=== PATIENT | male | born 1945 | race Caucasian/White ===

== ENCOUNTER 2019-11-13 18:16 | Inpatient (IN) | payer MEDICARE ==
[2019-11-13] MEDS ORDERED: Dexamethasone 10 MG/ML VIAL ONE (18:55)
[2019-11-13] MEDS ORDERED: Ondansetron ODT 4 MG TAB SL PRN (22:31)
[2019-11-13] MEDS ORDERED: Ondansetron PF 4 MG/2 ML Vial IVP PRN (22:31)
--- NOTE | 2019-11-14 02:51 | PDOC.HHP ---
Hospitalist HPI - History of Present Illness transfer for brain mass, right sided weakness History of Present Illness: This is a 74 year old male with history of hypertension, hyperlipidemia, glaucoma, chronic pain who presented as a transfer from an outside hospital for evaluation of right sided weakness. He was found to have a large left paramedian brain mass upper intracranial brain mass and transferred here for further evaluation. The patient currently has no complaints and does not remember why he came to the hospital. He thinks he may have had numbness in an extremity but doesn't remember. He denies headaches, visual changes, nausea, vomiting, hearing loss, speech changes, falls, weakness in any extremities and denies current numbness. The patient says he has been having memory problems lately and when he went to see his PCP earlier this year, he was unable to recall the three objects that his PCP asked him to remember after five minutes. ED Course: Upon arrival to the ER the patient had BP of 181/107, heart rate of 106, temp 98.5, RR 20, oxygen saturation 96% on room air. CBC and CMP were unremarkable. CT head showed a moderate sized left upper intracranial mass with vasogenic edema. The patient was given IV 10 mg decadron and admitted for further workup. Hospitalist ROS - Review of Systems Constitutional: denies: fever, chills Eyes: denies: pain, vision change ENT: denies: ear pain, ear discharge, mouth pain Respiratory: denies: cough, dry, shortness of breath, pleuritic pain Cardiovascular: denies: chest pain, palpitations, orthopnea, light headedness Gastrointestinal: denies: nausea, vomiting, abdominal pain, diarrhea, constipation Genitourinary: denies: dysuria, frequency, incontinence Musculoskeletal: denies: neck pain, shoulder pain, arm pain Neurological: reports: confusion. denies: incoordination, change in speech, seizures Hospitalist History - Past Medical History Cardiac: reports: HTN Endocrine: reports: Hypothyroidism - Past Surgical History Other Surgical History: Prostatectomy Tonsillectomy Vasectomy - Social History Smoking Status: Never smoker Alcohol: reports: Occassional Drugs: reports: none Living Situation: With Family Activity level: independent ambulation - Exam General Appearance: NAD, awake alert Eye: PERRL, anicteric sclera ENT: normocephalic atraumatic, no oropharyngeal lesions Neck: no JVD Heart: RRR, no murmur, no gallops, no rubs Respiratory: CTAB, no wheezes, no rales, no ronchi Gastrointestinal: soft, non-tender, non-distended, normal bowel sounds Extremities: no cyanosis, no clubbing, no edema Skin: normal turgor, no lesions, no rashes Neurological: cranial nerve grossly intact, normal sensation to touch. negative : facial droop Neurological - other findings: RUE 4/5 to flexion, RLE 4/5, LUE 5/5, LLE 5/5 Musculoskeletal - other findings: 4/5 strength in RUE and RLE Psychiatric: normal affect Psychiatric - other findings: has impaired short-term recall, laughs inappropriately Hospitalist H&P A/P - Plan Plan: CT head: moderate left upper intracranial mass causing mass effect, minimal subfalcine herniation and large region of vasogenic edema likely a neoplastic tumor This is a 74 year old male with past medical history of hypertension, hyperlipidemia, glaucoma who presented to an outside hospital for right sided weakness and was found to have a large left upper intracranial mass, admitted for further workup Left upper intracranial mass with vasogenic edema - noted on CT scan. Will check MRI brain with and without contrast, consult neurosurgery - s/p 10 mg IV decadron in the ER, will order 4 mg IV q4 hours, accuchecks achs Hypertension - continue lisinopril - Hyperlipidemia - continue statin Glaucoma - continue eye drops Hypothyroidism - levothyroxine Code status: DNR
[2019-11-14] MEDS: Acetaminophen 325 MG TAB PO PRN ×2 (04:32→08:41)
[2019-11-14] MEDS: Dexamethasone 4 mg/ml Vial SLOW IVP SCH ×4 (04:32→17:40)
[2019-11-14] MEDS: Levothyroxine Sodium 75 MCG TAB PO SCH (05:33)
[2019-11-14 06:59] LABS: #Lymphocytes 0.7 thou/uL (1.20-3.40); #Monocytes 0.1 thou/uL (0.11-0.59); #Neutrophils 5.4 thou/uL (1.40-6.50); %Basophils 0.1 % (0.0-1.0); %Lymphocytes 11.4 % (21.0-51.0); %Monocytes 1.2 % (0.0-10.0); %Neutrophils 87.2 % (42.0-75.0); Hemoglobin 16.8 g/dL (14.0-18.0); Mean Corpuscular HGB CONC 33.5 g/dL (32.0-36.0); Mean Corpuscular Hemoglobin 31.9 pg (27.0-31.0); Mean Corpuscular Volume 95.5 fL (78.0-98.0); Mean Platelet Volume 9.4 fL (7.4-10.4); Platelet Count 170 thou/uL (130-400); Red Blood Cell (RBC) Count 5.25 mill/uL (4.70-6.10); White Blood Cell (WBC) Count 6.2 thou/uL (4.8-10.8)
[2019-11-14 07:01] LABS: PTT 28.6 SEC (22.9-36.1); Prothrombin Time 13.6 SEC (12.0-14.7)
[2019-11-14 07:17] LABS: Anion Gap 11 mmol/L (10-20); BUN (Urea Nitrogen) 23 mg/dL (8.4-25.7); Calc. Creatinine Clearance 91 mL/min (70-130); Calcium 8.9 mg/dL (7.8-10.44); Carbon Dioxide 24 mmol/L (23-31); Chloride 105 mmol/L (98-107); Estimated GFR-MDRD Greater than 90; Glucose 133 mg/dL (83-110); Potassium 4.4 mmol/L (3.5-5.1); Sodium 136 mmol/L (136-145)
[2019-11-14] MEDS: Timolol 0.5% Ophth Soln 5 ml Bottle EA EYE SCH ×2 (08:40→21:04)
[2019-11-14] MEDS: Brimonidine Tartrate 0.2% Ophth Soln 5 ml Bottle EA EYE SCH ×2 (08:40→21:05)
[2019-11-14] MEDS: Lisinopril 5 MG TAB PO SCH (08:41)
[2019-11-14] MEDS ORDERED: Ondansetron ODT 4 MG TAB PO PRN (09:09)
[2019-11-14] MEDS ORDERED: HYDROcodone/Acetaminophen 5/325 mg Tablet PO PRN ×2 (09:10)
[2019-11-14] MEDS ORDERED: levETIRAcetam In NaCl (Iso-Os) 1,000 MG in Premix Bag 1 BAG IVPB ONE (09:17)
[2019-11-14] MEDS ORDERED: Pantoprazole 40 MG VIAL IVP SCH (10:00)
[2019-11-14] MEDS ORDERED: Citalopram 20 MG TAB PO SCH (11:45)
--- NOTE | 2019-11-14 13:39 | MRI ---
BRAIN MRI WITH AND WITHOUT CONTRAST: HISTORY: Abnormal head CT yesterday. Weakness, dizziness, headache. COMPARISON: None. CORRELATION: Noncontrast head CT 11/13/2019. FINDINGS: Gradient echo sequence: Punctate areas of signal loss associated with the mass noted on CT, likely re presenting areas of previous hemorrhage and hemosiderin. Calvarium: Appropriate T1 marrow signal intensity. Midline brain parenchyma: Unremarkable. Cerebrum:Intraaxial mass centered in the medial left occipital parietal region with associated sulcal effacement and vasogenic edema involving the left occipital and parietal lobes. Postcontrast images demonstrate peripheral heterogeneous enhancement measuring 2.8 cm mediolateral and 3.9 cm ante rior posterior. Though this lesion is intraaxial in location, it does abut the left parafalcine region posteriorly. Based upon coronal reformatted images, this lesion measures 3.9 cm in craniocauda l dimension. Ventricles: No evidence of hydrocephalus. Sinuses and mastoid air cells: Adequate aeration. Diffusion: Central arterial flow is maintained. Absent restricted diffusion. Postcontrast images:Enhancing lesion along the left cerebrum as described above. No additional areas of abnormal parenchymal enhancement. IMPRESSION: Intraparenchymal mass in the posterior left cerebrum as described above. There is associated vasogeni c edema, sulcal effacement, mass effect and [id number] subfalcine herniation. Though the lesion is intraparenchymal, there is a component that abuts the posterior left falx suggesting dural involve ment. Transcribed Date/Time: 11/14/2019 1:59 PM
--- NOTE | 2019-11-14 15:54 | CON ---
DATE OF CONSULTATION: This is Adama Caicedo PA-C dictating a report for Gallo Rubio MD. A 50-minute initial patient evaluation of which greater than 50% of the exam was spent counseling and coordinating the patient's care. Remainder of the exam was spent in review of patient's medical records and formulation of treatment plan. CHIEF COMPLAINT: Right-sided weakness, headache, and confusion. HISTORY OF PRESENT ILLNESS: Mr. Mohr is a pleasant 74-year-old male, who presents to [facility] for the above complaints. Apparently, he was noted to have a large left parafalcine mass on head CT. The patient currently at the time of my examination was alone and no family was able to provide history. According to the patient, he has had intermittent headaches over the past few weeks in the bilateral occipital regions. He denies blurred vision, nausea, vomiting, or falls. He does note, however, over the past 1 to 2 days, progressive weakness into the right arm and leg, which is new for him and prompted him to seek help. Upon review of the patient's medical records, it does appear that he has history of hypertension and hyperlipidemia. In review of his medical records, it also state that he likely has had some memory difficulties over the past several months. Neurosurgery is asked to consult given this mass with surrounding vasogenic edema. The patient was started on Decadron 4 mg q.4 hours. PHYSICAL EXAMINATION: The patient is awake, alert, and appropriate. GCS currently is 15, and he does not appear to be confused. He follows commands equally in all 4 extremities, although does appear to have [id number] right arm and leg weakness. Pupils are equal and sluggishly reactive bilaterally. He has no nystagmus on exam. He does appear to have some right pronator drift on exam. He is able to correctly identify a pen and define its purpose; however, when I asked to define an island, he says "it is where we take cruises." IMPRESSION DIAGNOSIS: Right-sided weakness with left parafalcine mass. PLAN: At this time, I have discussed the patient's case and imaging with Dr. Rubio. We will obtain a brain MRI with and without contrast with stereotactic [facility] protocol. We will amend his Decadron to be 4 mg q.6 hours and I have added Protonix. The patient is a high seizure risk, so I have also started him on a loading dose of a 1000 mg of Keppra with maintenance dose of 500 mg b.i.d. We will follow up once the MRI has been completed, but based on CT scan, it appears as such that the mass may be too large for radiosurgery, may need to discuss the possibility of craniotomy for tumor removal; however, again we will need to wait on the results of the MRI. We will follow up with the patient's family tomorrow, so we can determine the next appropriate step in treatment again after MRI. Please call with any changes in the patient's neurologic status. Otherwise, we will follow up. Job ID: [id number] MTDD
[2019-11-14] MEDS: Latanoprost 0.005% Ophth Soln 2.5 ml Bottle EA EYE SCH (21:04)
[2019-11-14] MEDS: Brinzolamide 1% Ophth SUSP 10 ml Bottle EA EYE SCH (21:05)
[2019-11-14] MEDS: Atorvastatin Calcium 10 MG TAB PO SCH (21:06)
[2019-11-15] MEDS: Dexamethasone 4 mg/ml Vial SLOW IVP SCH ×4 (00:18→17:36)
[2019-11-15] MEDS: Levothyroxine Sodium 75 MCG TAB PO SCH (06:08)
[2019-11-15] MEDS: Brimonidine Tartrate 0.2% Ophth Soln 5 ml Bottle EA EYE SCH ×2 (07:58→20:22)
[2019-11-15] MEDS: Brinzolamide 1% Ophth SUSP 10 ml Bottle EA EYE SCH ×2 (07:59→20:22)
[2019-11-15] MEDS: Citalopram 20 MG TAB PO SCH (08:01)
[2019-11-15] MEDS: Lisinopril 5 MG TAB PO SCH (08:01)
[2019-11-15] MEDS: Pantoprazole 40 MG VIAL IVP SCH (08:05)
--- NOTE | 2019-11-15 10:33 | PRG ---
DATE OF SERVICE: 11/15/2019 This is a 50-minute initial hospital visit note, in which 50 minutes was spent reviewing the imaging record, evaluation, examination, patient formulation of plan. Greater than 50% time was spent in counseling on Mj Mohr. Mr. Mohr is a very pleasant 74-year-old independent gentleman who presented with increasing headache. He was found on head CT to have a hypodense mass near the falx with associated vasogenic edema. MRI shows this to be a contrast-enhancing multilobulated mass with invasion of the splenium of the corpus callosum. I strongly suspect this is a glioblastoma multiforme. Other than confusion, he has no field cut while he has a right pronator drift. He is otherwise neurologically intact. We have initiated Decadron at this time. I discussed extensively with him and his family treatment options, but I would like to do this on a non-emergent or urgent basis. I will arrange for followup in my clinic in the next week or so that we can discuss surgical resection followed by adjuvant therapy glioblastoma. Job ID: [id number]
[2019-11-15] MEDS: Timolol 0.5% Ophth Soln 5 ml Bottle EA EYE SCH ×2 (11:52→20:22)
[2019-11-15] MEDS: Baclofen 10 MG TAB PO PRN (17:36)
--- NOTE | 2019-11-15 18:19 | HP ---
HISTORY OF PRESENT ILLNESS: The patient reports he is doing okay, has no specific complaints. Has reported some visual disturbances, but generally says he feels pretty much at his baseline. He did talk to Dr. Rubio today as did I. Dr. Rubio, explains that he had the mass lesion near the falx with some associated edema. The multilobulated mass with invasion of the splenium of the corpus callosum on MRI strongly suspicious for glioblastoma multiforme. He did talk through potential surgical options and timing. The patient, his and son are in the room. They state that they would like to go ahead and schedule surgery and they felt confident in doing so. However, they do have some type of connection with [facility] and would like to have someone there take a look at that just for reassurances. I had a very long discussion regarding all of these types of options. Ultimately, however, the plan is for the patient to be scheduled for surgery on Sunday and remain on Decadron until then. PHYSICAL EXAMINATION: VITAL SIGNS: Temperature is 97.8, pulse 84, respirations 18, O2 saturation 98% on room air, BP 137/80. GENERAL APPEARANCE: Age-appropriate male in no distress. He is awake and alert. HEART: Regular rate and rhythm. LUNGS: Clear bilaterally. ABDOMEN: Benign. EXTREMITIES: With no significant edema. NEURO: The patient appears to be cognitive, appropriate. Pupils are reactive. He has no nystagmus. He was noted to have slight right-sided weakness, which is apparently better after some Decadron. LABORATORY DATA: Glucose is 128. IMPRESSION AND PLAN: 1. Brain mass consistent with glioblastoma multiforme. As above Neurosurgery has seen the patient, anticipates excision. We will anticipate that occurring on Sunday. In the meantime, continue with the Decadron. 2. Hypertension. Continue Zestril. 3. Hypothyroidism. Continue Synthroid. 4. Hyperlipidemia, continue atorvastatin. 5. Glaucoma, continue latanoprost and Azopt eye drops. TIME SPENT: Time spent in egxn-gj-torn encounter with the patient was 25 minute. Job ID: [id number]
[2019-11-15] MEDS: Atorvastatin Calcium 10 MG TAB PO SCH (20:21)
[2019-11-15] MEDS: Latanoprost 0.005% Ophth Soln 2.5 ml Bottle EA EYE SCH (20:21)
[2019-11-16] MEDS: Dexamethasone 4 mg/ml Vial SLOW IVP SCH ×5 (00:07→23:13)
[2019-11-16] MEDS: Levothyroxine Sodium 75 MCG TAB PO SCH (05:14)
[2019-11-16] MEDS: Citalopram 20 MG TAB PO SCH (08:56)
[2019-11-16] MEDS: Lisinopril 5 MG TAB PO SCH (08:56)
[2019-11-16] MEDS: Brinzolamide 1% Ophth SUSP 10 ml Bottle EA EYE SCH ×2 (08:57→20:07)
[2019-11-16] MEDS: Pantoprazole 40 MG VIAL IVP SCH (08:57)
[2019-11-16] MEDS: Brimonidine Tartrate 0.2% Ophth Soln 5 ml Bottle EA EYE SCH ×2 (08:57→20:07)
[2019-11-16] MEDS: Timolol 0.5% Ophth Soln 5 ml Bottle EA EYE SCH ×2 (08:58→20:07)
--- NOTE | 2019-11-16 10:02 | PDOC.HOSPP ---
- Subjective Encounter Date: 11/16/19 Encounter Time: 10:00 Subjective: Feels well. Having some appropriate emotional response to his diagnosis. Has family coming to visit today. Denies symptoms otherwise. - Objective Vital Signs & Weight: Vital Signs (12 hours) Temp Pulse Resp BP BP Pulse Ox 11/16/19 08:58 95 131/81 11/16/19 08:56 95 131/81 11/16/19 08:26 97.5 F L 95 18 131/81 99 Weight Weight 169 lb 14.4 oz I&O: 11/15/19 11/16/19 11/17/19 06:59 06:59 06:59 Intake Total 580 820 240 Balance 580 820 240 Result Diagrams: 11/14/19 06:03 11/14/19 06:03 Additional Labs: Accuchecks 11/16/19 11/15/19 11/15/19 04:29 19:23 15:53 POC Glucose 123 H 160 H 157 H 11/15/19 11:53 POC Glucose 97 Hospitalist ROS - Medication Medications: Active Medications Generic Name Dose Route Start Last Admin Trade Name Freq PRN Reason Stop Dose Admin Atorvastatin Calcium 10 mg 11/14/19 21:00 11/15/19 20:21 Lipitor PO 10 mg HS SHAKIR Administration Baclofen 10 mg 11/15/19 17:15 11/15/19 17:36 Lioresal PO 10 mg BIDPRN PRN Administration Hiccups Brimonidine Tartrate 1 drop 11/14/19 09:00 11/16/19 08:57 Alphagan 0.2% Ophth Soln EA EYE 1 drop BID SHAKIR Administration Brinzolamide 1 drop 11/14/19 21:00 11/16/19 08:57 Azopt 1% Ophth Susp EA EYE 1 drop BID SHAKIR Administration Citalopram Hydrobromide 20 mg 11/15/19 09:00 11/16/19 08:56 Celexa PO 20 mg DAILY SHAKIR Administration Dexamethasone 4 mg 11/14/19 12:00 11/16/19 05:14 Decadron SLOW IVP 4 mg Q6HR SHAKIR Administration Latanoprost 1 drop 11/14/19 21:00 11/15/19 20:21 Xalatan 0.005% Ophth Soln EA EYE 1 drop HS SHAKIR Administration Levothyroxine Sodium 75 mcg 11/14/19 06:00 11/16/19 05:14 Synthroid PO 75 mcg 0600 SHAKIR Administration Lisinopril 5 mg 11/14/19 09:00 11/16/19 08:56 Zestril PO 5 mg DAILY SHAKIR Administration Pantoprazole Sodium 40 mg 11/15/19 09:00 11/16/19 08:57 Protonix IVP 40 mg DAILY SHAKIR Administration Sodium Chloride 10 ml 11/14/19 09:00 11/16/19 08:58 Flush - Normal Saline IVF 10 ml Q12HR SHAKIR Administration Timolol Maleate 1 drop 11/14/19 09:00 11/16/19 08:58 Timoptic 0.5% Ophth Soln EA EYE 1 drop BID SHAKIR Administration - Exam Heart: RRR, no murmur, no gallops, no rubs, normal peripheral pulses Respiratory: CTAB, no wheezes, no rales, no ronchi, normal chest expansion, no tachypnea, normal percussion Gastrointestinal: soft, non-tender, non-distended, normal bowel sounds, no palpable masses, no hepatomegaly, no splenomegaly, no bruit Skin: normal turgor, no lesions, no rashes Neurological: no focal deficits Musculoskeletal: normal tone, normal strength, no muscle wasting Psychiatric: normal affect, normal behavior, A&O x 3 Hosp A/P (1) Brain mass Code(s): G93.89 - OTHER SPECIFIED DISORDERS OF BRAIN Status: Acute (2) HTN (hypertension) Code(s): I10 - ESSENTIAL (PRIMARY) HYPERTENSION Status: Acute (3) HLD (hyperlipidemia) Code(s): E78.5 - HYPERLIPIDEMIA, UNSPECIFIED Status: Acute (4) Glaucoma Code(s): H40.9 - UNSPECIFIED GLAUCOMA Status: Acute (5) Hypothyroidism Code(s): E03.9 - HYPOTHYROIDISM, UNSPECIFIED Status: Acute (6) Hiccups Code(s): R06.6 - HICCOUGH Status: Acute - Plan Mass consistent with glioblastoma multiforme. Neurosurgery following. Sana, Keppra. Surg on Sunday. Continue home meds. Baclofen prn hiccups. Likely secondary to the Decadron. Change meds to po and encourage ambulation.
--- NOTE | 2019-11-16 13:00 | PRG ---
DATE OF SERVICE: 11/16/2019 This is a 15 minutes subsequent visit note, in which 15 minutes were spent reviewing the imaging record, evaluation, examination of the patient, formulation of plan. Greater than 50% time was spent in counseling on Mj Mohr. Mr. Mohr appears to be in good spirits. He is conversing with his brother and [id number]. I again went over the details of the surgery and at this point they suspect they would like to stay locally, have the surgery as such. I will list it at this point tentatively for Sunday. It should include a stereotactic left parietal craniotomy for tumor resection. They do have some more questions. The family is not present. At this point I will touch base with him again tomorrow. Job ID: [id number]
[2019-11-16] MEDS: Baclofen 10 MG TAB PO PRN (18:26)
[2019-11-16] MEDS: levETIRAcetam 500 MG TAB PO SCH (20:06)
[2019-11-16] MEDS: Atorvastatin Calcium 10 MG TAB PO SCH (20:06)
[2019-11-16] MEDS: Latanoprost 0.005% Ophth Soln 2.5 ml Bottle EA EYE SCH (20:07)
[2019-11-17] MEDS: Dexamethasone 4 mg/ml Vial SLOW IVP SCH ×3 (05:32→18:19)
[2019-11-17] MEDS: Levothyroxine Sodium 75 MCG TAB PO SCH (05:32)
--- NOTE | 2019-11-17 09:08 | PRG ---
DATE OF SERVICE: 11/17/2019 This is Adama Caicedo PA-C dictating a report for Gallo Rubio MD. I have seen Mr. Mohr and he appears to be neurologically intact. He would like to proceed with craniotomy for tumor resection. We plan to do this tomorrow. We will obtain labs and he will be n.p.o. at midnight. Dr. Rubio will return at some point either today or tomorrow to discuss the procedure and further questions with the patient's family, although this has been broached already during his hospitalization. The patient remains neurologically intact and denies headache, and his right upper extremity weakness has improved as he has been on steroids. Please call with any changes in the patient's neurologic status. Otherwise, we will follow up. Job ID: [id number]
[2019-11-17] MEDS: Lisinopril 5 MG TAB PO SCH (09:21)
[2019-11-17] MEDS: Citalopram 20 MG TAB PO SCH (09:21)
[2019-11-17] MEDS: levETIRAcetam 500 MG TAB PO SCH ×2 (09:21→19:24)
[2019-11-17] MEDS: Pantoprazole 40 MG VIAL IVP SCH (09:25)
[2019-11-17] MEDS: Brimonidine Tartrate 0.2% Ophth Soln 5 ml Bottle EA EYE SCH ×2 (09:26→19:25)
[2019-11-17] MEDS: Brinzolamide 1% Ophth SUSP 10 ml Bottle EA EYE SCH ×2 (09:26→19:25)
[2019-11-17] MEDS: Timolol 0.5% Ophth Soln 5 ml Bottle EA EYE SCH ×2 (09:26→19:25)
--- NOTE | 2019-11-17 10:30 | PRG ---
DATE OF SERVICE: This is a 25 minutes subsequent visit note, in which 25 minutes were spent reviewing the imaging, examination of the patient, and formulation of plan. I discussed extensively with the patient and his family that we will proceed to the operating room tomorrow for stereotactic left parieto-occipital craniotomy and tumor resection. I suspect this is a glioblastoma. They understand that the goal will be to be as aggressive as possible to try to reduce neurologic deficit postoperatively. They understand these risks and wished to proceed. Job ID: [id number]
[2019-11-17 10:46] LABS: #Lymphocytes 1.1 thou/uL (1.20-3.40); #Monocytes 0.7 thou/uL (0.11-0.59); #Neutrophils 10.8 thou/uL (1.40-6.50); %Basophils 0.1 % (0.0-1.0); %Eosinophils 0.1 % (0.0-10.0); %Lymphocytes 8.6 % (21.0-51.0); %Monocytes 5.8 % (0.0-10.0); %Neutrophils 85.4 % (42.0-75.0); Mean Corpuscular HGB CONC 33.3 g/dL (32.0-36.0); Mean Corpuscular Hemoglobin 32.1 pg (27.0-31.0); Mean Corpuscular Volume 96.4 fL (78.0-98.0); Mean Platelet Volume 9.2 fL (7.4-10.4); Platelet Count 186 thou/uL (130-400); Red Blood Cell (RBC) Count 5.31 mill/uL (4.70-6.10); White Blood Cell (WBC) Count 12.7 thou/uL (4.8-10.8)
[2019-11-17 10:53] LABS: INR-International Normal Ratio 1.1; PTT 25.7 SEC (22.9-36.1); Prothrombin Time 13.9 SEC (12.0-14.7)
[2019-11-17 11:08] LABS: Anion Gap 11 mmol/L (10-20); BUN (Urea Nitrogen) 24 mg/dL (8.4-25.7); Calc. Creatinine Clearance 80 mL/min (70-130); Calcium 9.2 mg/dL (7.8-10.44); Carbon Dioxide 27 mmol/L (23-31); Chloride 102 mmol/L (98-107); Estimated GFR-MDRD 83; Glucose 185 mg/dL (83-110); Potassium 4.3 mmol/L (3.5-5.1); Sodium 136 mmol/L (136-145)
--- NOTE | 2019-11-17 16:09 | PDOC.PALFU ---
Palliative Care Follow-up Note Attempted to visit with patient, on two occasions there was multiple family and friends visiting with patient. Will follow up.
[2019-11-17] MEDS: Atorvastatin Calcium 10 MG TAB PO SCH (19:24)
[2019-11-17] MEDS: Baclofen 10 MG TAB PO PRN (19:24)
[2019-11-17] MEDS: Latanoprost 0.005% Ophth Soln 2.5 ml Bottle EA EYE SCH (19:25)
--- NOTE | 2019-11-17 22:21 | PDOC.HOSPP ---
- Subjective Subjective: Doing well. Has a lot family around today. Generally in good spirits. - Objective Vital Signs & Weight: Vital Signs (12 hours) Temp Pulse Resp BP BP Pulse Ox 11/17/19 19:50 99 11/17/19 19:25 65 149/85 H 11/17/19 19:12 97.4 F L 65 19 149/85 H 99 Weight Weight 169 lb 14.4 oz I&O: 11/16/19 11/17/19 11/18/19 06:59 06:59 06:59 Intake Total 820 1080 720 Balance 820 1080 720 Result Diagrams: 11/17/19 10:40 11/17/19 10:40 Additional Labs: Accuchecks 11/17/19 11/17/19 11/17/19 19:17 17:13 11:32 POC Glucose 160 H 106 123 H 11/17/19 05:38 POC Glucose 117 H Hospitalist ROS - Medication Medications: Active Medications Generic Name Dose Route Start Last Admin Trade Name Freq PRN Reason Stop Dose Admin Atorvastatin Calcium 10 mg 11/14/19 21:00 11/17/19 19:24 Lipitor PO 10 mg HS SHAKIR Administration Baclofen 10 mg 11/15/19 17:15 11/17/19 19:24 Lioresal PO 10 mg BIDPRN PRN Administration Hiccups Brimonidine Tartrate 1 drop 11/14/19 09:00 11/17/19 19:25 Alphagan 0.2% Ophth Soln EA EYE 1 drop BID SHAKIR Administration Brinzolamide 1 drop 11/14/19 21:00 11/17/19 19:25 Azopt 1% Ophth Susp EA EYE 1 drop BID SHAKIR Administration Citalopram Hydrobromide 20 mg 11/15/19 09:00 11/17/19 09:21 Celexa PO 20 mg DAILY SHAKIR Administration Dexamethasone 4 mg 11/14/19 12:00 11/17/19 18:19 Decadron SLOW IVP 4 mg Q6HR SHAKIR Administration Latanoprost 1 drop 11/14/19 21:00 11/17/19 19:25 Xalatan 0.005% Ophth Soln EA EYE 1 drop HS SHAKIR Administration Levetiracetam 500 mg 11/16/19 21:00 11/17/19 19:24 Keppra PO 500 mg BID SHKAIR Administration Levothyroxine Sodium 75 mcg 11/14/19 06:00 11/17/19 05:32 Synthroid PO 75 mcg 0600 SHAKIR Administration Lisinopril 5 mg 11/14/19 09:00 11/17/19 09:21 Zestril PO 5 mg DAILY SHAKIR Administration Pantoprazole Sodium 40 mg 11/15/19 09:00 11/17/19 09:25 Protonix IVP 40 mg DAILY SHAKIR Administration Sodium Chloride 10 ml 11/14/19 09:00 11/17/19 19:26 Flush - Normal Saline IVF 10 ml Q12HR SHAKIR Administration Timolol Maleate 1 drop 11/14/19 09:00 11/17/19 19:25 Timoptic 0.5% Ophth Soln EA EYE 1 drop BID SHAKIR Administration - Exam General Appearance: NAD, awake alert Heart: RRR, no murmur, no gallops, no rubs, normal peripheral pulses Respiratory: CTAB, no wheezes, no rales, no ronchi, normal chest expansion, no tachypnea, normal percussion Gastrointestinal: soft, non-tender, non-distended, normal bowel sounds, no palpable masses, no hepatomegaly, no splenomegaly, no bruit Psychiatric: normal affect, normal behavior, A&O x 3 Hosp A/P (1) Brain mass Code(s): G93.89 - OTHER SPECIFIED DISORDERS OF BRAIN Status: Acute (2) HTN (hypertension) Code(s): I10 - ESSENTIAL (PRIMARY) HYPERTENSION Status: Acute (3) HLD (hyperlipidemia) Code(s): E78.5 - HYPERLIPIDEMIA, UNSPECIFIED Status: Acute (4) Glaucoma Code(s): H40.9 - UNSPECIFIED GLAUCOMA Status: Acute (5) Hypothyroidism Code(s): E03.9 - HYPOTHYROIDISM, UNSPECIFIED Status: Acute (6) Hiccups Code(s): R06.6 - HICCOUGH Status: Acute - Plan Mass consistent with glioblastoma multiforme. Neurosurgery following. Decarthurron, Lisandrara. Surg on Sunday. Continue home meds. Baclofen prn hiccups. Likely secondary to the Decadron. Change meds to po and encourage ambulation.
[2019-11-18] MEDS: Dexamethasone 4 mg/ml Vial SLOW IVP SCH ×5 (00:15→23:22)
[2019-11-18] MEDS: Levothyroxine Sodium 75 MCG TAB PO SCH (05:33)
[2019-11-18] MEDS ORDERED: Thrombin 5000 UNITS/5 ML VIAL ONE (06:06)
[2019-11-18] MEDS ORDERED: Bacitracin Zinc Ointment 30 gm TUBE ONE (06:06)
[2019-11-18] MEDS ORDERED: Sodium Chloride 0.9% 10 ML ONE (06:06)
[2019-11-18] MEDS ORDERED: Fentanyl 250 MCG/5 ML VIAL ONE (07:07)
[2019-11-18] MEDS ORDERED: Midazolam HCl 2 mg/2 ml Vial ONE (07:14)
[2019-11-18] MEDS ORDERED: Dexamethasone 20 MG/5 ML VIAL ONE (10:33)
[2019-11-18] MEDS ORDERED: Ondansetron PF 4 MG/2 ML Vial ONE (10:33)
[2019-11-18] MEDS ORDERED: Glycopyrrolate 0.2 MG/ML 5 ML SYRINGE ONE (10:33)
[2019-11-18] MEDS ORDERED: Rocuronium Bromide 10 MG/ML (10ML VIAL) ONE (10:33)
[2019-11-18] MEDS ORDERED: PROPOFOL 200 MG/20 ML VIAL ONE (10:33)
[2019-11-18] MEDS ORDERED: hydrALAZINE 20 MG/ML VIAL SLOW IVP SCH (11:05)
[2019-11-18] MEDS ORDERED: hydrALAZINE 20 MG/ML VIAL ONE (11:05)
[2019-11-18] MEDS ORDERED: CEFAZOLIN 2 GM in Premix Bag 1 BAG IVPB SCH (11:46)
[2019-11-18] MEDS: Citalopram 20 MG TAB PO SCH (12:48)
[2019-11-18] MEDS: levETIRAcetam 500 MG TAB PO SCH ×2 (12:48→20:19)
[2019-11-18] MEDS: Brinzolamide 1% Ophth SUSP 10 ml Bottle EA EYE SCH ×2 (12:48→21:56)
[2019-11-18] MEDS: Lisinopril 5 MG TAB PO SCH (12:48)
[2019-11-18] MEDS: Pantoprazole 40 MG VIAL IVP SCH (12:49)
[2019-11-18] MEDS: Timolol 0.5% Ophth Soln 5 ml Bottle EA EYE SCH ×2 (12:49→21:55)
[2019-11-18] MEDS: Brimonidine Tartrate 0.2% Ophth Soln 5 ml Bottle EA EYE SCH ×2 (12:53→21:56)
[2019-11-18] MEDS: hydrALAZINE 20 MG/ML VIAL SLOW IVP PRN (13:03)
[2019-11-18] MEDS: Morphine 4 MG/ML VIAL SLOW IVP PRN ×2 (13:25→20:26)
[2019-11-18] MEDS: Ondansetron PF 4 MG/2 ML Vial IVP PRN (14:13)
[2019-11-18] MEDS: niCARdipine 25 MG in Sodium Chloride 0.9% 250 ML 240 ML IVPB SCH ×3 (15:01→22:52)
--- NOTE | 2019-11-18 17:14 | PDOC.HOSPP ---
- Subjective Subjective: Doing very well post op. Has a headache. No other concerns. - Objective Vital Signs & Weight: Vital Signs (12 hours) Pulse BP Pulse Ox 11/18/19 13:03 78 174/70 H 11/18/19 12:50 60 11/18/19 12:49 60 11/18/19 12:48 60 11/18/19 12:27 97 Weight Weight 169 lb 14.4 oz Most Recent Monitor Data Heart Rate from ECG 84 NIBP 147/75 NIBP BP-Mean 99 Respiration from ECG 6 SpO2 95 I&O: 11/17/19 11/18/19 11/19/19 06:59 06:59 06:59 Intake Total 1080 1440 0 Output Total 570 Balance 6278 1440 -570 Result Diagrams: 11/17/19 10:40 11/17/19 10:40 Additional Labs: Accuchecks 11/18/19 11/18/19 11/17/19 16:41 04:14 19:17 POC Glucose 119 H 106 160 H 11/17/19 17:13 POC Glucose 106 Hospitalist ROS - Medication Medications: Active Medications Generic Name Dose Route Start Last Admin Trade Name Freq PRN Reason Stop Dose Admin Hydrocodone Bitart/Acetaminophen 2 tab 11/14/19 09:10 11/18/19 14:13 [place] 5/325 PO 2 tab Q4H PRN Administration Moderate Pain (4-6) Atorvastatin Calcium 10 mg 11/14/19 21:00 11/17/19 19:24 Lipitor PO 10 mg HS SHAKIR Administration Brimonidine Tartrate 1 drop 11/14/19 09:00 11/18/19 12:53 Alphagan 0.2% Ophth Soln EA EYE Not Given BID SHAKIR Brinzolamide 1 drop 11/14/19 21:00 11/18/19 12:48 Azopt 1% Ophth Susp EA EYE Not Given BID SHAKIR Citalopram Hydrobromide 20 mg 11/15/19 09:00 11/18/19 12:48 Celexa PO Not Given DAILY SHAKIR Dexamethasone 4 mg 11/14/19 12:00 11/18/19 13:03 Decadron SLOW IVP 4 mg Q6HR SHAKIR Administration Hydralazine HCl 10 mg 11/18/19 12:35 11/18/19 13:03 Apresoline SLOW IVP 10 mg Q15MIN PRN Administration SBP greater than 140 Nicardipine HCl 25 mg/ Sodium 250 mls @ 0 mls/hr 11/18/19 14:15 11/18/19 15: 01 Chloride IVPB 250 mls INF SHAKIR Administration Protocol Titrate Latanoprost 1 drop 11/14/19 21:00 11/17/19 19:25 Xalatan 0.005% Ophth Soln EA EYE 1 drop HS SHAKIR Administration Levetiracetam 500 mg 11/16/19 21:00 11/18/19 12:48 Keppra PO Not Given BID [facility] Levothyroxine Sodium 75 mcg 11/14/19 06:00 11/18/19 05:33 Synthroid PO Not Given 0600 [facility] Lisinopril 5 mg 11/14/19 09:00 11/18/19 12:48 Zestril PO Not Given DAILY [facility] Morphine Sulfate 4 mg 11/14/19 09:08 11/18/19 13:25 Morphine SLOW IVP 4 mg Q4H PRN Administration Severe Pain (7-10) Ondansetron HCl 4 mg 11/14/19 09:09 11/18/19 14:13 Zofran IVP 4 mg Q6H PRN Administration Nausea/Vomiting Pantoprazole Sodium 40 mg 11/15/19 09:00 11/18/19 12:49 Protonix IVP Not Given DAILY [facility] Sodium Chloride 10 ml 11/14/19 09:00 11/18/19 12:49 Flush - Normal Saline IVF Not Given Q12HR [facility] Timolol Maleate 1 drop 11/14/19 09:00 11/18/19 12:49 Timoptic 0.5% Ophth Soln EA EYE Not Given BID SHAKIR - Exam General Appearance: NAD, awake alert ENT - other findings: Head bandaged with post-op dressing. Heart: RRR, no murmur, no gallops, no rubs, normal peripheral pulses Respiratory: CTAB, no wheezes, no rales, no ronchi, normal chest expansion, no tachypnea, normal percussion Skin: normal turgor Musculoskeletal: normal tone Psychiatric: normal affect, normal behavior, A&O x 3 Hosp A/P (1) Brain mass Code(s): G93.89 - OTHER SPECIFIED DISORDERS OF BRAIN Status: Acute (2) HTN (hypertension) Code(s): I10 - ESSENTIAL (PRIMARY) HYPERTENSION Status: Acute (3) HLD (hyperlipidemia) Code(s): E78.5 - HYPERLIPIDEMIA, UNSPECIFIED Status: Acute (4) Glaucoma Code(s): H40.9 - UNSPECIFIED GLAUCOMA Status: Acute (5) Hypothyroidism Code(s): E03.9 - HYPOTHYROIDISM, UNSPECIFIED Status: Acute (6) Hiccups Code(s): R06.6 - HICCOUGH Status: Acute - Plan Mass consistent with glioblastoma multiforme. Post-op from today. Apparently went well and was completely excised. Neurosurgery following. Mariana. Continue home meds.
[2019-11-18] MEDS: Atorvastatin Calcium 10 MG TAB PO SCH (20:19)
[2019-11-18] MEDS: Latanoprost 0.005% Ophth Soln 2.5 ml Bottle EA EYE SCH (21:56)
[2019-11-19] MEDS: niCARdipine 50 MG in Sodium Chloride 0.9% 250 ML 230 ML IVPB SCH ×5 (01:21→19:22)
[2019-11-19] MEDS: hydrALAZINE 20 MG/ML VIAL SLOW IVP PRN ×3 (02:06→05:10)
[2019-11-19] MEDS: Morphine 4 MG/ML VIAL SLOW IVP PRN ×3 (03:10→14:38)
[2019-11-19] MEDS: Levothyroxine Sodium 75 MCG TAB PO SCH (05:10)
[2019-11-19] MEDS: Dexamethasone 4 mg/ml Vial SLOW IVP SCH ×3 (05:10→17:39)
[2019-11-19] MEDS: Pantoprazole 40 MG VIAL IVP SCH (08:27)
[2019-11-19] MEDS: Lisinopril 5 MG TAB PO SCH (08:27)
[2019-11-19] MEDS: levETIRAcetam 500 MG TAB PO SCH ×2 (08:28→20:49)
[2019-11-19] MEDS: Citalopram 20 MG TAB PO SCH (08:28)
[2019-11-19] MEDS: Brinzolamide 1% Ophth SUSP 10 ml Bottle EA EYE SCH ×2 (08:29→20:50)
[2019-11-19] MEDS: Timolol 0.5% Ophth Soln 5 ml Bottle EA EYE SCH ×2 (08:29→20:50)
[2019-11-19] MEDS: Brimonidine Tartrate 0.2% Ophth Soln 5 ml Bottle EA EYE SCH ×2 (08:29→20:50)
[2019-11-19 09:07] LABS: Mean Corpuscular HGB CONC 33.5 g/dL (32.0-36.0); Mean Corpuscular Hemoglobin 32.5 pg (27.0-31.0); Mean Corpuscular Volume 97.1 fL (78.0-98.0); Mean Platelet Volume 9.5 fL (7.4-10.4); Platelet Count 170 thou/uL (130-400); Red Blood Cell (RBC) Count 4.92 mill/uL (4.70-6.10); White Blood Cell (WBC) Count 18.1 thou/uL (4.8-10.8)
[2019-11-19 09:23] LABS: Hypersemented Neutrophil SLIGHT; Lymphocytes 3 % (21-51); MDiff Complete? YES; Monocytes 8 % (0-10); Neutrophil 88 % (42-75); Platelet Morphology Comment Appears Adequate; Reactive Lymphocytes 1 % (0-10); Vacuoles SLIGHT
--- NOTE | 2019-11-19 09:28 | CT ---
PRELIMINARY REPORT/[facility]/EMERGENCY AFTER HOURS PROCEDURE Exam: Unenhanced CT brain. History: Post-op left occipital parietal tumor resection . Comparison: None provided. Findings: Included paranasal sinuses are clear. Left occipital parietal craniotomy is present. Ther e is adjacent air within the scalp and scalp swelling as well as skin josé miguel. Postoperative pneumoc ephalus is present with air and frontal region measuring 8 mm in AP dimension. Small amount of extra -axial air is present surgical bed measuring 7 mm. Punctate foci of air are present within the posts urgical bed. Within site of resection is fluid cavity measuring 5.3 x 2.7 cm. There is adjacent whi te matter edema within the left parietal lobe. There is no midline shift. Trace subarachnoid blood is present left vertex. Impression: Postsurgical changes left parietal-occipital lobe. Associated pneumocephalus. Trace sub arachnoid blood is vertex. ELECTRONICALLY SIGNED BY: Marimar Baez MD Nov 19, 2019 5:35:18 AM INSTRUMENT ASSEMBLER FINAL REPORT EMERGENT AFTER HOURS CT OF THE BRAIN WITHOUT CONTRAST: FINDINGS/IMPRESSION: I agree with the findings and impression given in the preliminary report per [facility] physici an. There are interval postsurgical changes in the left parietal calvarium. The previously seen mas s appears to have been removed. There is encephalomalacia within the operative bed. Pneumocephalus is seen.
[2019-11-19 09:47] LABS: Anion Gap 11 mmol/L (10-20); BUN (Urea Nitrogen) 31 mg/dL (8.4-25.7); Calc. Creatinine Clearance 87 mL/min (70-130); Calcium 7.6 mg/dL (7.8-10.44); Carbon Dioxide 22 mmol/L (23-31); Chloride 96 mmol/L (98-107); Estimated GFR-MDRD Greater than 90; Glucose 151 mg/dL (83-110); Potassium 3.8 mmol/L (3.5-5.1); Sodium 125 mmol/L (136-145)
--- NOTE | 2019-11-19 11:38 | PRG ---
DATE OF SERVICE: 11/19/2019 Mr. Mohr is postoperative day #1 from left parietal occipital glioblastoma resection. He is confused this morning and is slower to move to the right side, although he does activate the right arm and the right leg. He does have some mild neglect as well on the right side. I suspect he has a visual field cut as well. He is more confused than he was yesterday. Head CT is satisfactory, the reason for his confusion however is his sodium is 125, it was 136 just two days ago. As such, we will free water restrict him and allow Gatorade and we will increase his normal saline IV fluids to 100 mL/h. We will keep him in the ICU. We will await pathology. We will continue with prophylactic levetiracetam and begin his Decadron taper tomorrow. Job ID: [id number]
[2019-11-19] MEDS: Sodium Chloride 0.9% 1,000 ML IV SCH (12:57)
--- NOTE | 2019-11-19 13:48 | ULT ---
EXAM: Bilateral lower extremity venous ultrasound HISTORY: Bilateral lower extremity edema; impaired mobility COMPARISON: None TECHNIQUE: Multiplanar grayscale and color Doppler images were obtained in a bilateral lower extremit y venous ultrasound. Spectral analysis of the Doppler waveforms were performed. FINDINGS: The bilateral common femoral vein, profunda femoral veins, superficial femoral veins, and p opliteal veins are normal in appearance without visible thrombus. These vessels demonstrate normal compression, flow, and augmentation. The bilateral posterior tibial veins and greater saphenous veins are patent without evidence of throm bus. IMPRESSION: No evidence of DVT.
[2019-11-19] MEDS: Ondansetron PF 4 MG/2 ML Vial IVP PRN (16:08)
[2019-11-19 16:20] LABS: Sodium 127 mmol/L (136-145)
[2019-11-19] MEDS: Atorvastatin Calcium 10 MG TAB PO SCH (20:49)
[2019-11-19] MEDS: Enoxaparin Sodium 40 MG/0.4 ML SYRINGE SC SCH (20:49)
[2019-11-19] MEDS: Latanoprost 0.005% Ophth Soln 2.5 ml Bottle EA EYE SCH (20:50)
[2019-11-19 21:12] LABS: Sodium 125 mmol/L (136-145)
--- NOTE | 2019-11-19 21:46 | PDOC.HOSPP ---
- Subjective Subjective: Doing ok. He has some headache. Some confusion reported earlier. - Objective Vital Signs & Weight: Vital Signs (12 hours) Temp Pulse BP Pulse Ox 11/19/19 20:50 72 147/55 H 11/19/19 20:00 98.0 F 11/19/19 18:54 94 L 11/19/19 16:00 98.6 F 11/19/19 12:00 98.1 F Weight Weight 169 lb 14.4 oz Most Recent Monitor Data Heart Rate from ECG 73 NIBP 161/68 NIBP BP-Mean 99 Respiration from ECG 21 SpO2 93 I&O: 11/18/19 11/19/19 11/20/19 06:59 06:59 06:59 Intake Total 1440 4046 2714 Output Total 1540 750 Balance 1440 2506 1964 Result Diagrams: 11/19/19 08:43 11/19/19 20:48 Additional Labs: Accuchecks 11/19/19 11/19/19 11/19/19 20:51 16:00 05:50 POC Glucose 133 H 105 138 H Hospitalist ROS - Medication Medications: Active Medications Generic Name Dose Route Start Last Admin Trade Name Freq PRN Reason Stop Dose Admin Hydrocodone Bitart/Acetaminophen 2 tab 11/14/19 09:10 11/18/19 14:13 [place] 5/325 PO 2 tab Q4H PRN Administration Moderate Pain (4-6) Atorvastatin Calcium 10 mg 11/14/19 21:00 11/19/19 20:49 Lipitor PO 10 mg HS SHAKIR Administration Brimonidine Tartrate 1 drop 11/14/19 09:00 11/19/19 20:50 Alphagan 0.2% Ophth Soln EA EYE 1 drop BID SHAKIR Administration Brinzolamide 1 drop 11/14/19 21:00 11/19/19 20:50 Azopt 1% Ophth Susp EA EYE 1 drop BID SHAKIR Administration Citalopram Hydrobromide 20 mg 11/15/19 09:00 11/19/19 08:28 Celexa PO 20 mg DAILY SHAKIR Administration Dexamethasone 4 mg 11/14/19 12:00 11/19/19 17:39 Decadron SLOW IVP 11/20/19 00:00 4 mg Q6HR SHAKIR Administration Enoxaparin Sodium 40 mg 11/19/19 21:00 11/19/19 20:49 Lovenox SC 40 mg 2100 SHAKIR Administration Hydralazine HCl 10 mg 11/18/19 12:35 11/19/19 05:10 Apresoline SLOW IVP 10 mg Q15MIN PRN Administration SBP greater than 140 Nicardipine HCl 50 mg/ Sodium 250 mls @ 0 mls/hr 11/19/19 00:30 11/19/19 19: 22 Chloride IVPB 250 mls INF SHAKIR Administration Protocol Titrate Sodium Chloride 1,000 mls @ 100 mls/hr 11/19/19 13:00 11/19/19 12:57 Normal Saline 0.9% IV 1,000 mls INF SHAKIR Administration Latanoprost 1 drop 11/14/19 21:00 11/19/19 20:50 Xalatan 0.005% Ophth Soln EA EYE 1 drop HS SHAKIR Administration Levetiracetam 500 mg 11/16/19 21:00 11/19/19 20:49 Keppra PO 500 mg BID SHAKIR Administration Levothyroxine Sodium 75 mcg 11/14/19 06:00 11/19/19 05:10 Synthroid PO 75 mcg 0600 SHAKIR Administration Lisinopril 5 mg 11/14/19 09:00 11/19/19 08:27 Zestril PO 5 mg DAILY SHAKIR Administration Morphine Sulfate 4 mg 11/14/19 09:08 11/19/19 14:38 Morphine SLOW IVP 4 mg Q4H PRN Administration Severe Pain (7-10) Ondansetron HCl 4 mg 11/14/19 09:09 11/19/19 16:08 Zofran IVP 4 mg Q6H PRN Administration Nausea/Vomiting Pantoprazole Sodium 40 mg 11/15/19 09:00 11/19/19 08:27 Protonix IVP 40 mg DAILY SHAKIR Administration Timolol Maleate 1 drop 11/14/19 09:00 11/19/19 20:50 Timoptic 0.5% Ophth Soln EA EYE 1 drop BID SHAKRI Administration - Exam General Appearance: NAD, awake alert ENT - other findings: Head dresssed with post-op dressing. Heart: RRR, no murmur, no gallops, no rubs, normal peripheral pulses Respiratory: CTAB, no wheezes, no rales, no ronchi, normal chest expansion, no tachypnea, normal percussion Gastrointestinal: soft, non-tender, normal bowel sounds Gastrointestinal - other findings: Slightly distended Extremities: no cyanosis, no clubbing, no edema Skin: normal turgor Hosp A/P (1) Brain mass Code(s): G93.89 - OTHER SPECIFIED DISORDERS OF BRAIN Status: Acute (2) HTN (hypertension) Code(s): I10 - ESSENTIAL (PRIMARY) HYPERTENSION Status: Acute (3) HLD (hyperlipidemia) Code(s): E78.5 - HYPERLIPIDEMIA, UNSPECIFIED Status: Acute (4) Glaucoma Code(s): H40.9 - UNSPECIFIED GLAUCOMA Status: Acute (5) Hypothyroidism Code(s): E03.9 - HYPOTHYROIDISM, UNSPECIFIED Status: Acute (6) Hiccups Code(s): R06.6 - HICCOUGH Status: Acute (7) Hyponatremia Code(s): E87.1 - HYPO-OSMOLALITY AND HYPONATREMIA Status: Acute - Plan Mass consistent with glioblastoma multiforme. Post-op day 1. Neurosurgery following. Mariana. Free water restriction. Sodium slightly better on recheck. Decadron taper starting tomorrow. Continue home meds.
[2019-11-20] MEDS: Dexamethasone 4 mg/ml Vial SLOW IVP SCH ×5 (00:01→23:50)
[2019-11-20] MEDS: niCARdipine 50 MG in Sodium Chloride 0.9% 250 ML 230 ML IVPB SCH (02:28)
[2019-11-20] MEDS: Sodium Chloride 0.9% 1,000 ML IV SCH ×3 (02:29→23:49)
[2019-11-20 04:17] LABS: #Lymphocytes 0.4 thou/uL (1.20-3.40); #Monocytes 0.6 thou/uL (0.11-0.59); #Neutrophils 10.7 thou/uL (1.40-6.50); %Eosinophils 0.1 % (0.0-10.0); %Lymphocytes 3.6 % (21.0-51.0); %Monocytes 5.4 % (0.0-10.0); %Neutrophils 90.9 % (42.0-75.0); Anion Gap 12 mmol/L (10-20); BUN (Urea Nitrogen) 40 mg/dL (8.4-25.7); Calc. Creatinine Clearance 94 mL/min (70-130); Calcium 7.8 mg/dL (7.8-10.44); Carbon Dioxide 20 mmol/L (23-31); Chloride 99 mmol/L (98-107); Estimated GFR-MDRD Greater than 90; Glucose 143 mg/dL (83-110); Hemoglobin 15.2 g/dL (14.0-18.0); Mean Corpuscular HGB CONC 34.2 g/dL (32.0-36.0); Mean Corpuscular Hemoglobin 32.2 pg (27.0-31.0); Mean Corpuscular Volume 94.1 fL (78.0-98.0); Mean Platelet Volume 9.7 fL (7.4-10.4); Platelet Count 147 thou/uL (130-400); RBC Distribution Width 12.1 % (11.5-14.5); Red Blood Cell (RBC) Count 4.73 mill/uL (4.70-6.10); Sodium 127 mmol/L (136-145); White Blood Cell (WBC) Count 11.8 thou/uL (4.8-10.8)
[2019-11-20] MEDS: Levothyroxine Sodium 75 MCG TAB PO SCH (05:27)
[2019-11-20] MEDS: Brimonidine Tartrate 0.2% Ophth Soln 5 ml Bottle EA EYE SCH ×2 (08:28→21:13)
[2019-11-20] MEDS: Timolol 0.5% Ophth Soln 5 ml Bottle EA EYE SCH ×2 (08:29→21:14)
[2019-11-20] MEDS: Lisinopril 5 MG TAB PO SCH (08:30)
[2019-11-20] MEDS: levETIRAcetam 500 MG TAB PO SCH ×2 (08:30→21:12)
[2019-11-20] MEDS: Citalopram 20 MG TAB PO SCH (08:30)
[2019-11-20] MEDS: Brinzolamide 1% Ophth SUSP 10 ml Bottle EA EYE SCH ×2 (08:30→21:16)
[2019-11-20] MEDS: Pantoprazole 40 MG VIAL IVP SCH (08:37)
--- NOTE | 2019-11-20 09:22 | CT ---
CT Brain WO Con: 11/20/2019 8:51 AM CLINICAL HISTORY: Status post left craniectomy for tumor resection. IMAGING TECHNIQUE: Multiple CT images were obtained of the brain without IV contrast. COMPARISON: CT the brain dated November 19, 2019 FINDINGS: Brain: The resection cavity involving the left parietal lobe is unchanged. Scattered pneumocephalus is stable appearing. Component of pneumocephalus overlying the anterior left frontal lobe is stable. Dural calcifications overlying the left anterior frontal lobe are stable appearing. The exten t of the vasogenic edema surrounding the resection cavity is mildly improved. There is 2 mm of [id number] midline shift which is improved from the prior exam where it measured approximately 3.3 mm. Ventricles: Normal. No hydrocephalus.. Skull: The left parietal craniectomy site is unchanged. Small amount of pneumocephalus is again seen underlying the craniectomy flap.. Visualized Paranasal sinuses: Clear.. Mastoid air cells:Clear. Extracranial soft tissues:Normal. IMPRESSION: Mild interval decrease in the extent of the vasogenic edema surrounding the left parietal resection c avity with less [id number] midline shift of approximately 2 mm. Stable pneumocephalus.
--- NOTE | 2019-11-20 09:36 | PDOC.HOSPP ---
- Subjective Subjective: Still a little emotional, but ok overall. - Objective Vital Signs & Weight: Vital Signs (12 hours) Temp Pulse BP Pulse Ox 11/20/19 08:30 69 148/74 H 11/20/19 08:29 72 147/55 H 11/20/19 07:14 97 11/20/19 07:00 98.3 F 11/20/19 04:00 98.1 F 11/20/19 00:00 97.9 F Weight Weight 169 lb 14.4 oz Most Recent Monitor Data Heart Rate from ECG 73 NIBP 154/68 NIBP BP-Mean 96 Respiration from ECG 2 SpO2 98 I&O: 11/19/19 11/20/19 11/21/19 06:59 06:59 06:59 Intake Total 4046 4258 60 Output Total 1540 1810 665 Balance 2503 6718 -814 Result Diagrams: 11/20/19 03:25 11/20/19 03:25 Additional Labs: Accuchecks 11/20/19 11/19/19 11/19/19 05:28 20:51 16:00 POC Glucose 136 H 133 H 105 Hospitalist ROS - Medication Medications: Active Medications Generic Name Dose Route Start Last Admin Trade Name Freq PRN Reason Stop Dose Admin Hydrocodone Bitart/Acetaminophen 2 tab 11/14/19 09:10 11/18/19 14:13 [place] 5/325 PO 2 tab Q4H PRN Administration Moderate Pain (4-6) Atorvastatin Calcium 10 mg 11/14/19 21:00 11/19/19 20:49 Lipitor PO 10 mg HS SHAKIR Administration Brimonidine Tartrate 1 drop 11/14/19 09:00 11/20/19 08:28 Alphagan 0.2% Ophth Soln EA EYE 1 drop BID SHAKIR Administration Brinzolamide 1 drop 11/14/19 21:00 11/20/19 08:30 Azopt 1% Ophth Susp EA EYE 1 drop BID SHAKIR Administration Citalopram Hydrobromide 20 mg 11/15/19 09:00 11/20/19 08:30 Celexa PO 20 mg DAILY SHAKIR Administration Dexamethasone 4 mg 11/20/19 06:00 11/20/19 05:28 Decadron SLOW IVP 11/22/19 00:00 4 mg Q6HR SHAKIR Administration Enoxaparin Sodium 40 mg 11/19/19 21:00 11/19/19 20:49 Lovenox SC 40 mg 2100 SHAKIR Administration Hydralazine HCl 10 mg 11/18/19 12:35 11/19/19 05:10 Apresoline SLOW IVP 10 mg Q15MIN PRN Administration SBP greater than 140 Nicardipine HCl 50 mg/ Sodium 250 mls @ 0 mls/hr 11/19/19 00:30 11/20/19 02: 28 Chloride IVPB 250 mls INF SHAKIR Administration Protocol Titrate Sodium Chloride 1,000 mls @ 100 mls/hr 11/19/19 13:00 11/20/19 02:29 Normal Saline 0.9% IV 1,000 mls INF SHAKIR Administration Latanoprost 1 drop 11/14/19 21:00 11/19/19 20:50 Xalatan 0.005% Ophth Soln EA EYE 1 drop HS SHAKIR Administration Levetiracetam 500 mg 11/16/19 21:00 11/20/19 08:30 Keppra PO 500 mg BID SHAKIR Administration Levothyroxine Sodium 75 mcg 11/14/19 06:00 11/20/19 05:27 Synthroid PO 75 mcg 0600 SHAKIR Administration Lisinopril 5 mg 11/14/19 09:00 11/20/19 08:30 Zestril PO 5 mg DAILY SHAKIR Administration Morphine Sulfate 4 mg 11/14/19 09:08 11/19/19 14:38 Morphine SLOW IVP 4 mg Q4H PRN Administration Severe Pain (7-10) Ondansetron HCl 4 mg 11/14/19 09:09 11/19/19 16:08 Zofran IVP 4 mg Q6H PRN Administration Nausea/Vomiting Pantoprazole Sodium 40 mg 11/15/19 09:00 11/20/19 08:37 Protonix IVP 40 mg DAILY SHAKIR Administration Timolol Maleate 1 drop 11/14/19 09:00 11/20/19 08:29 Timoptic 0.5% Ophth Soln EA EYE 1 drop BID SHAKIR Administration - Exam General Appearance: NAD, awake alert Heart: RRR, no murmur, no gallops, no rubs, normal peripheral pulses Respiratory: CTAB, no wheezes, no rales, no ronchi, normal chest expansion, no tachypnea, normal percussion Gastrointestinal: soft, non-tender, non-distended, normal bowel sounds, no palpable masses, no hepatomegaly, no splenomegaly, no bruit Extremities: no edema Skin: normal turgor Neurological - other findings: Has to concentrate to move right side. Weak in RLE, mild deficit RUE. Psychiatric - other findings: Tearful. Hosp A/P (1) Brain mass Code(s): G93.89 - OTHER SPECIFIED DISORDERS OF BRAIN Status: Acute (2) HTN (hypertension) Code(s): I10 - ESSENTIAL (PRIMARY) HYPERTENSION Status: Acute (3) HLD (hyperlipidemia) Code(s): E78.5 - HYPERLIPIDEMIA, UNSPECIFIED Status: Acute (4) Glaucoma Code(s): H40.9 - UNSPECIFIED GLAUCOMA Status: Acute (5) Hypothyroidism Code(s): E03.9 - HYPOTHYROIDISM, UNSPECIFIED Status: Acute (6) Hiccups Code(s): R06.6 - HICCOUGH Status: Acute (7) Hyponatremia Code(s): E87.1 - HYPO-OSMOLALITY AND HYPONATREMIA Status: Acute - Plan Mass consistent with glioblastoma multiforme. Post-op day 2. Neurosurgery following. [place]. Free water restriction. Sodium low but stable on recheck. Decadron taper starting today. Continue home meds. Still on Cardene gtt. Will increase Lisinopril. Repeat CT looks better.
[2019-11-20] MEDS ORDERED: Lisinopril 5 MG TAB PO SCH (10:00)
--- NOTE | 2019-11-20 10:55 | PRG ---
DATE OF SERVICE: 11/20/2019 Mr. Mohr is postoperative day 2 from left parietal-occipital brain tumor resection. This was likely glioblastoma. Pathology remains pending. However, head CT is satisfactory both days and an ultrasound of the lower extremities is negative. We have started him on prophylactic Lovenox. He has been confused, however, with hyponatremia in the mid 120s. We have asked nephrology colleagues to assist. 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 Our colleague, Dr. Camilo, is also following along. We are beginning his Decadron taper, and I should note that while he is confused, this is likely a combination of his brain tumor surgery and hyponatremia. I should also note that he is delayed on the right side, but does move. We will continue to watch for in the ICU. Hopefully, we can get him to a regular room tomorrow when his confusion and sodium improved. Job ID: [id number]
--- NOTE | 2019-11-20 11:10 | OP ---
DATE OF PROCEDURE: 11/18/2019 LOCATION: OR 12. PAIN MANAGEMENT NURSE PRACTITIONER: Adilia Bunn PA-C PREPROCEDURE DIAGNOSES: 1. Left contrast-enhancing cystic parieto-occipital mass, likely glioblastoma. 2. Neurologic decline. POSTPROCEDURE DIAGNOSES: 1. Left contrast-enhancing cystic parieto-occipital mass, likely glioblastoma. 2. Neurologic decline. PROCEDURES PERFORMED: 1. Left parietal stereotactic craniotomy for tumor resection. 2. Use of operative microscope for microdissection. 3. Stereotactic guidance. DESCRIPTION OF PROCEDURE: After informed consent was obtained from the patient, the patient was brought to the OR. Proper patient, pause, and identification were carried out. He was placed under excellent general endotracheal anesthesia and positioned supine on the OR table. We then put him in the right lateral decubitus position and bolstered him. Villanueva Ciarra was secured to his skull and the stereotactic frame was attached as well to the Villanueva and registered with excellent accuracy. We then jay out a linear incision over the superior parietal lobule and this region was sterilely cleansed, prepared, and draped. A small amount of hair was clipped. This area was sterilely cleansed, prepared, and draped. Proper patient, pause, and identification were carried out. The wound was then opened with a combination of sharp, monopolar, and blunt dissection and a craniotomy fashioned with gross and stereotactic localization. I identified a large bridging vein and this was preserved. We then entered the cortex in the superior parietal lobule region and then proceeded with gross microscopic and stereotactic localization. We performed a gross total resection of the enhancing mass. 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 Hemostasis was maximized. The wound was copiously irrigated and closed in following dural reapproximation. The craniotomy flap was re-fixated to the skull with titanium plates and screws and the scalp closed in anatomic layers following sprinkling of vancomycin powder. The patient then emerged from anesthesia. Job ID: [id number]
--- NOTE | 2019-11-20 11:13 | PDOC.PALCO ---
Palliative Care Consult - Consult Details Requesting Physician: Dr Camilo Reason for Consult: coping issues Family Members Present: None - Pertinent HPI New brain mass with surgical intervention 11/18 that confirmed glioblastoma multiforme. Doing well post operatively, awake, alert with slight delay in verbal response but free of confusion at time of assessment. - Social History Alcohol Use: none Drug Use History: none Living Situation: - Medications MAR Reviewed: Yes - Allergies Allergies/Adverse Reactions: Allergies Allergy/AdvReac Type Severity Reaction Status Date / Time No Known Drug Allergies Allergy Verified 11/13/19 23:24 - Subjective Awake, tearful, no physical complaints other that weakness to right arm and lower extremity. - ROS Constitutional: alert, weakness, other Eyes: other (Denies visual changes) Respiratory: other (Negative for cough or shortness of breath) Cardiology: other (Negative for chest pain, palpitation,) Musculoskeletal: other (negative for pain to extremities) Neurological: other (weakness to right extremities) Skin: other (negative for rash, lesions to skin ) Psychological: other (tearful) - Objective Vital Signs: Vital Signs - Most Recent Temp Pulse Resp BP Pulse Ox 98.3 F 67 19 154/69 H 97 11/20/19 07:00 11/20/19 09:55 11/18/19 04:09 11/20/19 09:55 11/20/19 07:14 Palliative Performance Scale: 30 - Physical Exam HEENT: EOMI, moist MMs, sclera anicteric Respiratory: clear to auscultation bilateral, unlabored breathing Cardiovascular: RRR Gastrointestinal: non-tender, no distention, positive bowel sounds Musculoskeletal: pulses present Deviation from normal: moves extremities, weakness to right Skin: cap refill <2 seconds Psychiatric: A&O x 3 Deviation from normal: emotional, tearful - Problem List (1) Palliative care encounter Code(s): Z51.5 - ENCOUNTER FOR PALLIATIVE CARE Current Visit: Yes Status: Acute (2) Glioblastoma multiforme Code(s): C71.9 - MALIGNANT NEOPLASM OF BRAIN, UNSPECIFIED Current Visit: Yes Status: Acute (3) Brain mass Code(s): G93.89 - OTHER SPECIFIED DISORDERS OF BRAIN Current Visit: Yes Status: Acute - Plan/Recommendations Plan: Initial conversation with patient. General life review, states most important to him is his marriage to his for 52 years, met when they were kids. Tearful, states he is overwhelmed with new diagnosis, but so grateful for his good life. Therapeutic listening to provide emotional support as patient navigates new diagnosis of glioblastoma multiforme. [45] minutes spent on this encounter with >50% of the time in counseling and coordination of care. Thank you for this very appropriate consult.
--- NOTE | 2019-11-20 11:42 | CON ---
DATE OF CONSULTATION: 11/20/2019 REASON FOR CONSULTATION: ICU management. HISTORY OF PRESENT ILLNESS: Mr. Mohr is a 74-year-old who was admitted to the Hospitalist several days ago with some visual disturbances. He had a glioblastoma multiform. The patient had resection of the tumor the day before yesterday. He is currently in the CCU recuperating. PAST MEDICAL HISTORY: 1. Hypertension. 2. Hypothyroidism. PAST SURGICAL HISTORY: 1. Prostatectomy. 2. Tonsillectomy. 3. Vasectomy. SOCIAL HISTORY: The patient is a never smoker. Very occasionally drinks alcohol. REVIEW OF SYSTEMS: Otherwise negative. PHYSICAL EXAMINATION: VITAL SIGNS: Temperature 98.3, pulse 71, blood pressure 137/63. He has an A-line in place in the right arm. HEENT: Unremarkable. NECK: No adenopathy or JVD. LUNGS: Clear anteriorly. CARDIAC: S1 and S2, regular without audible murmur. ABDOMEN: Soft. EXTREMITIES: No edema. NEUROLOGIC: He is weak on his right leg. LABORATORY DATA: White blood cell count 11.8, hematocrit 44, and platelet count 147. Sodium 127, potassium 4, chloride 99, CO2 of 20, BUN 40, creatinine 0.7, and glucose 143. ASSESSMENT: The patient is hyponatremic after brain tumor resection. Appears to be retaining fluid and might need diuresis when felt appropriate by the Neurosurgical Team. For the time being, he is being given normal saline. He is stable. We will go ahead and have his art-line pulled. We will be happy to follow with you while he is in the ICU. Job ID: [id number]
[2019-11-20] MEDS: hydrALAZINE 20 MG/ML VIAL SLOW IVP PRN (16:07)
[2019-11-20 16:29] LABS: Bilirubin Negative (Negative); Blood, Urine Negative (Negative); Clarity Clear (Clear); Glucose, Urine (Dipstick) Normal (Negative); Leukocyte Negative Leu/uL (Negative); Nitrite Negative (Negative); Protein, Urine (Dipstick) Negative (Neg-Trace); Urobilinogen Normal mg/dL (Less than 2)
--- NOTE | 2019-11-20 16:42 | CON ---
DATE OF CONSULTATION: 11/20/2019 CONSULTING PHYSICIAN: Dr. Rubio. REASON FOR CONSULTATION: Hyponatremia. REASON FOR ADMISSION: Visual disturbance. HISTORY OF PRESENT ILLNESS: This is a 74-year-old male with a history of hypertension, hypothyroidism, came to the hospital with right-sided weakness and visual disturbances, was found to have brain mass and was being evaluated. He was found to have low sodium around 125, which improved to 127. He is currently on IV fluids. Nephrology consulted for hyponatremia. The patient is still having some numbness, but no nausea, no chest pain, no palpitation. PAST MEDICAL HISTORY: Positive for hypertension, hypothyroidism. PAST SURGICAL HISTORY: Prostatectomy, tonsillectomy, vasectomy. HOME MEDICATION: Reviewed. ALLERGIES: NO KNOWN DRUG ALLERGIES. SOCIAL HISTORY: No smoking, alcohol, or illicit drug abuse. FAMILY HISTORY: No history of kidney disease. REVIEW OF SYSTEMS: CONSTITUTIONAL: Negative for weight loss or gain, ability to conduct usual activities. SKIN: Negative for rash, itching. EYES: Negative for double vision, pain. ENT/MOUTH: Negative for nose bleeding, neck stiffness, pain, tenderness. CARDIOVASCULAR: Negative for palpitations, dyspnea on exertion, orthopnea. RESPIRATORY: Negative for shortness of breath, wheezing, cough, hemoptysis, fever or night sweats. GASTROINTESTINAL: Negative for poor appetite, abdominal pain, heartburn, nausea, vomiting, constipation, or diarrhea. GENITOURINARY: Negative for urgency, frequency, dysuria, nocturia. MUSCULOSKELETAL: Negative for pain, swelling. NEUROLOGIC/PSYCHIATRIC: Negative for anxiety, depression. ALLERGY/IMMUNOLOGIC: Negative for skin rash, bleeding tendency. PHYSICAL EXAMINATION: GENERAL: This is a well-built male, in no apparent distress. VITAL SIGNS: Temperature 98.3, pulse 67, respiratory rate 16, blood pressure 130/60. HEENT: Atraumatic, normocephalic. Oral mucosa is moist. NECK: Supple. CV: S1, S2. Rate and rhythm regular. RESPIRATORY: Clear. GASTROINTESTINAL: Abdomen is soft. MUSCULOSKELETAL: 1+ edema. DERMATOLOGIC: No skin rash. NEUROLOGICAL: Alert and awake. PSYCHIATRIC: Mood and affect are normal. LABORATORY DATA: Sodium is 127, potassium is 4.0. Serum osmolality is 288, urine osmolality is 236, urine sodium is less than 20. ASSESSMENT AND PLAN: 1. Hyponatremia. Urine studies suggest hypovolemia. Agree with IV fluids and we will monitor. 2. Limit free water intake. 3. Edema, controlled. 4. History of hypertension. 5. Hypochloremia. Plan is to continue to monitor sodium level. Continue IV fluids and monitor sodium level. We will follow. Thank you for the consult. Job ID: [id number]
[2019-11-20 17:45] LABS: Creatinine, Urine 35.55 mg/dL (63-166); Protein, Urine Random Quant Less than 10 mg/dL (1-14)
[2019-11-20] MEDS: Enoxaparin Sodium 40 MG/0.4 ML SYRINGE SC SCH (21:12)
[2019-11-20] MEDS: Atorvastatin Calcium 10 MG TAB PO SCH (21:12)
[2019-11-20] MEDS: Latanoprost 0.005% Ophth Soln 2.5 ml Bottle EA EYE SCH (21:15)
[2019-11-21 04:51] LABS: Cardiac Risk 2.1 (Less than 4.5)
[2019-11-21] MEDS: Levothyroxine Sodium 75 MCG TAB PO SCH (05:42)
[2019-11-21] MEDS: Dexamethasone 4 mg/ml Vial SLOW IVP SCH ×3 (05:42→18:42)
[2019-11-21] MEDS: Brimonidine Tartrate 0.2% Ophth Soln 5 ml Bottle EA EYE SCH ×2 (08:15→20:20)
[2019-11-21] MEDS: Brinzolamide 1% Ophth SUSP 10 ml Bottle EA EYE SCH ×2 (08:16→20:20)
[2019-11-21] MEDS: Lisinopril 10 MG TAB PO SCH (08:17)
[2019-11-21] MEDS: levETIRAcetam 500 MG TAB PO SCH ×2 (08:17→20:21)
[2019-11-21] MEDS: Citalopram 20 MG TAB PO SCH (08:17)
[2019-11-21] MEDS: Pantoprazole 40 MG VIAL IVP SCH (08:18)
[2019-11-21] MEDS: Timolol 0.5% Ophth Soln 5 ml Bottle EA EYE SCH ×2 (08:18→20:21)
--- NOTE | 2019-11-21 08:51 | PRG ---
DATE OF SERVICE: 11/21/2019 SUBJECTIVE: The patient is tearful, but doing well. OBJECTIVE: VITAL SIGNS: On exam, temperature is 98.6, pulse 60, blood pressure 144/71, and O2 saturation 97%. HEENT: Unremarkable except for the scar on his occipital-parietal portion of left brain. NECK: No adenopathy or JVD. CHEST: Clear. CARDIAC: S1 and S2. Regular. ABDOMEN: Soft. EXTREMITIES: No edema. LABORATORY DATA: Labs from today are pending. ASSESSMENT: 1. 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 2. Hyponatremia. PLAN: He is continued on normal saline in attempts to correct this. Nephrology is assisting us in treatment of the hyponatremia. He can be transferred to the floor when okay with Neurosurgery. Pulmonary will sign off if the patient transferred to the floor. Job ID: [id number]
[2019-11-21 09:49] LABS: Anion Gap 11 mmol/L (10-20); BUN (Urea Nitrogen) 30 mg/dL (8.4-25.7); Calc. Creatinine Clearance 93 mL/min (70-130); Calcium 7.9 mg/dL (7.8-10.44); Carbon Dioxide 24 mmol/L (23-31); Chloride 104 mmol/L (98-107); Estimated GFR-MDRD Greater than 90; Glucose 180 mg/dL (83-110); Potassium 4.4 mmol/L (3.5-5.1); Sodium 135 mmol/L (136-145)
--- NOTE | 2019-11-21 10:11 | PRG ---
DATE OF SERVICE: 11/21/2019 Mr. Mohr is a bit better in regard to his confusion. He appears to be a bit more lucid. He still has delay in neglect on the right upper and lower extremities, but does move these, but does have weakness. His wound is healing well. His Decadron has been tapered. His sodium remains 127. Our nephrology team is following along. We will transfer him to the floor as his pathology is consistent with glioblastoma. I let the family know. Job ID: [id number]
--- NOTE | 2019-11-21 14:15 | PDOC.HOSPP ---
- Subjective Subjective: Doing well. Says the right side feels a little "numb" and just not normal. - Objective Vital Signs & Weight: Vital Signs (12 hours) Temp Pulse Resp BP BP Pulse Ox 11/21/19 11:00 97 11/21/19 10:55 97.8 F 74 18 121/88 97 11/21/19 08:18 76 134/74 11/21/19 08:17 134/74 11/21/19 07:41 97 11/21/19 07:00 98.6 F 11/21/19 04:00 97.8 F Weight Weight 182 lb 12.211 oz Most Recent Monitor Data Heart Rate from ECG 75 NIBP 163/93 NIBP BP-Mean 116 Respiration from ECG 20 SpO2 99 I&O: 11/20/19 11/21/19 11/22/19 06:59 06:59 06:59 Intake Total 4258 3101 540 Output Total 1810 3820 830 Balance 2448 -719 -290 Result Diagrams: 11/20/19 03:25 11/21/19 09:20 Additional Labs: Accuchecks 11/21/19 06:08 POC Glucose 122 H Hospitalist ROS - Medication Medications: Active Medications Generic Name Dose Route Start Last Admin Trade Name Freq PRN Reason Stop Dose Admin Hydrocodone Bitart/Acetaminophen 2 tab 11/14/19 09:10 11/18/19 14:13 [place] 5/325 PO 2 tab Q4H PRN Administration Moderate Pain (4-6) Atorvastatin Calcium 10 mg 11/14/19 21:00 11/20/19 21:12 Lipitor PO 10 mg HS SHAKIR Administration Brimonidine Tartrate 1 drop 11/14/19 09:00 11/21/19 08:15 Alphagan 0.2% Ophth Soln EA EYE 1 drop BID SHAKIR Administration Brinzolamide 1 drop 11/14/19 21:00 11/21/19 08:16 Azopt 1% Ophth Susp EA EYE 1 drop BID SHAKIR Administration Citalopram Hydrobromide 20 mg 11/15/19 09:00 11/21/19 08:17 Celexa PO 20 mg DAILY SHAKIR Administration Dexamethasone 4 mg 11/20/19 06:00 11/21/19 11:15 Decadron SLOW IVP 11/22/19 00:00 4 mg Q6HR SHAKIR Administration Enoxaparin Sodium 40 mg 11/19/19 21:00 11/20/19 21:12 Lovenox SC 40 mg 2100 SHAKIR Administration Hydralazine HCl 10 mg 11/18/19 12:35 11/20/19 16:07 Apresoline SLOW IVP 10 mg Q15MIN PRN Administration SBP greater than 140 Nicardipine HCl 50 mg/ Sodium 250 mls @ 0 mls/hr 11/19/19 00:30 11/20/19 02: 28 Chloride IVPB 250 mls INF SHAKIR Administration Protocol Titrate Latanoprost 1 drop 11/14/19 21:00 11/20/19 21:15 Xalatan 0.005% Ophth Soln EA EYE 1 drop HS SHAKIR Administration Levetiracetam 500 mg 11/16/19 21:00 11/21/19 08:17 Keppra PO 500 mg BID SHAKIR Administration Levothyroxine Sodium 75 mcg 11/14/19 06:00 11/21/19 05:42 Synthroid PO 75 mcg 0600 SHAKIR Administration Lisinopril 10 mg 11/21/19 09:00 11/21/19 08:17 Zestril PO 10 mg DAILY SHAKIR Administration Morphine Sulfate 4 mg 11/14/19 09:08 11/19/19 14:38 Morphine SLOW IVP 4 mg Q4H PRN Administration Severe Pain (7-10) Ondansetron HCl 4 mg 11/14/19 09:09 11/19/19 16:08 Zofran IVP 4 mg Q6H PRN Administration Nausea/Vomiting Pantoprazole Sodium 40 mg 11/15/19 09:00 11/21/19 08:18 Protonix IVP 40 mg DAILY SHAKIR Administration Timolol Maleate 1 drop 11/14/19 09:00 11/21/19 08:18 Timoptic 0.5% Ophth Soln EA EYE 1 drop BID SHAKIR Administration - Exam General Appearance: NAD, awake alert ENT - other findings: Scalp incision C and D. Looks healthy. Heart: RRR, no murmur, no gallops, no rubs, normal peripheral pulses Respiratory: CTAB, no wheezes, no rales, no ronchi, normal chest expansion, no tachypnea, normal percussion Gastrointestinal: soft, non-tender, non-distended, normal bowel sounds, no palpable masses, no hepatomegaly, no splenomegaly, no bruit Extremities: no cyanosis, no clubbing, no edema Skin: normal turgor Neurological - other findings: Mild right hemiparesis. Musculoskeletal: normal tone, normal strength, no muscle wasting Psychiatric: normal affect, normal behavior, A&O x 3 Hosp A/P (1) Glioblastoma multiforme Code(s): C71.9 - MALIGNANT NEOPLASM OF BRAIN, UNSPECIFIED Status: Acute (2) HTN (hypertension) Code(s): I10 - ESSENTIAL (PRIMARY) HYPERTENSION Status: Chronic (3) HLD (hyperlipidemia) Code(s): E78.5 - HYPERLIPIDEMIA, UNSPECIFIED Status: Chronic (4) Glaucoma Code(s): H40.9 - UNSPECIFIED GLAUCOMA Status: Chronic (5) Hypothyroidism Code(s): E03.9 - HYPOTHYROIDISM, UNSPECIFIED Status: Chronic (6) Hiccups Code(s): R06.6 - HICCOUGH Status: Resolved (7) Hyponatremia Code(s): E87.1 - HYPO-OSMOLALITY AND HYPONATREMIA Status: Acute - Plan Mass consistent with glioblastoma multiforme on path. Post-op day 2. Neurosurgery following. Keppra. Free water restriction. Sodium improved. Decadron taper started Continue home meds. Off Cardene and moved to surgical floor. Continue rehab.
--- NOTE | 2019-11-21 16:41 | PRG ---
DATE OF SERVICE: 11/21/2019 SUBJECTIVE: Patient was seen and examined at bedside and overnight events noted. Patient denies any shortness of breath or chest pain or palpitation. No history of nausea or vomiting or diarrhea or fever or chills or cramps. OBJECTIVE: GENERAL: This is a well-built male, in no apparent distress. VITAL SIGNS: Temperature 98.6. Heart rate 60. Respiratory rate 16. Blood pressure 165/90. HEENT: Atraumatic, normocephalic. Oral mucosa is moist. NECK: Supple. CARDIOVASCULAR: S1, S2 heard. Rate and rhythm regular. RESPIRATORY: Clear to auscultation. GASTROINTESTINAL: Abdomen is soft. MUSCULOSKELETAL: No tenderness. No edema. DERMATOLOGIC: No skin rash. NEUROLOGIC: Alert and awake and oriented x3. No focal neurologic deficits. Moving all the extremities. PSYCHIATRIC: Mood and affect normal. LABORATORY DATA: Sodium is 135, potassium 4.4, and creatinine is 0.8. ASSESSMENT AND PLAN: 1. Hyponatremia, much better. We will stop IV fluids. 2. Edema, controlled. 3. Hypertension. 4. Hypochloremia. Sodium level is much better. Stop IV fluids and we will follow. Job ID: [id number]
[2019-11-21] MEDS: hydrALAZINE 20 MG/ML VIAL SLOW IVP PRN (18:42)
[2019-11-21] MEDS: Latanoprost 0.005% Ophth Soln 2.5 ml Bottle EA EYE SCH (20:19)
[2019-11-21] MEDS: Enoxaparin Sodium 40 MG/0.4 ML SYRINGE SC SCH (20:21)
[2019-11-21] MEDS: Atorvastatin Calcium 10 MG TAB PO SCH (20:22)
[2019-11-22] MEDS: Dexamethasone 4 mg/ml Vial SLOW IVP SCH ×4 (00:15→17:24)
[2019-11-22] MEDS: Levothyroxine Sodium 75 MCG TAB PO SCH (05:12)
[2019-11-22 06:30] LABS: Anion Gap 9 mmol/L (10-20); BUN (Urea Nitrogen) 25 mg/dL (8.4-25.7); Calc. Creatinine Clearance 112 mL/min (70-130); Calcium 7.8 mg/dL (7.8-10.44); Carbon Dioxide 26 mmol/L (23-31); Chloride 103 mmol/L (98-107); Estimated GFR-MDRD Greater than 90; Glucose 112 mg/dL (83-110); Potassium 4.6 mmol/L (3.5-5.1); Sodium 133 mmol/L (136-145)
[2019-11-22] MEDS: Lisinopril 10 MG TAB PO SCH (09:07)
[2019-11-22] MEDS: Citalopram 20 MG TAB PO SCH (09:07)
[2019-11-22] MEDS: Pantoprazole 40 MG VIAL IVP SCH (09:07)
[2019-11-22] MEDS: levETIRAcetam 500 MG TAB PO SCH ×2 (09:07→20:57)
[2019-11-22] MEDS: Brinzolamide 1% Ophth SUSP 10 ml Bottle EA EYE SCH ×2 (09:08→20:58)
[2019-11-22] MEDS: Brimonidine Tartrate 0.2% Ophth Soln 5 ml Bottle EA EYE SCH ×2 (09:08→20:58)
[2019-11-22] MEDS: Timolol 0.5% Ophth Soln 5 ml Bottle EA EYE SCH ×2 (09:08→20:58)
[2019-11-22] MEDS ORDERED: Amlodipine 5 MG TAB PO SCH (14:00)
--- NOTE | 2019-11-22 14:02 | PDOC.HOSPP ---
- Subjective Encounter Date: 11/22/19 (f/u GBM) Encounter Time: 14:00 Subjective: Pt without complaints today. Notes more arm movement today, unable to move his right leg - Objective Vital Signs & Weight: Vital Signs (12 hours) Temp Pulse Resp BP BP Pulse Ox 11/22/19 12:10 97.8 F 63 16 154/81 H 96 11/22/19 09:08 62 154/82 H 97 11/22/19 09:07 154/82 H 11/22/19 07:47 98.2 F 62 16 154/82 H 97 11/22/19 05:17 98.0 F 65 16 167/89 H 96 Weight Weight 182 lb 12.211 oz Most Recent Monitor Data Heart Rate from ECG 75 NIBP 163/93 NIBP BP-Mean 116 Respiration from ECG 20 SpO2 99 I&O: 11/21/19 11/22/19 11/23/19 06:59 06:59 06:59 Intake Total 3101 1390 Output Total 3820 2330 Balance -719 -294 Result Diagrams: 11/20/19 03:25 11/22/19 05:46 Additional Labs: Accuchecks 11/22/19 11/22/19 11/21/19 12:17 05:34 21:34 POC Glucose 99 105 144 H 11/21/19 11/21/19 15:27 11:17 POC Glucose 141 H 210 H Hospitalist ROS - Medication Medications: Active Medications Generic Name Dose Route Start Last Admin Trade Name Freq PRN Reason Stop Dose Admin Hydrocodone Bitart/Acetaminophen 2 tab 11/14/19 09:10 11/18/19 14:13 [place] 5/325 PO 2 tab Q4H PRN Administration Moderate Pain (4-6) Atorvastatin Calcium 10 mg 11/14/19 21:00 11/21/19 20:22 Lipitor PO 10 mg HS SHAKIR Administration Brimonidine Tartrate 1 drop 11/14/19 09:00 11/22/19 09:08 Alphagan 0.2% Ophth Soln EA EYE 1 drop BID SHAKIR Administration Brinzolamide 1 drop 11/14/19 21:00 11/22/19 09:08 Azopt 1% Ophth Susp EA EYE 1 drop BID SHAKIR Administration Citalopram Hydrobromide 20 mg 11/15/19 09:00 11/22/19 09:07 Celexa PO 20 mg DAILY SHAKIR Administration Dexamethasone 3 mg 11/22/19 06:00 11/22/19 11:10 Decadron SLOW IVP 11/24/19 00:00 3 mg Q6HR SHAKIR Administration Enoxaparin Sodium 40 mg 11/19/19 21:00 11/21/19 20:21 Lovenox SC 40 mg 2100 SHAKIR Administration Hydralazine HCl 10 mg 11/18/19 12:35 11/21/19 18:42 Apresoline SLOW IVP 10 mg Q15MIN PRN Administration SBP greater than 140 Nicardipine HCl 50 mg/ Sodium 250 mls @ 0 mls/hr 11/19/19 00:30 11/20/19 02: 28 Chloride IVPB 250 mls INF SHAKIR Administration Protocol Titrate Latanoprost 1 drop 11/14/19 21:00 11/21/19 20:19 Xalatan 0.005% Ophth Soln EA EYE 1 drop HS SHAKIR Administration Levetiracetam 500 mg 11/16/19 21:00 11/22/19 09:07 Keppra PO 500 mg BID SHAKIR Administration Levothyroxine Sodium 75 mcg 11/14/19 06:00 11/22/19 05:12 Synthroid PO 75 mcg 0600 SHAKIR Administration Lisinopril 10 mg 11/21/19 09:00 11/22/19 09:07 Zestril PO 10 mg DAILY SHAKIR Administration Morphine Sulfate 4 mg 11/14/19 09:08 11/19/19 14:38 Morphine SLOW IVP 4 mg Q4H PRN Administration Severe Pain (7-10) Ondansetron HCl 4 mg 11/14/19 09:09 11/19/19 16:08 Zofran IVP 4 mg Q6H PRN Administration Nausea/Vomiting Pantoprazole Sodium 40 mg 11/15/19 09:00 11/22/19 09:07 Protonix IVP 40 mg DAILY SHAKIR Administration Sodium Chloride 10 ml 11/13/19 22:32 11/22/19 09:07 Flush - Normal Saline IVF 10 ml PRN PRN Administration Saline Flush Timolol Maleate 1 drop 11/14/19 09:00 11/22/19 09:08 Timoptic 0.5% Ophth Soln EA EYE 1 drop BID SHAKIR Administration - Exam General Appearance: NAD Heart: RRR, no murmur Respiratory: CTAB, no wheezes, no rales, no ronchi Gastrointestinal: soft, non-tender, non-distended, normal bowel sounds Extremities: no cyanosis, no clubbing, no edema Psychiatric - other findings: tearful at times with conversation on his progress Hosp A/P (1) Glioblastoma multiforme Code(s): C71.9 - MALIGNANT NEOPLASM OF BRAIN, UNSPECIFIED Status: Acute (2) Glaucoma Code(s): H40.9 - UNSPECIFIED GLAUCOMA Status: Chronic (3) HLD (hyperlipidemia) Code(s): E78.5 - HYPERLIPIDEMIA, UNSPECIFIED Status: Chronic (4) HTN (hypertension) Code(s): I10 - ESSENTIAL (PRIMARY) HYPERTENSION Status: Chronic (5) Hypothyroidism Code(s): E03.9 - HYPOTHYROIDISM, UNSPECIFIED Status: Chronic (6) Hyponatremia Code(s): E87.1 - HYPO-OSMOLALITY AND HYPONATREMIA Status: Acute - Plan HTN - not at goal of SBP 100-140 - start amlodipine 5 mg now and daily - consider adjusting to 5 mg bid - cont lisinopril 10 mg daily GBM s/p resection - steroids per NS - cont therapy Hyponatremia - stable, appreciate Nephrology consult glaucoma - continue current meds HLP - cont statin DVT prophy -scd's gi prophy - on IV PPI due to steroids, continue this for now reviewed plan of care with patient/family, no questions or further needs at end of eval
--- NOTE | 2019-11-22 14:48 | PRG ---
DATE OF SERVICE: 11/22/2019 SUBJECTIVE: Patient was seen and examined at bedside and overnight events noted. Patient denies any shortness of breath or chest pain or palpitation. No history of nausea or vomiting or diarrhea or fever or chills or cramps. OBJECTIVE: GENERAL: This is a well-built male, in no apparent distress. VITAL SIGNS: Temperature 97.8. Heart rate 63. Respiratory rate 16. Blood pressure 154/81. HEENT: Atraumatic, normocephalic. Oral mucosa is moist NECK: Supple. CARDIOVASCULAR: S1, S2 heard. Rate and rhythm regular. RESPIRATORY: Clear to auscultation. GASTROINTESTINAL: Abdomen is soft. MUSCULOSKELETAL: No tenderness. No edema. DERMATOLOGIC: No skin rash. NEUROLOGIC: Alert and awake and oriented X3. No focal neurologic deficits. Moving all the extremities. PSYCHIATRIC: Mood and affect normal. LABORATORY DATA: Sodium is 133. ASSESSMENT AND PLAN: 1. Hyponatremia, stable. Limit fluid intake. We will monitor. 2. Edema, controlled. 3. History of hypertension. 4. Hypochloremia. Limit free water intake, and we will follow. Job ID: [id number]
--- NOTE | 2019-11-22 15:05 | PRG ---
DATE OF SERVICE: 11/22/2019 I saw Mr. Mohr in his hospital room this afternoon. He is resting comfortably as I entered the room. He did not have any complaints. Other than , it is difficult for him to move the right side of his body. Among the electronically recorded vital signs, I do not see any fevers over the last 24 hours. Blood pressures have been in the 130s to 170s. 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 The incision is healing well. Histopathology results are finalized and the diagnosis is glioblastoma. I had discussion with Mr. Mohr about chemoradiotherapy for his glioblastoma. He can start once he has had some rehabilitation. Dr. Rubio was planning on a transfer to inpatient rehabilitation over the weekend or on Sunday. Until then , we will keep the blood pressure under control and make sure he is making neurological progress. Job ID: [id number] MTDD
[2019-11-22] MEDS: hydrALAZINE 20 MG/ML VIAL SLOW IVP PRN ×2 (15:33→17:25)
[2019-11-22] MEDS: Enoxaparin Sodium 40 MG/0.4 ML SYRINGE SC SCH (20:57)
[2019-11-22] MEDS: Atorvastatin Calcium 10 MG TAB PO SCH (20:57)
[2019-11-22] MEDS: Latanoprost 0.005% Ophth Soln 2.5 ml Bottle EA EYE SCH (20:58)
[2019-11-22] MEDS: Amlodipine 5 MG TAB PO SCH (21:00)
[2019-11-23] MEDS: Dexamethasone 4 mg/ml Vial SLOW IVP SCH ×4 (00:09→17:58)
[2019-11-23] MEDS: Levothyroxine Sodium 75 MCG TAB PO SCH (05:44)
[2019-11-23 05:47] LABS: #Lymphocytes 0.5 thou/uL (1.20-3.40); #Monocytes 0.8 thou/uL (0.11-0.59); #Neutrophils 8.5 thou/uL (1.40-6.50); %Eosinophils 0.1 % (0.0-10.0); %Lymphocytes 5.3 % (21.0-51.0); %Monocytes 8.2 % (0.0-10.0); %Neutrophils 86.5 % (42.0-75.0); Hemoglobin 15.7 g/dL (14.0-18.0); Mean Corpuscular HGB CONC 33.6 g/dL (32.0-36.0); Mean Corpuscular Hemoglobin 31.9 pg (27.0-31.0); Mean Corpuscular Volume 95.1 fL (78.0-98.0); Mean Platelet Volume 10.5 fL (7.4-10.4); Platelet Count 143 thou/uL (130-400); RBC Distribution Width 12.1 % (11.5-14.5); Red Blood Cell (RBC) Count 4.93 mill/uL (4.70-6.10); White Blood Cell (WBC) Count 9.9 thou/uL (4.8-10.8)
[2019-11-23 06:03] LABS: Anion Gap 9 mmol/L (10-20); BUN (Urea Nitrogen) 23 mg/dL (8.4-25.7); Calc. Creatinine Clearance 107 mL/min (70-130); Calcium 7.9 mg/dL (7.8-10.44); Carbon Dioxide 26 mmol/L (23-31); Chloride 102 mmol/L (98-107); Estimated GFR-MDRD Greater than 90; Glucose 99 mg/dL (83-110); Potassium 4.9 mmol/L (3.5-5.1); Sodium 132 mmol/L (136-145)
[2019-11-23] MEDS: Amlodipine 5 MG TAB PO SCH ×2 (08:57→20:07)
[2019-11-23] MEDS: levETIRAcetam 500 MG TAB PO SCH ×2 (08:57→20:07)
[2019-11-23] MEDS: Lisinopril 20 MG TAB PO SCH (08:57)
[2019-11-23] MEDS: Citalopram 20 MG TAB PO SCH (08:57)
[2019-11-23] MEDS: Brimonidine Tartrate 0.2% Ophth Soln 5 ml Bottle EA EYE SCH ×2 (08:59→20:08)
[2019-11-23] MEDS: Pantoprazole 40 MG VIAL IVP SCH (08:59)
[2019-11-23] MEDS ORDERED: Amlodipine 5 MG TAB PO SCH (09:00)
[2019-11-23] MEDS: Brinzolamide 1% Ophth SUSP 10 ml Bottle EA EYE SCH ×2 (09:01→20:07)
[2019-11-23] MEDS: Timolol 0.5% Ophth Soln 5 ml Bottle EA EYE SCH ×2 (09:04→20:08)
[2019-11-23] MEDS ORDERED: Fleet Enema 133 ML BOT PR PRN (09:34)
--- NOTE | 2019-11-23 09:38 | PDOC.HOSPP ---
- Subjective Encounter Date: 11/23/19 (f/u HTN) Encounter Time: 09:36 Subjective: Pt is without complaints today, no overnight events noted. Last BM noted on , and son reports pt takes metamucil at home. - Objective Vital Signs & Weight: Vital Signs (12 hours) Temp Pulse Resp BP BP Pulse Ox 11/23/19 08:57 74 167/94 H 11/23/19 07:15 98.3 F 74 16 167/94 H 99 11/23/19 05:00 98.6 F 57 L 16 155/80 H 97 11/23/19 00:10 99.0 F 63 16 149/78 H 96 11/22/19 21:51 97.9 F 76 16 156/79 H 98 Weight Weight 182 lb 12.211 oz Most Recent Monitor Data Heart Rate from ECG 75 NIBP 163/93 NIBP BP-Mean 116 Respiration from ECG 20 SpO2 99 I&O: 11/22/19 11/23/19 11/24/19 06:59 06:59 06:59 Intake Total 1390 1500 Output Total 2330 3200 Balance -940 -1700 Result Diagrams: 11/23/19 05:21 11/23/19 05:21 Additional Labs: Accuchecks 11/22/19 11/22/19 11/22/19 21:56 16:29 12:17 POC Glucose 145 H 148 H 99 Hospitalist ROS - Medication Medications: Active Medications Generic Name Dose Route Start Last Admin Trade Name Freq PRN Reason Stop Dose Admin Hydrocodone Bitart/Acetaminophen 2 tab 11/14/19 09:10 11/18/19 14:13 [place] 5/325 PO 2 tab Q4H PRN Administration Moderate Pain (4-6) Amlodipine Besylate 5 mg 11/22/19 21:00 11/23/19 08:57 Norvasc PO 5 mg BID SHAKIR Administration Atorvastatin Calcium 10 mg 11/14/19 21:00 11/22/19 20:57 Lipitor PO 10 mg HS SHAKIR Administration Brimonidine Tartrate 1 drop 11/14/19 09:00 11/23/19 08:59 Alphagan 0.2% Ophth Soln EA EYE 1 drop BID SHAKIR Administration Brinzolamide 1 drop 11/14/19 21:00 11/23/19 09:01 Azopt 1% Ophth Susp EA EYE 1 drop BID SHAKIR Administration Citalopram Hydrobromide 20 mg 11/15/19 09:00 11/23/19 08:57 Celexa PO 20 mg DAILY SHAKIR Administration Dexamethasone 3 mg 11/22/19 06:00 11/23/19 05:44 Decadron SLOW IVP 11/24/19 00:00 3 mg Q6HR SHAKIR Administration Enoxaparin Sodium 40 mg 11/19/19 21:00 11/22/19 20:57 Lovenox SC 40 mg 2100 SHAKIR Administration Hydralazine HCl 10 mg 11/18/19 12:35 11/22/19 17:25 Apresoline SLOW IVP 10 mg Q15MIN PRN Administration SBP greater than 140 Latanoprost 1 drop 11/14/19 21:00 11/22/19 20:58 Xalatan 0.005% Ophth Soln EA EYE 1 drop HS SHAKIR Administration Levetiracetam 500 mg 11/16/19 21:00 11/23/19 08:57 Keppra PO 500 mg BID SHAKIR Administration Levothyroxine Sodium 75 mcg 11/14/19 06:00 11/23/19 05:44 Synthroid PO 75 mcg 0600 SHAKIR Administration Lisinopril 20 mg 11/23/19 09:00 11/23/19 08:57 Zestril PO 20 mg DAILY SHAKIR Administration Morphine Sulfate 4 mg 11/14/19 09:08 11/19/19 14:38 Morphine SLOW IVP 4 mg Q4H PRN Administration Severe Pain (7-10) Ondansetron HCl 4 mg 11/14/19 09:09 11/19/19 16:08 Zofran IVP 4 mg Q6H PRN Administration Nausea/Vomiting Pantoprazole Sodium 40 mg 11/15/19 09:00 11/23/19 08:59 Protonix IVP 40 mg DAILY SHAKIR Administration Sodium Chloride 10 ml 11/13/19 22:32 11/22/19 09:07 Flush - Normal Saline IVF 10 ml PRN PRN Administration Saline Flush Timolol Maleate 1 drop 11/14/19 09:00 11/22/19 20:58 Timoptic 0.5% Ophth Soln EA EYE 1 drop BID SHAKIR Administration - Exam General Appearance: NAD Heart: RRR, no murmur Respiratory: CTAB, no wheezes, no rales, no ronchi Gastrointestinal: soft, non-tender, non-distended, normal bowel sounds Extremities: no cyanosis, no clubbing, no edema Psychiatric - other findings: tearful at time with evaluation Hosp A/P (1) Glioblastoma multiforme Code(s): C71.9 - MALIGNANT NEOPLASM OF BRAIN, UNSPECIFIED Status: Acute (2) Glaucoma Code(s): H40.9 - UNSPECIFIED GLAUCOMA Status: Chronic (3) HLD (hyperlipidemia) Code(s): E78.5 - HYPERLIPIDEMIA, UNSPECIFIED Status: Chronic (4) HTN (hypertension) Code(s): I10 - ESSENTIAL (PRIMARY) HYPERTENSION Status: Chronic (5) Hypothyroidism Code(s): E03.9 - HYPOTHYROIDISM, UNSPECIFIED Status: Chronic (6) Hyponatremia Code(s): E87.1 - HYPO-OSMOLALITY AND HYPONATREMIA Status: Acute - Plan HTN - not at goal of SBP 100-140 - amlodipine started yesterday and increased to 5 mg bid - lisinopril increased to 20 mg daily (from 10 mg daily) - will add scheduled hydralazine PO as well - starting with 25 mg four times daily with hold parameters to avoid hypotension. - as the steroids are weaned, these meds will need to be weaned off or lowered GBM s/p resection - steroids per NS - cont therapy - plan for chemoradiotherapy after rehab Hyponatremia - stable, appreciate Nephrology consult glaucoma - continue current meds HLP - cont statin DVT prophy -scd's gi prophy - will change to oral reviewed plan of care with patient/family, no questions or further needs at end of eval
[2019-11-23] MEDS: hydrALAZINE 20 MG/ML VIAL SLOW IVP PRN ×3 (09:39→13:13)
[2019-11-23] MEDS ORDERED: Docusate 100 MG CAP PO SCH (09:45)
--- NOTE | 2019-11-23 10:31 | PRG ---
DATE OF SERVICE: 11/23/2019 I saw Mj Mohr in the rounds today. His son was at his bedside. He did not have any complaints today. His son notices that he is not independent for activities of daily living. Overnight, the maximum temperature I saw recorded was 99.0 degrees Fahrenheit. Blood pressures have been a bit up in the 150s to 170s. Medical team is working on that. Currently Mr. Mohr has some cortical sensory loss affecting the right side of his body, especially the leg more so than the arm, which makes mobilization difficult. Sodium is 132. The white blood cell count is 9.9. Mr. Mohr will continue to work with therapy and likely need some inpatient rehabilitation. Oncology and Radiation Oncology will design a treatment plan for his glioblastoma hereafter. Job ID: [id number] MTDD
[2019-11-23] MEDS: Polyethylene Glycol 3350 17 GM Packet PO SCH (10:39)
[2019-11-23] MEDS: hydrALAZINE 25 MG TAB PO SCH ×3 (12:40→20:07)
[2019-11-23] MEDS ORDERED: hydrALAZINE 20 MG/ML VIAL SLOW IVP PRN (14:51)
[2019-11-23] MEDS ORDERED: Sodium Chloride 0.9% 500 ML IV SCH (15:15)
--- NOTE | 2019-11-23 16:38 | PRG ---
DATE OF SERVICE: 11/23/2019 SUBJECTIVE: Patient was seen and examined at bedside and overnight events noted. Patient denies any shortness of breath or chest pain or palpitation. No history of nausea or vomiting or diarrhea or fever or chills or cramps. OBJECTIVE: GENERAL: This is a well-built male, in no apparent distress. VITAL SIGNS: Temperature 97.7. Heart rate 73. Respiratory rate 18. Blood pressure 138/72. HEENT: Atraumatic, normocephalic. Oral mucosa is moist NECK: Supple. CARDIOVASCULAR: S1, S2 heard. Rate and rhythm regular. RESPIRATORY: Clear to auscultation. GASTROINTESTINAL: Abdomen is soft. MUSCULOSKELETAL: No tenderness. No edema. DERMATOLOGIC: No skin rash. NEUROLOGIC: Alert and awake and oriented X3. No focal neurologic deficits. Moving all the extremities. PSYCHIATRIC: Mood and affect normal. LABORATORY DATA: Sodium is 132. Potassium is 4.9. ASSESSMENT AND PLAN: 1. Hyponatremia, sodium dropping slowly. We will give 500 mL of NS slowly over today. 2. Edema, controlled. 3. History of hypertension. 4. Hypochloremia. Restart IV fluids. Limit free water intake. We will follow. Job ID: [id number]
[2019-11-23] MEDS: Docusate 100 MG CAP PO SCH (20:07)
[2019-11-23] MEDS: Latanoprost 0.005% Ophth Soln 2.5 ml Bottle EA EYE SCH (20:07)
[2019-11-23] MEDS: Atorvastatin Calcium 10 MG TAB PO SCH (20:07)
[2019-11-23] MEDS: Enoxaparin Sodium 40 MG/0.4 ML SYRINGE SC SCH (20:08)
[2019-11-24] MEDS: Dexamethasone 4 mg/ml Vial SLOW IVP SCH ×4 (00:52→17:33)
[2019-11-24 05:04] LABS: Anion Gap 11 mmol/L (10-20); BUN (Urea Nitrogen) 21 mg/dL (8.4-25.7); Calc. Creatinine Clearance 112 mL/min (70-130); Carbon Dioxide 23 mmol/L (23-31); Chloride 100 mmol/L (98-107); Estimated GFR-MDRD Greater than 90; Glucose 103 mg/dL (83-110); Sodium 129 mmol/L (136-145)
[2019-11-24] MEDS: Levothyroxine Sodium 75 MCG TAB PO SCH (05:34)
--- NOTE | 2019-11-24 08:55 | PDOC.HOSPP ---
- Subjective Encounter Date: 11/24/19 Encounter Time: 10:30 Subjective: Patients with some vision difficulty, weakness in right, and loss of sensation, trouble with right sided coordination. Ready for rehab per Neurosurgery. No BM for a week. No abd pain and eating very well. - Objective Vital Signs & Weight: Vital Signs (12 hours) Temp Pulse Resp BP Pulse Ox 11/24/19 07:38 98.4 F 70 16 157/93 H 98 11/24/19 05:37 97.1 F L 69 16 145/84 H 98 11/24/19 00:00 97.2 F L 68 18 146/77 H 97 Weight Weight 182 lb 12.211 oz Most Recent Monitor Data Heart Rate from ECG 75 NIBP 163/93 NIBP BP-Mean 116 Respiration from ECG 20 SpO2 99 I&O: 11/23/19 11/24/19 11/25/19 06:59 06:59 06:59 Intake Total 1500 1948 Output Total 3200 3725 Balance -1700 -1777 Result Diagrams: 11/23/19 05:21 11/24/19 04:29 Additional Labs: Accuchecks 11/23/19 11/23/19 11/23/19 20:29 16:18 11:05 POC Glucose 147 H 146 H 139 H Hospitalist ROS - Review of Systems Constitutional: denies: fever, chills Respiratory: denies: cough, shortness of breath Cardiovascular: denies: chest pain, palpitations, orthopnea Gastrointestinal: reports: constipation. denies: nausea, vomiting, abdominal pain - Medication Medications: Active Medications Generic Name Dose Route Start Last Admin Trade Name Freq PRN Reason Stop Dose Admin Hydrocodone Bitart/Acetaminophen 2 tab 11/14/19 09:10 11/18/19 14:13 [place] 5/325 PO 2 tab Q4H PRN Administration Moderate Pain (4-6) Amlodipine Besylate 5 mg 11/22/19 21:00 11/23/19 20:07 Norvasc PO 5 mg BID SHAKIR Administration Atorvastatin Calcium 10 mg 11/14/19 21:00 11/23/19 20:07 Lipitor PO 10 mg HS SHAKIR Administration Brimonidine Tartrate 1 drop 11/14/19 09:00 11/23/19 20:08 Alphagan 0.2% Ophth Soln EA EYE 1 drop BID SHAKIR Administration Brinzolamide 1 drop 11/14/19 21:00 11/23/19 20:07 Azopt 1% Ophth Susp EA EYE 1 drop BID SHAKIR Administration Citalopram Hydrobromide 20 mg 11/15/19 09:00 11/23/19 08:57 Celexa PO 20 mg DAILY SHAKIR Administration Dexamethasone 2 mg 11/24/19 06:00 11/24/19 05:34 Decadron SLOW IVP 11/26/19 00:00 2 mg Q6HR SHAKIR Administration Docusate Sodium 100 mg 11/23/19 21:00 11/23/19 20:07 Colace PO 100 mg BID SHAKIR Administration Enoxaparin Sodium 40 mg 11/19/19 21:00 11/23/19 20:08 Lovenox SC 40 mg 2100 SHAKIR Administration Hydralazine HCl 25 mg 11/23/19 13:00 11/23/19 20:07 Apresoline PO 25 mg QID SHAKIR Administration Hydralazine HCl 10 mg 11/23/19 14:51 11/23/19 14:55 Apresoline SLOW IVP 10 mg Q4H PRN Administration SBP greater than 140 Latanoprost 1 drop 11/14/19 21:00 11/23/19 20:07 Xalatan 0.005% Ophth Soln EA EYE 1 drop HS SHAKIR Administration Levetiracetam 500 mg 11/16/19 21:00 11/23/19 20:07 Keppra PO 500 mg BID SHAKIR Administration Levothyroxine Sodium 75 mcg 11/14/19 06:00 11/24/19 05:34 Synthroid PO 75 mcg 0600 SHAKIR Administration Lisinopril 20 mg 11/23/19 09:00 11/23/19 08:57 Zestril PO 20 mg DAILY SHAKIR Administration Morphine Sulfate 4 mg 11/14/19 09:08 11/19/19 14:38 Morphine SLOW IVP 4 mg Q4H PRN Administration Severe Pain (7-10) Ondansetron HCl 4 mg 11/14/19 09:09 11/19/19 16:08 Zofran IVP 4 mg Q6H PRN Administration Nausea/Vomiting Polyethylene Glycol 17 gm 11/23/19 09:00 11/23/19 10:39 Miralax PO 17 gm DAILY SHAKIR Administration Sodium Chloride 10 ml 11/13/19 22:32 11/22/19 09:07 Flush - Normal Saline IVF 10 ml PRN PRN Administration Saline Flush Timolol Maleate 1 drop 11/14/19 09:00 11/23/19 20:08 Timoptic 0.5% Ophth Soln EA EYE 1 drop BID SHAKIR Administration - Exam General Appearance: NAD, awake alert Eye: anicteric sclera ENT: moist mucosa Heart: RRR, no murmur, no gallops Respiratory: CTAB, no wheezes, no rales Gastrointestinal: soft, non-tender, non-distended, normal bowel sounds Psychiatric: normal affect, normal behavior Hosp A/P (1) Glioblastoma multiforme Code(s): C71.9 - MALIGNANT NEOPLASM OF BRAIN, UNSPECIFIED Status: Acute (2) HTN (hypertension) Code(s): I10 - ESSENTIAL (PRIMARY) HYPERTENSION Status: Chronic Qualifiers: Hypertension type: essential hypertension Qualified Code(s): I10 - Essential (primary) hypertension (3) HLD (hyperlipidemia) Code(s): E78.5 - HYPERLIPIDEMIA, UNSPECIFIED Status: Chronic (4) Hypothyroidism Code(s): E03.9 - HYPOTHYROIDISM, UNSPECIFIED Status: Chronic (5) Hyponatremia Code(s): E87.1 - HYPO-OSMOLALITY AND HYPONATREMIA Status: Acute (6) Glaucoma Code(s): H40.9 - UNSPECIFIED GLAUCOMA Status: Chronic - Plan BP with improved control, will likely improve further when steroids are withdrawn Sodium with further drop since yesterday, free water restriction, Dr. Alves following, he wants to keep him at least one more day before rehab Plan for rehab then will need radiochemotherapy as outpatient
[2019-11-24] MEDS: Docusate 100 MG CAP PO SCH ×2 (09:15→20:01)
[2019-11-24] MEDS: levETIRAcetam 500 MG TAB PO SCH ×2 (09:15→20:02)
[2019-11-24] MEDS: Amlodipine 5 MG TAB PO SCH ×2 (09:15→20:01)
[2019-11-24] MEDS: Lisinopril 20 MG TAB PO SCH (09:16)
[2019-11-24] MEDS: Polyethylene Glycol 3350 17 GM Packet PO SCH (09:16)
[2019-11-24] MEDS: Citalopram 20 MG TAB PO SCH (09:17)
[2019-11-24] MEDS: hydrALAZINE 25 MG TAB PO SCH ×4 (09:17→20:01)
[2019-11-24] MEDS: Brinzolamide 1% Ophth SUSP 10 ml Bottle EA EYE SCH ×2 (09:17→20:03)
[2019-11-24] MEDS: Timolol 0.5% Ophth Soln 5 ml Bottle EA EYE SCH ×2 (09:19→20:09)
[2019-11-24] MEDS: Brimonidine Tartrate 0.2% Ophth Soln 5 ml Bottle EA EYE SCH ×2 (09:19→20:08)
--- NOTE | 2019-11-24 12:15 | PRG ---
DATE OF SERVICE: 11/24/2019 This is Adama Caicedo PA-C dictating a report for Gallo Rubio MD. SUBJECTIVE: Mr. Mohr is postoperative day #5, having undergone left parietal tumor resection. Pathology was consistent with GBM. The patient has improved in his neurologic status. He no longer has right-sided neglect and actually has no appreciative weakness in the right arm or leg. His sodium has been unfortunately dropping from 132 to 129. Cognitively, the patient had improved. He is able to correctly calculate 2 plus 2 equals 4 and he is able to tell me that . The patient appears to be rather in better spirits as well. The patient would like to continue to watch his sodium, but I think he would benefit greatly from inpatient rehab. He is safe to go from neurosurgical standpoint. We will arrange for stable 14 to 17 days postop. Please call with any changes in the patient's neurologic status. Otherwise, we appreciate our medical colleagues as well as Nephrology for managing his hyponatremia. He remains on prophylactic Lovenox and Protonix. He is on a Decadron taper and is on prophylactic Keppra. Job ID: [id number]
[2019-11-24] MEDS ORDERED: Senokot 8.6 MG TAB PO PRN (12:30)
[2019-11-24 13:11] VITALS: BMI 26.2
[2019-11-24] MEDS ORDERED: Tolvaptan 15 MG TAB PO SCH (16:30)
--- NOTE | 2019-11-24 16:51 | PRG ---
DATE OF SERVICE: 11/24/2019 SUBJECTIVE: Patient was seen and examined at bedside and overnight events noted. Patient denies any shortness of breath or chest pain or palpitation. No history of nausea or vomiting or diarrhea or fever or chills or cramps. OBJECTIVE: GENERAL: This is a well-built male, in no apparent distress. VITAL SIGNS: Temperature 98. Heart rate 75. Respiratory rate 16. Blood pressure 151/82. HEENT: Atraumatic, normocephalic. Oral mucosa is moist NECK: Supple. CARDIOVASCULAR: S1, S2 heard. Rate and rhythm regular. RESPIRATORY: Clear to auscultation. GASTROINTESTINAL: Abdomen is soft. MUSCULOSKELETAL: No tenderness. No edema. DERMATOLOGIC: No skin rash. NEUROLOGIC: Alert and awake and oriented X3. No focal neurologic deficits. Moving all the extremities. PSYCHIATRIC: Mood and affect normal. LABORATORY DATA: Sodium 129, BUN is 21, creatinine is 0.6. Urine sodium is 86. Serum osmolality was 611. ASSESSMENT AND PLAN: 1. Hyponatremia, getting worse, urine studies suggest SIADH at this point and sodium did get worse with NS. Plan is to try tolvaptan, limit fluid intake. 2. Edema, uncontrolled. 3. History of hypertension. 4. Hypochloremia. Continue to limit free water intake and we will give a dose of tolvaptan. If sodium is improving, should be able to transfer him to rehab tomorrow. Job ID: [id number]
[2019-11-24] MEDS: Atorvastatin Calcium 10 MG TAB PO SCH (20:01)
[2019-11-24] MEDS: Enoxaparin Sodium 40 MG/0.4 ML SYRINGE SC SCH (20:02)
[2019-11-24] MEDS: Latanoprost 0.005% Ophth Soln 2.5 ml Bottle EA EYE SCH (20:13)
[2019-11-25] MEDS: Dexamethasone 4 mg/ml Vial SLOW IVP SCH ×4 (01:00→17:35)
[2019-11-25 05:42] LABS: Anion Gap 10 mmol/L (10-20); BUN (Urea Nitrogen) 21 mg/dL (8.4-25.7); Calc. Creatinine Clearance 106 mL/min (70-130); Calcium 8.3 mg/dL (7.8-10.44); Carbon Dioxide 25 mmol/L (23-31); Chloride 103 mmol/L (98-107); Estimated GFR-MDRD Greater than 90; Glucose 97 mg/dL (83-110); Potassium 4.8 mmol/L (3.5-5.1); Sodium 133 mmol/L (136-145)
[2019-11-25] MEDS: Levothyroxine Sodium 75 MCG TAB PO SCH (05:42)
[2019-11-25] MEDS: levETIRAcetam 500 MG TAB PO SCH (08:20)
[2019-11-25] MEDS: hydrALAZINE 25 MG TAB PO SCH ×4 (08:20→21:17)
[2019-11-25] MEDS: Amlodipine 5 MG TAB PO SCH ×2 (08:20→21:18)
[2019-11-25] MEDS: Citalopram 20 MG TAB PO SCH (08:21)
[2019-11-25] MEDS: Polyethylene Glycol 3350 17 GM Packet PO SCH (08:21)
[2019-11-25] MEDS: Lisinopril 20 MG TAB PO SCH (08:21)
[2019-11-25] MEDS: Docusate 100 MG CAP PO SCH ×2 (08:21→21:18)
[2019-11-25] MEDS: Timolol 0.5% Ophth Soln 5 ml Bottle EA EYE SCH ×2 (08:22→21:21)
[2019-11-25] MEDS: Brimonidine Tartrate 0.2% Ophth Soln 5 ml Bottle EA EYE SCH ×2 (08:23→21:21)
[2019-11-25] MEDS: Brinzolamide 1% Ophth SUSP 10 ml Bottle EA EYE SCH ×2 (08:23→21:16)
--- NOTE | 2019-11-25 09:57 | PDOC.HOSPP ---
- Subjective Encounter Date: 11/25/19 Encounter Time: 11:50 Subjective: Patient without complaints. No events overnight. Waiting on rehab. - Objective Vital Signs & Weight: Vital Signs (12 hours) Temp Pulse Resp BP BP Pulse Ox 11/25/19 08:22 75 143/81 H 11/25/19 08:21 143/81 H 11/25/19 08:20 75 143/81 H 98 11/25/19 07:13 99.0 F 75 16 143/81 H 98 11/25/19 02:54 97.7 F 71 20 148/89 H 97 11/24/19 22:58 97.5 F L 74 20 120/69 97 Weight Admit Weight 182 lb 12.16 oz Weight 182 lb 12.16 oz Most Recent Monitor Data Heart Rate from ECG 75 NIBP 163/93 NIBP BP-Mean 116 Respiration from ECG 20 SpO2 99 I&O: 11/24/19 11/25/19 11/26/19 06:59 06:59 06:59 Intake Total 194 1194 Output Total 3081 1564 Balance -2416 -9456 Result Diagrams: 11/23/19 05:21 11/25/19 04:40 Additional Labs: Accuchecks 11/25/19 11/24/19 11/24/19 05:24 20:56 16:09 POC Glucose 96 148 H 102 11/24/19 11:19 POC Glucose 120 H Hospitalist ROS - Review of Systems Constitutional: denies: fever, chills Respiratory: denies: cough, shortness of breath Cardiovascular: denies: chest pain, palpitations Gastrointestinal: denies: nausea, vomiting, abdominal pain - Medication Medications: Active Medications Generic Name Dose Route Start Last Admin Trade Name Freq PRN Reason Stop Dose Admin Amlodipine Besylate 5 mg 11/22/19 21:00 11/25/19 08:20 Norvasc PO 5 mg BID SHAKIR Administration Atorvastatin Calcium 10 mg 11/14/19 21:00 11/24/19 20:01 Lipitor PO 10 mg HS SHAKIR Administration Brimonidine Tartrate 1 drop 11/14/19 09:00 11/25/19 08:23 Alphagan 0.2% Ophth Soln EA EYE 1 drop BID SHAKIR Administration Brinzolamide 1 drop 11/14/19 21:00 11/25/19 08:23 Azopt 1% Ophth Susp EA EYE 1 drop BID SHAKIR Administration Citalopram Hydrobromide 20 mg 11/15/19 09:00 11/25/19 08:21 Celexa PO 20 mg DAILY SHAKIR Administration Dexamethasone 2 mg 11/24/19 06:00 11/25/19 05:42 Decadron SLOW IVP 11/26/19 00:00 2 mg Q6HR SHAKIR Administration Docusate Sodium 100 mg 11/23/19 21:00 11/25/19 08:21 Colace PO 100 mg BID SHAKIR Administration Enoxaparin Sodium 40 mg 11/19/19 21:00 11/24/19 20:02 Lovenox SC 40 mg 2100 SHAKIR Administration Hydralazine HCl 25 mg 11/23/19 13:00 11/25/19 08:20 Apresoline PO 25 mg QID SHAKIR Administration Hydralazine HCl 10 mg 11/23/19 14:51 11/23/19 14:55 Apresoline SLOW IVP 10 mg Q4H PRN Administration SBP greater than 140 Lactulose 20 gm 11/23/19 09:34 11/24/19 11:07 Lactulose PO 20 gm DAILYPRN PRN Administration Constipation Latanoprost 1 drop 11/14/19 21:00 11/24/19 20:13 Xalatan 0.005% Ophth Soln EA EYE 1 drop HS SHAKIR Administration Levothyroxine Sodium 75 mcg 11/14/19 06:00 11/25/19 05:42 Synthroid PO 75 mcg 0600 SHAKIR Administration Lisinopril 20 mg 11/23/19 09:00 11/25/19 08:21 Zestril PO 20 mg DAILY SHAKIR Administration Ondansetron HCl 4 mg 11/14/19 09:09 11/19/19 16:08 Zofran IVP 4 mg Q6H PRN Administration Nausea/Vomiting Pantoprazole Sodium 40 mg 11/24/19 09:00 11/25/19 08:20 Protonix PO 40 mg DAILY SHAKIR Administration Polyethylene Glycol 17 gm 11/23/19 09:00 11/25/19 08:21 Miralax PO 17 gm DAILY SHAKIR Administration Sodium Chloride 10 ml 11/13/19 22:32 11/25/19 01:00 Flush - Normal Saline IVF 10 ml PRN PRN Administration Saline Flush Timolol Maleate 1 drop 11/14/19 09:00 11/25/19 08:22 Timoptic 0.5% Ophth Soln EA EYE 1 drop BID SHAKIR Administration - Exam General Appearance: NAD, awake alert Heart: RRR, no murmur, no gallops, no rubs Respiratory: CTAB, no wheezes, no rales, no ronchi Gastrointestinal: soft, non-tender, non-distended, normal bowel sounds Extremities: no edema Neurological - other findings: incoordination right side, but good strength Psychiatric: normal affect, normal behavior Hosp A/P (1) Glioblastoma multiforme Code(s): C71.9 - MALIGNANT NEOPLASM OF BRAIN, UNSPECIFIED Status: Acute (2) HTN (hypertension) Code(s): I10 - ESSENTIAL (PRIMARY) HYPERTENSION Status: Chronic Qualifiers: Hypertension type: essential hypertension Qualified Code(s): I10 - Essential (primary) hypertension (3) HLD (hyperlipidemia) Code(s): E78.5 - HYPERLIPIDEMIA, UNSPECIFIED Status: Chronic (4) Hypothyroidism Code(s): E03.9 - HYPOTHYROIDISM, UNSPECIFIED Status: Chronic (5) SIADH (syndrome of inappropriate ADH production) Status: Acute (6) Glaucoma Code(s): H40.9 - UNSPECIFIED GLAUCOMA Status: Chronic - Plan BP with improved control, will likely improve further when steroids are withdrawn Sodium with further drop yesterday, free water restriction, improved today with Tolvaptan dose, ok to go to rehab Plan for rehab when approved then will need radiochemotherapy as outpatient
--- NOTE | 2019-11-25 12:48 | PRG ---
DATE OF SERVICE: 11/25/2019 This is Adama Caicedo PA-C dictating a report for Gallo Rubio MD. Mr. Mohr is on postoperative day #7, having undergone left parietal tumor resection consistent with GBM. The patient overall neurologically appears to be stable. He is slightly delayed in his responses. However, he is able to do calculations, write his name, and appropriately show me his left index finger and right pinky. He has according to nursing staff been up walking with physical therapy. He has some trace weakness on to the right arm and leg, but this appears to be improving. He will be ready for discharge once arrangements have been made at inpatient rehab and we hope for this to be tomorrow. We have discontinued his Keppra as he has been on this for a week. Continue with Lovenox, there is a high risk for DVT of the bilateral lower extremities. Sodium is improving at 133. I believe discontinuing the Keppra may help to improve some of his cognition. Again, I would plan for dismissal tomorrow once arrangements have been made to inpatient rehab. Please call with any changes in the patient's neurologic status. Job ID: [id number]
--- NOTE | 2019-11-25 13:01 | PRG ---
DATE OF SERVICE: 11/25/2019 SUBJECTIVE: Patient was seen and examined at bedside and overnight events noted. Patient denies any shortness of breath or chest pain or palpitation. No history of nausea or vomiting or diarrhea or fever or chills or cramps. OBJECTIVE: GENERAL: This is a well-built male, in no apparent distress. VITAL SIGNS: Temperature 99.3. Heart rate 72. Respiratory rate 16. Blood pressure 190/70. HEENT: Atraumatic, normocephalic. Oral mucosa is moist NECK: Supple. CARDIOVASCULAR: S1, S2 heard. Rate and rhythm regular. RESPIRATORY: Clear to auscultation. GASTROINTESTINAL: Abdomen is soft. MUSCULOSKELETAL: No tenderness. No edema. DERMATOLOGIC: No skin rash. NEUROLOGIC: Alert and awake and oriented X3. No focal neurologic deficits. Moving all the extremities. PSYCHIATRIC: Mood and affect normal. LABORATORY DATA: Potassium 4.8, BUN is 21, creatinine is 0.7, sodium is 133. ASSESSMENT AND PLAN: 1. Hyponatremia secondary to syndrome of inappropriate antidiuretic hormone secretion, better with tolvaptan. Continue on fluid restriction. 2. Edema, uncontrolled. 3. History of hypertension. 4. Hypochloremia. 5. Sodium level is better. Okay to discharge from Nephrology standpoint. Recommend 1 L fluid restriction until sodium level stabilizes to normal range. We will follow. Job ID: [id number]
[2019-11-25] MEDS: Atorvastatin Calcium 10 MG TAB PO SCH (21:18)
[2019-11-25] MEDS: Enoxaparin Sodium 40 MG/0.4 ML SYRINGE SC SCH (21:18)
[2019-11-25] MEDS: Latanoprost 0.005% Ophth Soln 2.5 ml Bottle EA EYE SCH (21:26)
[2019-11-26] MEDS: Dexamethasone 4 mg/ml Vial SLOW IVP SCH (00:14)
[2019-11-26] MEDS: Levothyroxine Sodium 75 MCG TAB PO SCH (05:50)
[2019-11-26] MEDS ORDERED: Dexamethasone 4 mg/ml Vial SLOW IVP SCH (06:00)
[2019-11-26 06:02] LABS: Anion Gap 10 mmol/L (10-20); BUN (Urea Nitrogen) 25 mg/dL (8.4-25.7); Calc. Creatinine Clearance 109 mL/min (70-130); Calcium 8.4 mg/dL (7.8-10.44); Carbon Dioxide 26 mmol/L (23-31); Chloride 99 mmol/L (98-107); Estimated GFR-MDRD Greater than 90; Glucose 96 mg/dL (83-110); Potassium 5.1 mmol/L (3.5-5.1); Sodium 130 mmol/L (136-145)
[2019-11-26] MEDS: Lisinopril 20 MG TAB PO SCH (09:03)
[2019-11-26] MEDS: Polyethylene Glycol 3350 17 GM Packet PO SCH (09:03)
[2019-11-26] MEDS: Docusate 100 MG CAP PO SCH (09:03)
[2019-11-26] MEDS: hydrALAZINE 25 MG TAB PO SCH ×2 (09:04→12:17)
[2019-11-26] MEDS: Amlodipine 5 MG TAB PO SCH (09:04)
[2019-11-26] MEDS: Citalopram 20 MG TAB PO SCH (09:04)
[2019-11-26] MEDS: Brinzolamide 1% Ophth SUSP 10 ml Bottle EA EYE SCH (09:05)
[2019-11-26] MEDS: Timolol 0.5% Ophth Soln 5 ml Bottle EA EYE SCH (09:05)
[2019-11-26] MEDS: Brimonidine Tartrate 0.2% Ophth Soln 5 ml Bottle EA EYE SCH (09:05)
--- NOTE | 2019-11-26 09:39 | PDOC.HOSPP ---
- Subjective Encounter Date: 11/26/19 Encounter Time: 10:00 Subjective: Patient without complaints. Passing stools well. No pain. Approved for rehab. - Objective Vital Signs & Weight: Vital Signs (12 hours) Temp Pulse Resp BP BP Pulse Ox 11/26/19 09:05 66 138/85 11/26/19 09:04 66 138/85 11/26/19 09:03 138/85 11/26/19 07:16 98.6 F 66 16 138/85 98 11/26/19 03:13 98.5 F 70 16 121/80 97 11/25/19 23:08 98.5 F 73 18 128/72 97 Weight Admit Weight 182 lb 12.16 oz Weight 182 lb 12.16 oz Most Recent Monitor Data Heart Rate from ECG 75 NIBP 163/93 NIBP BP-Mean 116 Respiration from ECG 20 SpO2 99 I&O: 11/25/19 11/26/19 11/27/19 06:59 06:59 06:59 Intake Total 1194 1480 Output Total 7112 7705 Balance -0680 -207 Result Diagrams: 11/23/19 05:21 11/26/19 04:56 Additional Labs: Accuchecks 11/26/19 11/25/19 11/25/19 05:03 20:39 15:13 POC Glucose 91 111 H 160 H 11/25/19 10:46 POC Glucose 108 Hospitalist ROS - Review of Systems Constitutional: denies: fever, chills Respiratory: denies: cough, shortness of breath Cardiovascular: denies: chest pain, palpitations, orthopnea Gastrointestinal: denies: nausea, vomiting, abdominal pain, diarrhea, constipation - Medication Medications: Active Medications Generic Name Dose Route Start Last Admin Trade Name Freq PRN Reason Stop Dose Admin Amlodipine Besylate 5 mg 11/22/19 21:00 11/26/19 09:04 Norvasc PO 5 mg BID SHAKIR Administration Atorvastatin Calcium 10 mg 11/14/19 21:00 11/25/19 21:18 Lipitor PO 10 mg HS SHAKIR Administration Brimonidine Tartrate 1 drop 11/14/19 09:00 11/26/19 09:05 Alphagan 0.2% Ophth Soln EA EYE 1 drop BID SHAKIR Administration Brinzolamide 1 drop 11/14/19 21:00 11/26/19 09:05 Azopt 1% Ophth Susp EA EYE 1 drop BID SHAKIR Administration Citalopram Hydrobromide 20 mg 11/15/19 09:00 11/26/19 09:04 Celexa PO 20 mg DAILY SHAKIR Administration Dexamethasone 1 mg 11/26/19 06:00 11/26/19 05:50 Decadron SLOW IVP 11/28/19 00:00 1 mg Q6HR SHAKIR Administration Docusate Sodium 100 mg 11/23/19 21:00 11/26/19 09:03 Colace PO 100 mg BID SHAKIR Administration Enoxaparin Sodium 40 mg 11/19/19 21:00 11/25/19 21:18 Lovenox SC 40 mg 2100 SHAKIR Administration Hydralazine HCl 25 mg 11/23/19 13:00 11/26/19 09:04 Apresoline PO 25 mg QID SHAKIR Administration Hydralazine HCl 10 mg 11/23/19 14:51 11/23/19 14:55 Apresoline SLOW IVP 10 mg Q4H PRN Administration SBP greater than 140 Lactulose 20 gm 11/23/19 09:34 11/24/19 11:07 Lactulose PO 20 gm DAILYPRN PRN Administration Constipation Latanoprost 1 drop 11/14/19 21:00 11/25/19 21:26 Xalatan 0.005% Ophth Soln EA EYE 1 drop HS SHAKIR Administration Levothyroxine Sodium 75 mcg 11/14/19 06:00 11/26/19 05:50 Synthroid PO 75 mcg 0600 SHAKIR Administration Lisinopril 20 mg 11/23/19 09:00 11/26/19 09:03 Zestril PO 20 mg DAILY SHAKIR Administration Ondansetron HCl 4 mg 11/14/19 09:09 11/19/19 16:08 Zofran IVP 4 mg Q6H PRN Administration Nausea/Vomiting Pantoprazole Sodium 40 mg 11/24/19 09:00 11/26/19 09:04 Protonix PO 40 mg DAILY SHAKIR Administration Polyethylene Glycol 17 gm 11/23/19 09:00 11/26/19 09:03 Miralax PO 17 gm DAILY SHAKIR Administration Sodium Chloride 10 ml 11/13/19 22:32 11/26/19 00:14 Flush - Normal Saline IVF 10 ml PRN PRN Administration Saline Flush Timolol Maleate 1 drop 11/14/19 09:00 11/26/19 09:05 Timoptic 0.5% Ophth Soln EA EYE 1 drop BID SHAKIR Administration - Exam General Appearance: NAD, awake alert Heart: RRR, no murmur, no gallops, no rubs Respiratory: CTAB, no wheezes, no rales, no ronchi Gastrointestinal: soft, non-tender, non-distended, normal bowel sounds Neurological - other findings: some ataxia of right side Psychiatric: normal affect, normal behavior Hosp A/P (1) Glioblastoma multiforme Code(s): C71.9 - MALIGNANT NEOPLASM OF BRAIN, UNSPECIFIED Status: Acute (2) HTN (hypertension) Code(s): I10 - ESSENTIAL (PRIMARY) HYPERTENSION Status: Chronic Qualifiers: Hypertension type: essential hypertension Qualified Code(s): I10 - Essential (primary) hypertension (3) HLD (hyperlipidemia) Code(s): E78.5 - HYPERLIPIDEMIA, UNSPECIFIED Status: Chronic (4) Hypothyroidism Code(s): E03.9 - HYPOTHYROIDISM, UNSPECIFIED Status: Chronic (5) SIADH (syndrome of inappropriate ADH production) Status: Acute (6) Glaucoma Code(s): H40.9 - UNSPECIFIED GLAUCOMA Status: Chronic - Plan BP with improved control, will likely improve further when steroids are withdrawn Sodium low, free water restriction, improved with Tolvaptan dose, ok to go to rehab accepted at [facility], then will need radiochemotherapy as outpatient
--- NOTE | 2019-11-26 09:50 | PRG ---
DATE OF SERVICE: 11/26/2019 Mr. Mohr is now postoperative day eight, having undergone left parietal craniotomy for GBM resection. The patient appears to be in good spirits. He is brushing his teeth with his left hand. He continues with weakness into the right side and although this has been intermittent, it is mild. He does have some difficulty with dorsiflexion and plantar flexion wiggling the toes today. He has, however, been up walking with therapies yesterday. His sodium has dropped to 130 from 133. Otherwise, the patient is neurologically intact and very pleasant and cheerful. He is ready for discharge to group home when arrangements have been made. We hope this will be today. Please call with any changes in patient's neurologic status. Job ID: [id number]
[2019-11-26 11:21] VITALS: BP 136/88; TEMP 98
[2019-11-26] MEDS ORDERED: Dexamethasone 1 MG TAB PO SCH (12:00)
--- NOTE | 2019-11-26 16:03 | DIS ---
DATE OF ADMISSION: 11/13/2019 DATE OF DISCHARGE: 11/26/2019 PRIMARY CARE PHYSICIAN: Salazar Esquivel MD REASON FOR ADMISSION: Right-sided weakness with brain mass. DIAGNOSES AT DISCHARGE: 1. Glioblastoma multiforme status post resection. 2. Hypertension. 3. Hyperlipidemia. 4. Hypothyroidism. 5. Syndrome of inappropriate antidiuretic hormone secretion. 6. Glaucoma. PROCEDURES: 1. MRI of the brain with and without contrast showing an intraparenchymal mass in the posterior left cerebrum with associated vasogenic edema, sulcal effacement, mass effect, and [id number] subfalcine herniation. There is also a component of the lesion that abuts the posterior left falx suggesting dural involvement as well. 2. Left parietal stereotactic craniotomy for tumor resection and use of operative microscope for microdissection with stereotactic guidance. 3. Postop CAT scan showing a postsurgical changes and associated pneumocephalus and trace subarachnoid blood. 4. Bilateral lower extremity ultrasound showing no evidence for deep venous thrombosis. CONSULTATIONS: 1. Neurosurgery, Gallo Rubio MD. 2. Nephrology, César Alves MD. 3. Palliative Care. SUMMARY OF HOSPITAL COURSE: This is a 74-year-old white male, who presented to an outside hospital for right-sided weakness. He was found to have a large left paramedian brain mass and he was transferred to our hospital for further evaluation. The patient was given IV Decadron, admitted to the hospital for further workup. Neurosurgery was consulted and they did a craniotomy and tumor resection as able. Per the above note, the patient did well postoperatively. He did have some complication of drop in his sodium. Dr. Alves was consulted for this. This was eventually determined to be SIADH and was stabilized with fluid restriction. The patient did have some elevations of his blood pressure on the steroids. This improved as the steroids are weaned down during hospitalization. The patient was able to get up and move around with physical therapy. He did have significant ataxia on his right side and some vision loss as well, and he was recommended for rehabilitation before going for outpatient chemo and radiation therapy for the tumor. On the day of discharge, the patient was approved for admission to [facility]. DISCHARGE MANAGEMENT: Discharged to [facility]. ACTIVITY: As tolerated. DIET: Regular diet with Ensure and live twice a day. THERAPIES: Occupational and physical therapy. EQUIPMENT: Supplies [facility]. FOLLOWUP: Follow up with Dr. Rubio in 2 weeks. After that, he will also need chemo and radiation Oncology followup. DISCHARGE MEDICATIONS: 1. Amlodipine 5 mg twice a day. 2. Atorvastatin 10 mg at night. 3. Alphagan 1 drop in each eye twice a day. 4. Azopt 1% ophthalmic suspension one drop in each eye twice a day. 5. Citalopram 20 mg daily. 6. Dexamethasone 1 mg every 6 hours for seven more tablets making stop the steroids. 7. Colace 100 mg twice a day. 8. Lovenox 40 mg subcu daily. 9. Hydralazine 25 mg 4 times a day. 10. Lactulose as needed. 11. Latanoprost drop in his eye each night. 12. Levothyroxine 75 mcg daily. 13. Lisinopril 20 mg daily. 14. Zofran as needed. 15. Protonix 40 mg daily. 16. MiraLAX 17 g daily. 17. Senokot two tablets at night as needed. 18. Fleet Enema as needed. 19. Timoptic ophthalmic solution one drop in each eye twice a day. Arranging the details of this discharge took 35 minutes. Job ID: [id number]
--- NOTE | 2019-11-26 19:08 | PRG ---
DATE OF SERVICE: 11/26/2019 SUBJECTIVE: Patient was seen and examined at bedside and overnight events noted. Patient denies any shortness of breath or chest pain or palpitation. No history of nausea or vomiting or diarrhea or fever or chills or cramps. OBJECTIVE: GENERAL: This is an obese male, in no apparent distress. VITAL SIGNS: Temperature 98.7. Heart rate . Respiratory rate 18. Blood pressure 136/88. HEENT: Atraumatic, normocephalic. Oral mucosa is moist NECK: Supple. CARDIOVASCULAR: S1, S2 heard. Rate and rhythm regular. RESPIRATORY: Clear to auscultation. GASTROINTESTINAL: Abdomen is soft. MUSCULOSKELETAL: No tenderness. No edema. DERMATOLOGIC: No skin rash. NEUROLOGIC: Alert and awake and oriented X3. No focal neurologic deficits. Moving all the extremities. PSYCHIATRIC: Mood and affect normal. LABORATORY DATA: Potassium 5.1, BUN is 25, creatinine 0.7, sodium . ASSESSMENT AND PLAN: 1. 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 Continue limit fluid intake. Continue close monitoring. We will recommend 1 L of fluid restriction per day. 2. Edema, controlled. 3. Hypertension. 4. Hypochloremia. Continue close monitor of sodium and limit fluid intake. Job ID: [id number]
== END 2019-11-26 12:30 | DRG 25 ==
LOC: ERS 18:16 → T4-A 22:25 → CCU 11-18 07:07 → SURG B 11-21 10:59
PROVIDERS: ADMIT Emergency Medicine; ATTEND Emergency Medicine
PROC: 00B70ZZ Excision of Cerebral Hemisphere, Open Approach (ICD-10-PCS; principal; 2019-11-18)
DX: C71.3 Malignant neoplasm of parietal lobe (principal); G93.6 Cerebral edema; Z66 Do not resuscitate; E22.2 Syndrome of inappropriate secretion of antidiuretic hormone; G81.91 Hemiplegia, unspecified affecting right dominant side; E78.5 Hyperlipidemia, unspecified; E03.9 Hypothyroidism, unspecified; I10 Essential (primary) hypertension; H40.9 Unspecified glaucoma; G89.29 Other chronic pain; R06.6 Hiccough; E87.8 Other disorders of electrolyte and fluid balance, not elsewhere classified; Z79.899 Other long term (current) drug therapy; Z79.890 Hormone replacement therapy
CPT/HCPCS: 36415; 36416; 70450; 70553; 80048; 80061; 81003; 81479; 82570; 83930; 83935; 84156; 84300; 84443; 85025; 85610; 85730; 86850; 86900; 86901; 88307; 88331; 88334; 93970; 96374; C1713; C9113; J0360; J0690; J1100; J1650; J1953; J2250; J2270; J2405; J2704; J3010; J3370; J3490; J7050; J8540

== ENCOUNTER 2019-11-30 18:34 | Inpatient (IN) | payer MEDICARE ==
[~2019-11-30 18:34] MED LIST: Iopamidol-370 76% 500 ML 1 ML ONE
[2019-11-30] MEDS ORDERED: Sodium Chloride 0.9% 100 ML ONE (19:06)
[2019-11-30] MEDS ORDERED: Piperacillin/Tazobactam 4.5 GM VIAL ONE (19:06)
--- NOTE | 2019-11-30 19:17 | CT ---
CT Brain WO Con: 11/30/2019 6:51 PM CLINICAL HISTORY: Fall. IMAGING TECHNIQUE: Multiple CT images were obtained of the brain without IV contrast. COMPARISON: CT the brain dated November 20, 2019 and November 19, 2019 FINDINGS: Brain: Resection cavity involving the left parietal lobe is similar appearing with improvement in th e surrounding vasogenic edema. Pneumocephalus overlying the left parietal lobe resection site is less prominent. Pneumocephalus overlying the anterior left frontal lobe has resolved. There is 1.7 mm of [id number] midline shift which is improved from the prior exam. Ventricles: Normal. No hydrocephalus. Skull: Craniotomy of the left parietal skull is stable. Visualized Paranasal sinuses: Clear. Mastoid air cells:Clear. Extracranial soft tissues:Normal. IMPRESSION: Improving surrounding vasogenic edema at the left parietal lobe resection cavity. Pneumocephalus is a lso improved. There is less left to right midline shift, now measuring approximately 1.7 mm.
[2019-11-30 19:29] LABS: Hemoglobin 12.8 g/dL (14.0-18.0); Mean Corpuscular HGB CONC 33.1 g/dL (32.0-36.0); Mean Corpuscular Hemoglobin 32.1 pg (27.0-31.0); Mean Platelet Volume 9.3 fL (7.4-10.4); Platelet Count 114 thou/uL (130-400); RBC Distribution Width 11.8 % (11.5-14.5); Red Blood Cell (RBC) Count 3.97 mill/uL (4.70-6.10); White Blood Cell (WBC) Count 25.9 thou/uL (4.8-10.8)
[2019-11-30 19:33] LABS: ALT (SGPT) 156 U/L (8-55); AST (SGOT) 81 U/L (5-34); Albumin 2.8 g/dL (3.4-4.8); Alkaline Phosphatase 116 U/L (40-110); Anion Gap 10 mmol/L (10-20); BUN (Urea Nitrogen) 43 mg/dL (8.4-25.7); Calc. Creatinine Clearance 0 mL/min (70-130); Calcium 7.8 mg/dL (7.8-10.44); Carbon Dioxide 23 mmol/L (23-31); Chloride 102 mmol/L (98-107); Estimated GFR-MDRD 61; Globulin 2.1 g/dL (2.4-3.5); Glucose 177 mg/dL (83-110); Potassium 4.2 mmol/L (3.5-5.1); Protein, Total 4.9 g/dL (5.8-8.1); Sodium 131 mmol/L (136-145)
[2019-11-30 19:50] LABS: Band 12 % (5-11); Lymphocytes 1 % (21-51); MDiff Complete? YES; Monocytes 2 % (0-10); Neutrophil 85 % (42-75); Platelet Morphology Comment Appears Decreased; RBC Morphology Normal
[2019-11-30 20:21] LABS: Bacteria/HPF 3+ HPF (None Seen); Bilirubin Negative (Negative); Clarity Turbid (Clear); Glucose, Urine (Dipstick) Normal (Negative); Leukocyte 500 Leu/uL (Negative); Nitrite Negative (Negative); Protein, Urine (Dipstick) 30 mg/dL (Neg-Trace); Squamous Epithelial 0-3 HPF (0-3); WBC/HPF Greater than 50 HPF (0-3)
[2019-11-30 20:23] LABS: Blood, Urine Trace (Negative)
--- NOTE | 2019-11-30 20:29 | CT ---
CT OF THE ABDOMEN AND PELVIS WITH IV CONTRAST INDICATION: Concern for infection within the abdomen and pelvis with an elevated white count COMPARISON: None FINDINGS: ABDOMEN: Lung bases: Clear Liver: No focal lesion. Gallbladder: Normal appearing. Pancreas: Normal. Adrenal glands: Normal. Spleen: Normal. Kidneys and ureters: There is a 3 mm nonobstructing calculus within the inferior pole of the right ki dney. Left kidney is normal-appearing. No hydronephrosis is demonstrated. Vasculature: There are moderate vascular calcifications seen involving the visualized vasculature. Lymph nodes:No lymphadenopathy. Free fluid in abdomen:No free fluid is evident. PELVIS: Small and large bowel: There are scattered colonic diverticula without evidence of active diverticuli tis. Appendix:Normal Bladder: Normal. Rectal and perirectal soft tissues:Normal. Reproductive structures: TURP defect of the prostate. Bilateral vasectomy clips. Free fluid in pelvis: No free fluid is evident. Lymphadenopathy pelvis: No lymphadenopathy is evident. Osseous structures: No acute osseous abnormality. No destructive osteolytic or osteoblastic lesion i s identified. There is scattered degenerative and osteoarthritic changes. Soft tissues:Normal. IMPRESSION: 1. No acute abnormality. 2. Right nephrolithiasis 3. Colonic diverticulosis.
--- NOTE | 2019-11-30 21:00 | ULT ---
RIGHT UPPER QUADRANT ULTRASOUND CLINICAL HISTORY: Sepsis with elevated LFTs. COMPARISON: CT the abdomen and pelvis dated November 30, 2019. FINDINGS: Liver:Normal echotexture without focal mass. Intrahepatic bile ducts: No intrahepatic or extrahepatic biliary dilation.; Common bile duct: 4.1 mm. Gallbladder: Mildly contracted Mcmanus's sign:None Main portal vein:Patent with hepatopedal flow. Pancreas:Visualized pancreas appears normal. Right kidney: Right kidney measures 12.2 x 5.9 x 5.9 cm. No focal renal lesion or hydronephrosis. T here is a tiny right renal cyst measuring 8 mm. There is perinephric edema seen surrounding the right kidney. When evaluating the prior CT evaluation. There is perinephric stranding bilaterally whi ch is symmetrical. This can be seen in older patients and is idiopathic. Additional findings: None. IMPRESSION: No acute abnormality. Right renal cyst
--- NOTE | 2019-11-30 21:18 | PDOC.FPRHP ---
- History of Present Illness Chief Complaint: Low blood pressure History of Present Illness: 74 yo M with history of Glaucoma, Macular Degeneration, Low testosterone, hypothyroidism, hyperlipidemia, high cholesterol, osteoarthritis, hypertension, and Hx of glioblastoma s/p craniotomy who presents for low blood pressure. Pt denies any fever or chills. Pt denies feeling bad or weak. Pt denies any headaches or vision changes. Denies any abdominal pain. Denies any pain with urination. Denies any burning with urination. Denies any increased urinary frequency. Denies any numbness or tingling. Pt recently had craniotomy for Glioblastoma and has difficulty remembering both recent and remote events. He states he believes he was sent over from Rehab for low blood pressure. ED Course: In the ED, he was found to have UTI and called sepsis for elevated WBC count, so Vanc and Zosyn were started. - Allergies/Adverse Reactions Allergies Allergy/AdvReac Type Severity Reaction Status Date / Time No Known Drug Allergies Allergy Verified 11/13/19 23:24 - Home Medications Medication Instructions Recorded Confirmed Type Atorvastatin Calcium [Lipitor] 10 mg PO HS 11/14/19 11/30/19 History Brinzolamide [Azopt 1% Ophth SUSP] 1 drop EA EYE BID 11/14/19 11/30/19 History Latanoprost/Pf [Latanoprost 0.005% 7.5 ml OP HS 11/14/19 11/30/19 History Eye Drop] Levothyroxine Sodium [Synthroid] 75 mcg PO DAILY 11/14/19 11/30/19 History Amlodipine [Norvasc] 5 mg PO BID tab 11/25/19 11/30/19 Rx Brimonidine Tartrate [Alphagan 1 drop EA EYE BID bot 11/25/19 11/30/19 Rx 0.2% Ophth Soln] Citalopram [CeleXA] 20 mg PO DAILY tab 11/25/19 11/30/19 Rx Docusate [Colace] 100 mg PO BID cap 11/25/19 11/30/19 Rx Enoxaparin Sodium [Lovenox] 40 mg SC 2100 syringe 11/25/19 11/30/19 Rx Lisinopril [Zestril] 20 mg PO DAILY tab 11/25/19 11/30/19 Rx Ondansetron [Zofran ODT] 4 mg PO Q6H PRN tab 11/25/19 11/30/19 Rx Pantoprazole [Protonix] 40 mg PO DAILY tab 11/25/19 11/30/19 Rx Polyethylene Glycol 3350 [Miralax] 17 gm PO DAILY pk 11/25/19 11/30/19 Rx Timolol Maleate [Timoptic 0.5% 1 drop EA EYE BID bot 11/25/19 11/30/19 Rx Ophth Soln] hydrALAZINE [Apresoline] 25 mg PO QID tab 11/25/19 11/30/19 Rx Dexamethasone [Decadron] 1 mg PO Q6HR #7 tab 11/26/19 11/30/19 Rx - History PMHx: Glaucoma, Macular Degeneration, Low testosterone, hypothyroidism, hyperlipidemia, high cholesterol, osteoarthritis, hypertension PSHx: Craniotomy-glioblastoma, Vasectomy, Lithotripsy, Prostatectomy, Tonsillectomy FHx: Noncontributory Social: Patient drinks socially, Patient denies drug use, Patient has no smoking history. - Review of Systems General: denies: fever/chills, weight/appetite/sleep changes, night sweats Eyes: denies: eye pain, vision changes ENT: denies: nasal congestion, rhinorrhea Respiratory: denies: cough, congestion, shortness of breath Cardiovascular: denies: chest pain, palpitation, edema, orthopnea Gastrointestinal: denies: nausea, vomiting, diarrhea, constipation, abdominal pain, GI bleeding Genitourinary: denies: incontinence, dysuria, polyuria Skin: denies: rashes, lesions, jaundice Musculoskeletal: denies: pain, tenderness, stiffness, swelling, arthritis/ arthralgias Neurological: denies: numbness, syncope, seizure, weakness Psychological: denies: anxiety, depression - Vital signs BP: 112/59 HR: 83 RR: 16 Tmax: 98.4 Pox: 99% on RA Wt: 66.68 kg - Physical Exam Constitutional: NAD, awake, alert and oriented -Constitutional: A&O x2 HEENT: normocephalic and atraumatic, PERRLA, EOMI, normal nasal mucosa, MMM, oropharynx clear Neck: supple, trachea midline Heart: RRR, normal S1/S2, no murmurs/rubs/gallops Lungs: CTAB, no respiratory distress, good air movement, no rales/rhonchi, no wheezing, no retractions Abdomen: soft, non-tender, bowel sounds present Musculoskeletal: normal structure, normal tone -Musculoskeletal: UE: 5/5 bilaterally, RLE: 4/5, LLE: 5/5 Neurological: CN II-XII intact, other (Cerebellar dyskinesia, MSK as noted above ) Skin: no rash/lesions Heme/Lymphatic: no unusual bruising or bleeding Psychiatric: normal mood and affect FMR H&P: Results - Labs Result Diagrams: 11/30/19 19:02 11/30/19 19:02 Lab results: WBC 25.9 thou/uL (4.8-10.8) H 11/30/19 19:02 Hgb 12.8 g/dL (14.0-18.0) L 11/30/19 19:02 Hct 38.5 % (42.0-52.0) L 11/30/19 19:02 MCV 97.0 fL (78.0-98.0) 11/30/19 19:02 Plt Count 114 thou/uL (130-400) L 11/30/19 19:02 Band Neuts % (Manual) 12 % (5-11) H 11/30/19 19:02 Sodium 131 mmol/L (136-145) L 11/30/19 19:02 Potassium 4.2 mmol/L (3.5-5.1) 11/30/19 19:02 Chloride 102 mmol/L (98-107) 11/30/19 19:02 Carbon Dioxide 23 mmol/L (23-31) 11/30/19 19:02 BUN 43 mg/dL (8.4-25.7) H 11/30/19 19:02 Creatinine 1.18 mg/dL (0.7-1.3) 11/30/19 19:02 Glucose 177 mg/dL (83-110) H 11/30/19 19:02 Lactic Acid 2.3 mmol/L (0.5-2.2) H 11/30/19 19:02 Calcium 7.8 mg/dL (7.8-10.44) 11/30/19 19:02 Total Bilirubin 1.0 mg/dL (0.2-1.2) 11/30/19 19:02 AST 81 U/L (5-34) H 11/30/19 19:02 ALT 156 U/L (8-55) H 11/30/19 19:02 Alkaline Phosphatase 116 U/L (40-110) H 11/30/19 19:02 Serum Total Protein 4.9 g/dL (5.8-8.1) L 11/30/19 19:02 Albumin 2.8 g/dL (3.4-4.8) L 11/30/19 19:02 Urine Ketones Negative mg/dL (Negative) 11/30/19 19:34 Urine Blood Trace (Negative) A 11/30/19 19:34 Urine Nitrite Negative (Negative) 11/30/19 19:34 Ur Leukocyte Esterase 500 Shyanne/uL (Negative) A 11/30/19 19:34 Urine RBC 7-10 HPF (0-3) A 11/30/19 19:34 Urine WBC Greater than 50 HPF (0-3) A 11/30/19 19:34 Ur Squamous Epith Cells 0-3 HPF (0-3) 11/30/19 19:34 Urine Bacteria 3+ HPF (None Seen) A 11/30/19 19:34 - Radiology Interpretation CT scan - head Status: image reviewed by me, report reviewed by me (Improving surrounding vasogenic edema at the L. parietal lobe resection cavity. Pneumocephalus is also improved. There is less L. to R. midline shift, now measuring approx 1.7 mm.) US - abdomen Status: image reviewed by me, report reviewed by me (No acute abnormality. R. Renal cyst) CT scan - abdomen Status: image reviewed by me, report reviewed by me (No acute abnormality. R. nephrolithiasis. Chronic diverticulosis) FMR H&P: A/P - Problem List (1) UTI (urinary tract infection) Current Visit: Yes Status: Acute (2) Hyponatremia Current Visit: No Status: Acute Code(s): E87.1 - HYPO-OSMOLALITY AND HYPONATREMIA (3) Glaucoma Current Visit: No Status: Chronic Code(s): H40.9 - UNSPECIFIED GLAUCOMA (4) HLD (hyperlipidemia) Current Visit: No Status: Chronic Code(s): E78.5 - HYPERLIPIDEMIA, UNSPECIFIED (5) HTN (hypertension) Current Visit: No Status: Chronic Code(s): I10 - ESSENTIAL (PRIMARY) HYPERTENSION Qualifiers: Hypertension type: essential hypertension Qualified Code(s): I10 - Essential (primary) hypertension (6) Hypothyroidism Current Visit: No Status: Chronic Code(s): E03.9 - HYPOTHYROIDISM, UNSPECIFIED - Plan 74 yo M with history of Glaucoma, Macular Degeneration, Low testosterone, hypothyroidism, hyperlipidemia, high cholesterol, osteoarthritis, hypertension, and Hx of glioblastoma s/p craniotomy who presents for low blood pressure. 1. UTI UA: 3+ Bacteria, 500 Leukocytes, > 50 WBC * ED- Vanc and Zosyn; however d/c * Called Sepsis, but there was no tachycardia or fever noted. Pt was not found to be hypotensive in ED. * Ordered Rocephin * Will monitor for signs and symptoms, currently has none * UCx pending 2. Mild Hyponatremia Na: 131 * Will monitor on CMP * Pt had issues with hyponatremia during recent hospitlization. Nephro was consulted and that to be due to inappropriate SIADH 3. Leukocytosis with Bandemia WBC: 25.9 with bands: 12 Likely due to above * Will trend with CBC * Currently on steroids due to brain surgery, which can play a roll in elevation * BCx ordered 4 Transaminitis AST: 81, ALT: 156, Alk Phos: 116 * Ordered Hepatitis Panel * Ordered Abdominal US * Will monitor on CMP 5. HTN * Will monitor BP. Will hold home medications at this time due to concern for Hypotension 6. HLD * Will continue home med: Atorvastatin 7. Glaucoma/Macular Degeneration * Will continue home meds: Lantoprost, Dorzalomide, Brimonidine 8. Hypothyroidism * Will continue home med: Levothyroxine Code Status: Full Diet: HHLSo Activity: Ambulate with Assist DVT PPx: Lovenox GI PPx: Pantoprazole PCP: [facility] Dispo: Medical inpt, LOS < 48H. Likely d/c home tomorrow. FMR H&P: Upper Level - Pertinent history I was present with the international manager, Dr. Tha Medeiros during the HPI. I scribed the above document. I made edits as needed. See above. - Pertinent findings General: Pt resting comfortably in bed, no acute distress, A&Ox2, did not know date Cardio: RRR, no murmurs or gallops Resp: CTA-B, no wheezes or crackles. Abdomen: non-distended, NTTP, munguia negative. No guarding or rebound. No CVA tenderness Ext: Moves all ext. - Plan Date/Time: 11/30/192115 I, Maximiliano Montoya, PGY-3, have evaluated this patient and agree with findings/ plan as outlined by international manager resident. Pertinent changes/additions are listed here. I made edits to the plan above. See above for detailed plan. At this time there was concern for sepsis. Only pt WBC count was elevated. there is no other document vital signs or labs that meet SIRS criteria. Pt BP mildly low but stable. Unsure how hypotensive pt Bp was at residential. At this time pt found to have likely UTI. Will tx with Rocephin at this time. Will get urine culture. Pt also has elevation in Alk phos, AST/ALT from prior visits. Will order hepatitis panel. CT scan did not show any abnormality. Will trend with CMP. Pt in rehab after having recent craniotomy for glioblastoma. Will plan on return to rehab.
[2019-11-30 22:00] LABS: Lactic Acid 1.4 mmol/L (0.5-2.2)
[2019-11-30] MEDS ORDERED: Ondansetron PF 4 MG/2 ML Vial IVP PRN (22:58)
[2019-11-30] MEDS ORDERED: Acetaminophen 325 MG TAB PO PRN (22:58)
[2019-11-30] MEDS ORDERED: Ondansetron ODT 4 MG TAB SL PRN (22:58)
[2019-11-30] MEDS: Sodium Chloride 0.9% 1,000 ML IV SCH (23:15)
[2019-11-30 23:36] VITALS: BMI 26.2
[2019-12-01] MEDS ORDERED: Senokot S 8.6-50 MG TAB PO PRN (01:21)
[2019-12-01] MEDS ORDERED: Acetaminophen 650 MG Suppository PR PRN (01:21)
[2019-12-01] MEDS ORDERED: Piperacillin/Tazobactam 4.5 GM in Sodium Chloride 0.9% 100 ML IVPB SCH (02:00)
[2019-12-01] MEDS: Sodium Chloride 0.9% 1,000 ML IV SCH ×2 (02:35→09:41)
[2019-12-01] MEDS: cefTRIAXone\\ROCEPHIN 1 GM in Sodium Chloride 0.9% 100 ML IVPB SCH ×2 (03:30→04:32)
[2019-12-01] MEDS: Dexamethasone 1 MG TAB PO SCH ×2 (04:32→11:23)
[2019-12-01 05:24] LABS: #Lymphocytes 0.7 thou/uL (1.20-3.40); #Monocytes 0.7 thou/uL (0.11-0.59); #Neutrophils 16.1 thou/uL (1.40-6.50); %Eosinophils 0.2 % (0.0-10.0); %Lymphocytes 4.2 % (21.0-51.0); %Monocytes 3.7 % (0.0-10.0); %Neutrophils 91.9 % (42.0-75.0); Hemoglobin 11.3 g/dL (14.0-18.0); Mean Corpuscular HGB CONC 33.4 g/dL (32.0-36.0); Mean Corpuscular Hemoglobin 32.3 pg (27.0-31.0); Mean Corpuscular Volume 96.8 fL (78.0-98.0); Mean Platelet Volume 9.2 fL (7.4-10.4); Platelet Count 101 thou/uL (130-400); RBC Distribution Width 11.9 % (11.5-14.5); White Blood Cell (WBC) Count 17.5 thou/uL (4.8-10.8)
[2019-12-01 05:36] LABS: ALT (SGPT) 128 U/L (8-55); AST (SGOT) 46 U/L (5-34); Albumin 2.5 g/dL (3.4-4.8); Alkaline Phosphatase 97 U/L (40-110); Anion Gap 9 mmol/L (10-20); BUN (Urea Nitrogen) 27 mg/dL (8.4-25.7); Bilirubin, Total 0.8 mg/dL (0.2-1.2); Calc. Creatinine Clearance 92 mL/min (70-130); Calcium 7.5 mg/dL (7.8-10.44); Carbon Dioxide 22 mmol/L (23-31); Chloride 106 mmol/L (98-107); Estimated GFR-MDRD Greater than 90; Glucose 147 mg/dL (83-110); Potassium 3.9 mmol/L (3.5-5.1); Protein, Total 4.5 g/dL (5.8-8.1); Sodium 133 mmol/L (136-145)
[2019-12-01 05:55] LABS: HBCM Index 0.06 S/CO (0-0.79); HBSAg Index 0.22 S/CO (0-0.99); Hep A IgM AB Non-Reactive (NonReactive); Hep A IgM S/CO 0.18 S/CO (0-0.79); Hep B Surf Ag Non-Reactive S/CO (NonReactive); Hep C IgG Ab Non-Reactive (NonReactive); Hep C Index 0.09 S/CO (0-0.79); Hepatitis B Core IgM Abs Non-Reactive (NonReactive)
[2019-12-01] MEDS ORDERED: Levothyroxine Sodium 75 MCG TAB PO SCH (06:00)
--- NOTE | 2019-12-01 06:12 | PDOC.FM ---
- Subjective Subjective: Patient reports he feels much better this AM. Denies any lightheadedness, fever/ chills or dysuria. States he is ready to clear the infection and get back to rehab to work on his recovery. - Objective MAR Reviewed: Yes Vital Signs & Weight: Vital Signs (12 hours) Temp Pulse Resp BP Pulse Ox 12/01/19 05:52 98.3 F 83 18 116/67 97 11/30/19 23:56 96 11/30/19 23:36 98.6 F 86 20 134/71 96 11/30/19 18:50 98.6 F 86 20 134/71 96 Weight Weight 75.75 kg Result Diagrams: 12/01/19 05:04 12/01/19 05:04 Phys Exam - Physical Examination Constitutional: NAD HEENT: moist MMs Neck: supple, full ROM Respiratory: no wheezing, no rales, no rhonchi, clear to auscultation bilateral Cardiovascular: RRR, no significant murmur Neurological: non-focal, moves all 4 limbs Psychiatric: normal affect, A&O x 3 Skin: no rash, normal turgor, cap refill <2 seconds Dx/Plan (1) Anemia Code(s): D64.9 - ANEMIA, UNSPECIFIED Status: Chronic (2) UTI (urinary tract infection) Status: Acute (3) Glaucoma Code(s): H40.9 - UNSPECIFIED GLAUCOMA Status: Chronic (4) HLD (hyperlipidemia) Code(s): E78.5 - HYPERLIPIDEMIA, UNSPECIFIED Status: Chronic (5) HTN (hypertension) Code(s): I10 - ESSENTIAL (PRIMARY) HYPERTENSION Status: Chronic Qualifiers: Hypertension type: essential hypertension Qualified Code(s): I10 - Essential (primary) hypertension (6) Hypothyroidism Code(s): E03.9 - HYPOTHYROIDISM, UNSPECIFIED Status: Chronic - Plan Plan: 74 yo M with history of Glaucoma, Macular Degeneration, Low testosterone, hypothyroidism, hyperlipidemia, high cholesterol, osteoarthritis, hypertension, and Hx of glioblastoma s/p craniotomy who presents for low blood pressure. 1. UTI UA: 3+ Bacteria, 500 Leukocytes, > 50 WBC * ED- Vanc and Zosyn; however d/c & started rocephin. * Called Sepsis, but there was no tachycardia or fever noted. Pt was not found to be hypotensive in ED. * Continue Rocephin * UCx & blood Cxs pending 2. Mild Hyponatremia, improving Na: 131 on admission & up to 133 this AM * Will continue to monitor on CMP * Pt had issues with hyponatremia during recent hospitalization. 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 Leukocytosis with Bandemia, improving WBC: 25.9 with bands: 12--> down to 17.5 this AM Likely due to UTI as above * Will trend with CBC * Currently on steroids due to brain surgery, which can play a roll in elevation * BCx ordered 4 Transaminitis, improving AST: 81, ALT: 156, Alk Phos: 116 * Hepatitis Panel negative. * Ordered Abdominal US * Will monitor on CMP 5. HTN * Will monitor BP. Will hold home medications for now & resume as tolerated by the patient. 6. HLD * Will continue home med: Atorvastatin 7. Glaucoma/Macular Degeneration * Will continue home meds: Lantoprost, Dorzalomide, Brimonidine 8. Hypothyroidism * Will continue home med: Levothyroxine 9. Normocytic Anemia: - Hgb stable at 11.3 this AM. - Will continue to monitor. Patient needs a workup as an outpatient. 10. Hyperglycemia: - BG elevated at 147 this AM. - Likely 2/2 steroids he is taking per NS recs post-operatively. - Will add mild SSI to keep BG levels between 140-180 while inpatient. Code Status: Full Diet: HHLSo Activity: Ambulate with Assist DVT PPx: Lovenox GI PPx: Pantoprazole IVFs: None Abx: Rocephin PCP: [facility] Dispo: Medical inpt, LOS < 48H. Likely d/c back to [facility] rehab today on rocephin. Addendum - Attending - Attending Attestation Date/Time: 12/01/19 [id number] I personally evaluated the patient and discussed the management with Dr. Menezes. I agree with the History, Examination, Assessment and Plan documented above with any addition or exceptions noted below.
[2019-12-01] MEDS ORDERED: Vancomycin HCl 1 GM in Premix Bag 1 BAG IVPB SCH (07:00)
[2019-12-01] MEDS ORDERED: Brimonidine Tartrate 0.2% Ophth Soln 5 ml Bottle EA EYE SCH (09:00)
[2019-12-01] MEDS ORDERED: Amlodipine 5 MG TAB PO SCH (09:00)
[2019-12-01] MEDS ORDERED: Brinzolamide 1% Ophth SUSP 10 ml Bottle EA EYE SCH (09:00)
[2019-12-01] MEDS ORDERED: Lisinopril 20 MG TAB PO SCH (09:00)
[2019-12-01] MEDS ORDERED: Polyethylene Glycol 3350 17 GM Packet PO SCH (09:00)
[2019-12-01] MEDS ORDERED: hydrALAZINE 25 MG TAB PO SCH (09:00)
[2019-12-01] MEDS ORDERED: Docusate 100 MG CAP PO SCH (09:00)
[2019-12-01] MEDS ORDERED: Timolol 0.5% Ophth Soln 5 ml Bottle EA EYE SCH (09:00)
[2019-12-01] MEDS ORDERED: Citalopram 20 MG TAB PO SCH (09:00)
[2019-12-01] MEDS ORDERED: HumaLOG 300 UNITS/3 ML VIAL SC PRN (10:01)
[2019-12-01] MEDS ORDERED: Dextrose 5% in Water 1,000 ML IV PRN (10:01)
[2019-12-01] MEDS ORDERED: Dextrose 50% Abboject 50 ML SYRINGE SLOW IVP PRN (10:01)
[2019-12-01 14:26] VITALS: BP 113/68; TEMP 98.9
[2019-12-01] MEDS ORDERED: Latanoprost 0.005% Ophth Soln 2.5 ml Bottle EA EYE SCH (21:00)
[2019-12-01] MEDS ORDERED: Atorvastatin Calcium 10 MG TAB PO SCH (21:00)
[2019-12-01] MEDS ORDERED: Enoxaparin Sodium 40 MG/0.4 ML SYRINGE SC SCH (21:00)
--- NOTE | 2019-12-02 10:53 | DIS ---
DATE OF ADMISSION: 11/30/2019 DATE OF DISCHARGE: 12/01/2019 RESIDENT: Kalina Menezes MD ADMITTING ATTENDING: Feliciano Ortiz MD DISCHARGE ATTENDING: Ruslan Dolan MD CONSULTS: None. PROCEDURES: 1. Brain CT on 11/30/2019, which showed improving surrounding vasogenic edema at the left parietal lobe resection cavity. Pneumocephalus has also improved. There is left to right midline shift, now measuring approximately 1.7 mm. 2. Abdominal ultrasound on 11/30/2019, which showed a small 8 mm right renal cyst, otherwise no acute abnormalities. 3. Abdomen/pelvis CT on 11/30/2019, which showed colonic diverticulosis and an approximate 3 mm nonobstructing calculus within the inferior pole of the right kidney with a normal-appearing left kidney and no hydronephrosis. DISCHARGE DIAGNOSES: 1. Sepsis secondary to urinary tract infection. 2. Transaminitis likely secondary to #1. SECONDARY DIAGNOSES: 1. Mild hyponatremia secondary to suspected syndrome of inappropriate antidiuretic hormone secretion. 2. Hypertension. 3. Hyperlipidemia. 4. Glaucoma/macular degeneration. 5. Hypothyroidism. 6. History of glioblastoma, status post craniectomy. 7. Osteoarthritis. DISCHARGE MEDICATIONS: 1. Synthroid 75 mcg p.o. daily. 2. Atorvastatin 10 mg p.o. at bedtime. 3. Brinzolamide one drop in each eye b.i.d. 4. Latanoprost 7.5 mL OP at bedtime. 5. Amlodipine 5 mg p.o. b.i.d. 6. Brimonidine tartrate one drop in each eye b.i.d. 7. Citalopram 20 mg p.o. daily. 8. Docusate 100 mg p.o. b.i.d. 9. Lovenox 40 mg subcu daily. 10. Hydralazine 25 mg p.o. q.i.d. 11. Lisinopril 20 mg p.o. daily. 12. Ondansetron 4 mg p.o. q.6 hours p.r.n. 13. Protonix 40 mg p.o. daily. 14. MiraLAX 17 g p.o. daily. 15. Timolol maleate one drop in each eye b.i.d. 16. Dexamethasone 1 mg p.o. q.6 hours. #7 tablets. 17. Rocephin 1 g IV q.24 hours, #6. 18. Sennosides/docusate sodium two tabs p.o. b.i.d. p.r.n. DISCONTINUED MEDICATIONS: None. HOSPITAL COURSE: The patient is a 74-year-old gentleman with a past medical history significant for a recent hospitalization for surgical resection of a glioblastoma, hypertension, and hypothyroidism, who presented to [facility] Emergency Department from [facility] for low blood pressure. Prior to being sent to the ED, an x-ray was obtained, which was within normal limits, but upon arrival to the emergency department, the patient was noted to be mildly hypotensive with a blood pressure of 104/60. He was also noted to have a low-grade elevated temperature of 100.3 taken rectally. Routine labs were obtained including a CBC, CMP, lactate, and UA, which were notable for a significantly elevated white blood cell count of 25.9 with 85% neutrophils and 12% bands, sodium level 131, BUN and creatinine of 61 and 1.18, lactate of 2.3, an AST and ALT of 81 and 156, and an alkaline phosphatase of 116. Lastly, his UA was obtained via straight cath and was noted to be turbid with trace blood, 500 leukocyte esterase, 7 to 10 RBCs, greater than 50 WBCs, and 3+ bacteria. Due to his elevated white count with bandemia and his UA, the patient was determined to be septic 2/2 a UTI in the ED and was given IV vancomycin and Zosyn and admitted to the medical floor for continued IV antibiotics overnight. The following morning, the patient was noted to be feeling much better with improvement of his blood pressures and all significant laboratories had downtrended with the exception of his sodium, which increased slightly to 133. Thus, due to the fact that the patient was to be discharged back to [facility] for continued rehabilitation, the patient was cleared for discharge back to [facility] where IV antibiotics could be continued pending urine culture results and sensitivities. DISPOSITION: Stable. DISCHARGE INSTRUCTIONS: 1. Location: [facility]. 2. Diet: Heart healthy, low-sodium diet. 3. Activity: As tolerated, no restrictions. 4. Followup: The patient was instructed to follow up with his primary care provider, Dr. Salazar Esquivel within 1 week of being discharged from [facility]. Job ID: [id number] MTDD
--- NOTE | 2019-12-03 21:32 | PQF ---
MARY AGUILLON GABRIEL MD [id number] CLINICAL DOCUMENTATION CLARIFICATION FORM: POST DISCHARGE Addendum to original discharge summary date: ____ Late entry note date: __ DATE: 12/03/18 ATTN: Ruslan Hoff Please exercise your independent, professional judgment in responding to the clarification form. Clinical indicators are provided on the bottom of this form for your review Can you please further clarify if Sepsis is ruled in or ruled out? Sepsis [ ] Ruled in diagnosis [ ] Continue to treat [ ] Resolved [ ] Ruled out diagnosis [ ] Cannot rule out diagnosis [ ] Other diagnosis [ ] Unable to determine In addition, please specify: Present on Admission (POA): [ ] Yes [ ] No [ ] Unable to determine For continuity of documentation, please document condition throughout progress notes and discharge summary. Thank You. CLINICAL INDICATORS - SIGNS / SYMPTOMS / LABS ED Provider pg.4- Sepsis H and P pg.1- low blood pressure H and P pg.1- He was found to have UTI and called sepsis for elevated WBC count PN pg.5- leukocytosis with bandemia WBC 25.9 with bands:12 Microbiology 11/30- Urine culture: Klebsiella pneumoniae RISK FACTORS UTI- H and P pg.1 74 years old- H and P pg.1 Hypertension- H and P pg.1 low blood pressure- H and P pg.1 TREATMENTS IV Fluids- JAN IV Antibiotics- JAN Abdomen/Pelvis CT 11/30 Abdomen ultrasound- 11/17 Urine culture- Microbiology (This form is maintained as a part of the permanent medical record) 2014 [employer]. All Rights Reserved Song [email or web address] [not provided] Reassign to resident. JUAN
--- NOTE | 2019-12-04 02:48 | PQF ---
MARY AGUILLON GABRIEL MD [id number] CLINICAL DOCUMENTATION CLARIFICATION FORM: POST DISCHARGE Addendum to original discharge summary date: ____ Late entry note date: __ DATE: 12/04/19 ATTN: Ruslan Hoff Please exercise your independent, professional judgment in responding to the clarification form. Clinical indicators are provided on the bottom of this form for your review Can you please further clarify the condition being treated and evaluated? Please check appropriate box(s): [ ] Vasogenic edema [ ] No vasogenic edema [ ] Abnormal CT Brain findings [ ] Other diagnosis [ ] Unable to determine In addition, please specify: Present on Admission (POA): [ ] Yes [ ] No [ ] Unable to determine For continuity of documentation, please document condition throughout progress notes and discharge summary. Thank You. CLINICAL INDICATORS - SIGNS / SYMPTOMS / LABS HP pg1- recently had craniotomy for glioblastoma PN pg3 12/01/19- Steroids he is taking per NS recs post-operatively BRAIN CT 11/30/19- Improving surrounding vasogenic edema at the left parietal lobe resection cavity BRAIN CT 11/30/19- There is less left to right midline shift, now measuring approx 1.7mm. RISK FACTORS Hx of glioblastoma s/p craniotomy- H and P pg.1 Hyperlipidemia- H and P pg.1 Hypertension- H and P pg.1 74 year old- H and P pg.1 TREATMENTS: Decadron 1mg PO Q6HR SHAKIR-JAN CT Brain 11/30 IV fluids- JAN (This form is maintained as a part of the permanent medical record) 2014 [employer]. All Rights Reserved Song [email or web address] [not provided] reassign to resident. JUAN
--- NOTE | 2019-12-06 10:56 | EKG ---
Test Reason : SEPSIS Blood Pressure : / mmHG Vent. Rate : 084 BPM Atrial Rate : 084 BPM P-R Int : 124 ms QRS Dur : 086 ms QT Int : 390 ms P-R-T Axes : 066 043 030 degrees QTc Int : 460 ms Poor data quality, interpretation may be adversely affected Normal sinus rhythm Normal ECG Confirmed by CARO MITTAL, ASHLEY Figueroa ([id number]), book editor RAMONA GONZALEZ ([id number]) on 12/06/2019 10:56:46 AM Referred By: Confirmed By:ASHLEY ELIZONDO MD
== END 2019-12-01 14:55 | DRG 872 ==
LOC: ERS 18:34 → T4-B 22:51
PROVIDERS: ADMIT Family Medicine; ATTEND Family Medicine
DX: A41.9 Sepsis, unspecified organism (principal); N39.0 Urinary tract infection, site not specified; E22.2 Syndrome of inappropriate secretion of antidiuretic hormone; D64.9 Anemia, unspecified; H40.9 Unspecified glaucoma; E78.5 Hyperlipidemia, unspecified; I10 Essential (primary) hypertension; E03.9 Hypothyroidism, unspecified; H35.30 Unspecified macular degeneration; E78.00 Pure hypercholesterolemia, unspecified; M19.90 Unspecified osteoarthritis, unspecified site; R74.8 Abnormal levels of other serum enzymes; R73.9 Hyperglycemia, unspecified; T38.0X5A Adverse effect of glucocorticoids and synthetic analogues, initial encounter; Z85.841 Personal history of malignant neoplasm of brain; Z79.890 Hormone replacement therapy; Z79.899 Other long term (current) drug therapy; Z98.52 Vasectomy status
CPT/HCPCS: 36415; 36416; 51701; 70450; 74177; 76705; 80074; 83605; 87040; 87077; 87086; 87186; 93005; 96361; 96365; J0696; J2543; J3370; J3490; J8540; Q9967

== ENCOUNTER 2020-03-22 12:41 | Outpatient (CLI) | payer MEDICARE ==
[~2020-03-22 12:41] MED LIST changes: -Iopamidol-370 76% 500 ML 1 ML ONE; +Magnevist 469MG/ML 20 ML VIAL ONE
--- NOTE | 2020-03-22 14:29 | MRI ---
MRI BRAIN WITH AND WITHOUT CONTRAST: DATE: 03/22/2020 HISTORY: 74-year-old male with ICD-10: C 71.3 glioblastoma, status post resection and chemotherapy and radiati on therapy. Restaging. COMPARISON: 12/26/2019 TECHNIQUE: Multiplanar, multisequence MRI of the brain performed pre- and post-IV injection of gadolinium based contrast agent. 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 There is gliosis and hemosider in stain around this cavity, especially posteriorly. The size of the cystic cavity has slightly decreased since the prior MRI. Again noted is the irregular parenchymal enhancement along the anterior portion of this cavity. The m ost posterior and lateral component of this enhancement, with nodular configuration, has slightly increased in size growing from previous dimensions of approximately 0.8 x 0.5 x 0.6 cm previously, to current dimensions of approximately 1.1 x 0.5 x 1 cm. Located anterior and superior to the postsurgical cystic cavity, the ring-enhancing left paramedian s atellite tumor has grown from previous dimensions of approximately 1.1 x 1.1 x 1.2 cm to current dimensions of 1.5 x 1.2 x 1.6 cm. The previously mentioned 1.7 x 1.9 cm heterogeneously enhancing irregularly-shaped region of signal a bnormality located posterior and inferior to the post surgical cystic cavity, has significantly decreased in size. It has become ill-defined such that measurements are difficult to obtain. It is ap proximately 1.4 x 1.4 cm, and enhances much less intensely. This probably represents postsurgical granulation tissue. There is currently a much larger, contiguous, broader region of intra-axial T2 hyperintensity from th e left cerebral vertex superiorly, down to the mid portions of the parietal lobe, most of which probably represents post radiation changes of the deep and subcortical white matter. Because these ar eas of T2 hyperintense signal abnormality encompass all of the focal lesions described above, it is difficult to determine how much vasogenic edema is being caused by the viable neoplastic tumor materi al. No new neoplastic tumor deposits are identified. No obstructive hydrocephalus, mass effect, midline shift, new hemorrhage, or acute infarction. 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 2) focal nodular small enhancement at the anterior portion of parenchyma lining that cystic cavity gaviria s slightly grown, which could either represent viable neoplastic tumor material, or significantly less likely radiation necrosis. 3) the ring-enhancing small mass at the left precentral gyrus has slightly grown, consistent with a s atellite viable tumor focus. 4) the heterogeneously enhancing lesion and signal abnormality in the left parietal lobe abutting the inferior aspect of the postsurgical cystic cavity has involuted, indicating that it represents postsurgical granulation tissue 5) much more extensive left cerebral intra-axial T2 hyperintensity is present now compared to prior M RI. The majority of this probably represents post radiation changes. This makes it difficult to determine the degree of vasogenic edema caused by the 2 small foci of viable tumor mentioned above.
== END 2020-03-22 12:42 | disposition home or self-care (01) ==
LOC: MRI 12:41
PROVIDERS: ATTEND Radiology Radiation Oncology
DX: Z48.3 Aftercare following surgery for neoplasm (principal); C71.3 Malignant neoplasm of parietal lobe; G93.89 Other specified disorders of brain; R90.89 Other abnormal findings on diagnostic imaging of central nervous system; Z98.890 Other specified postprocedural states; Z92.21 Personal history of antineoplastic chemotherapy; Z92.3 Personal history of irradiation
CPT/HCPCS: 70553; A9579

== ENCOUNTER 2020-08-09 12:32 | Outpatient (CLI) | payer MEDICARE ==
--- NOTE | 2020-08-09 14:54 | MRI ---
MRI BRAIN WITH AND WITHOUT CONTRAST: DATE: 08/09/2020. HISTORY: A 75-year-old male with ICD-10: C71.3, glioblastoma, status post chemotherapy, radiation therapy, re staging MRI. COMPARISON: 05/20/2020. TECHNIQUE: Multiple sequences obtained in axial, sagittal, and coronal planes; pre and post IV injection of gado linium-based contrast agent. FINDINGS: Again noted are the left parietal craniotomy changes, deep to which there is a moderately large posts urgical porencephalic cyst in the left parietal lobe. Abutting this and extending out a significant distance from this, there are large patchy regions of T2 and FLAIR hyperintensity in the left parieta l lobe, some of it involving the upper portion of the left occipital lobe. A large portion of this i nvolves the left pre- and post-central gyri, left superior frontal gyrus, and paracentral lobule. So me of this represents encephalomalacia and gliosis, as demonstrated by the ex vacuo dilation of the t rigone of the left lateral ventricle. Some of it could represent vasogenic edema, but the appearance is unchanged since 05/20/2020. There is small chronic T2 hyperintense signal abnormality involving ri ght corticospinal track, involving posterior limb of right internal capsule and right cerebral pedunc le. This is unchanged. There are also chronic ischemic white matter changes of a moderate degree in the right cerebral hemisphere, less severe than on the left. o obstructive hydrocephalus, mass effec t, midline shift, or restricted diffusion. There is patchy intraaxial enhancement along the anterior margin of the postsurgical porencephalic cy st described above. This has apparently slightly decreased since the previous MRI. Anterior to this, in the left anterior paramedian upper frontal lobe parenchyma near the vertex, the previously described ring-enhancing lesion has become slightly smaller. The degree of enhancement in its anterior medial portion has significantly decreased. The enhancement of the left lateral portio n has slightly decreased. The lesion currently measures approximately 1.4 x 0.9 x 1.2 cm. IMPRESSION: 1. 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 2. The irregular nodular enhancement in the parenchyma abutting the anterior portion of that porence phalic cystic cavity has slightly decreased. This could either represent viable neoplastic tumor mat erial or radiation necrosis. 3. The ring-enhancing small mass at the left upper paramedian frontal lobe brain parenchyma has also slightly decreased in size. This could also represent either neoplastic tumor material or radiation necrosis. 4. Extensive T2-hyperintense regions involving much of the left parietal, frontal, and occipital lob es is unchanged. This probably represents a combination of accelerated white matter disease due to e xternal beam irradiation, and vasogenic edema. This is unchanged. KAREN Zarco POS: MILAN
== END 2020-08-09 12:33 | disposition home or self-care (01) ==
LOC: SCSMRI 12:32
PROVIDERS: ATTEND Radiology Radiation Oncology
DX: C71.3 Malignant neoplasm of parietal lobe (principal); R91.8 Other nonspecific abnormal finding of lung field; Z98.890 Other specified postprocedural states
CPT/HCPCS: 70553

== ENCOUNTER 2021-03-02 11:28 | Outpatient (CLI) | payer MEDICARE ==
[2021-03-02] MEDS ORDERED: Magnevist 469MG/ML 20 ML VIAL ONE (13:13)
== END 2021-03-02 11:29 | disposition home or self-care (01) ==
LOC: MRI 11:28
PROVIDERS: ATTEND Radiology Radiation Oncology
DX: C71.9 Malignant neoplasm of brain, unspecified (principal); Z98.890 Other specified postprocedural states; Z92.3 Personal history of irradiation; Z92.21 Personal history of antineoplastic chemotherapy
CPT/HCPCS: 70553; A9579

== ENCOUNTER 2021-12-02 07:45 | Inpatient (IN) | payer MEDICARE ==
[2021-12-06] MEDS ORDERED: Fentanyl 250 MCG/5 ML VIAL ONE (06:23)
[2021-12-06] MEDS ORDERED: Thrombin 5000 UNITS/5 ML VIAL ONE (06:40)
[2021-12-06] MEDS ORDERED: Lidocaine 0.5%/Epinephrine 1:200,000 50 ml Vial ONE (06:40)
[2021-12-06] MEDS ORDERED: Bacitracin Zinc Ointment 30 gm TUBE ONE (06:40)
[2021-12-06] MEDS ORDERED: Midazolam HCl 2 mg/2 ml Vial ONE (07:26)
[2021-12-06] MEDS ORDERED: ceFAZolin 2 GM/DEX 5% 100 ML BAG ONE ×2 (07:26→16:01)
[2021-12-06] MEDS ORDERED: ePHEDrine 50 MG/ML VIAL ONE (07:53)
[2021-12-06] MEDS ORDERED: Glycopyrrolate 0.2 MG/ML 5 ML SYRINGE ONE (07:53)
[2021-12-06] MEDS ORDERED: PHENYLEPHRINE-NS 100 MCG/ML 10 ML SYRINGE ONE (07:53)
[2021-12-06] MEDS ORDERED: PROPOFOL 200 MG/20 ML VIAL ONE (07:53)
[2021-12-06] MEDS ORDERED: Lidocaine 1% PF 5 ML VIAL ONE (07:53)
[2021-12-06] MEDS ORDERED: Dexamethasone 20 MG/5 ML VIAL ONE (07:53)
[2021-12-06] MEDS ORDERED: Ondansetron PF 4 MG/2 ML Vial ONE (07:53)
[2021-12-06] MEDS ORDERED: Rocuronium Bromide 10 MG/ML (10ML VIAL) ONE (07:53)
[2021-12-06] MEDS ORDERED: levETIRAcetam 1,000 MG in Sodium Chloride 0.9% 100 ML IVPB SCH (08:30)
[2021-12-06] MEDS ORDERED: levETIRAcetam in NS 100 ML ONE (08:54)
[2021-12-06] MEDS ORDERED: levETIRAcetam in NS 100 ML IVPB SCH (09:00)
[2021-12-06] MEDS ORDERED: SUGAMMADEX SODIUM 200 MG/2 ML VIAL ONE (10:16)
[2021-12-06] MEDS ORDERED: Promethazine HCl 25 MG/ML VIAL IM PRN ×2 (10:42→11:04)
[2021-12-06] MEDS ORDERED: Acetaminophen 325 MG TAB PO PRN (10:42)
[2021-12-06] MEDS ORDERED: HYDROcodone/Acetaminophen 7.5/325 mg Tablet PO PRN (10:42)
[2021-12-06] MEDS ORDERED: Morphine 2 MG/ML VIAL SLOW IVP PRN (10:42)
[2021-12-06] MEDS ORDERED: hydrALAZINE 20 MG/ML VIAL SLOW IVP PRN (10:42)
[2021-12-06] MEDS: Sodium Chloride 0.9% 1,000 ML IV SCH (10:45)
[2021-12-06] MEDS ORDERED: Polyethylene Glycol 3350 17 GM Packet PO PRN (10:55)
[2021-12-06] MEDS ORDERED: Senokot S 8.6-50 MG TAB PO PRN (10:55)
[2021-12-06] MEDS ORDERED: niCARdipine 25 MG in Sodium Chloride 0.9% 250 ML 240 ML IVPB SCH (11:00)
[2021-12-06] MEDS ORDERED: Acetaminophen/Codeine 30-300mg Tablet PO PRN (11:02)
[2021-12-06] MEDS ORDERED: Ondansetron HCl/PF 4 MG/2 ML Vial IVP PRN (11:04)
[2021-12-06] MEDS ORDERED: Promethazine HCl 25 MG/ML VIAL IVPB PRN (11:04)
[2021-12-06] MEDS ORDERED: Morphine 4 MG/ML VIAL SLOW IVP PRN (11:07)
[2021-12-06] MEDS ORDERED: Dexamethasone 4 mg/ml Vial ONE ×2 (12:37→18:24)
[2021-12-06] MEDS: Dexamethasone 4 mg/ml Vial SLOW IVP SCH ×2 (12:38→18:26)
[2021-12-06] MEDS: ceFAZolin 2 GM/Dextrose 50 ML 2 GM in Premix Bag 1 BAG IVPB SCH (16:35)
[2021-12-06] MEDS ORDERED: levETIRAcetam 500 MG in Sodium Chloride 0.9% 100 ML IVPB SCH (21:00)
[2021-12-06] MEDS ORDERED: Non-Formulary Item 1 EACH (Latanoprost/Pf [Latanoprost 0.005% Eye Drop] 7.5 ML Drops) OP SCH (21:00)
[2021-12-06] MEDS: levETIRAcetam in NS 500 MG in Premix Bag 1 BAG IVPB SCH (21:23)
[2021-12-06] MEDS: Timolol 0.5% Ophth Soln 5 ml Bottle EA EYE SCH (21:43)
[2021-12-06] MEDS: Brinzolamide 1% Ophth SUSP 10 ml Bottle EA EYE SCH (21:44)
[2021-12-06] MEDS: Latanoprost 0.005% Ophth Soln 2.5 ml Bottle EA EYE SCH (21:44)
[2021-12-07] MEDS: Sodium Chloride 0.9% 1,000 ML IV SCH ×2 (00:14→07:43)
[2021-12-07] MEDS: Dexamethasone 4 mg/ml Vial SLOW IVP SCH ×2 (00:14→06:06)
[2021-12-07] MEDS: ceFAZolin 2 GM/Dextrose 50 ML 2 GM in Premix Bag 1 BAG IVPB SCH (00:28)
[2021-12-07 03:29] LABS: #Lymphocytes 0.5 thou/uL (1.20-3.40); #Monocytes 0.4 thou/uL (0.11-0.59); #Neutrophils 12.1 thou/uL (1.40-6.50); %Basophils 0.1 % (0.0-1.0); %Eosinophils 0.1 % (0.0-10.0); %Lymphocytes 4.1 % (21.0-51.0); %Monocytes 2.8 % (0.0-10.0); Hemoglobin 16.1 g/dL (14.0-18.0); Mean Corpuscular HGB CONC 32.4 g/dL (32.0-36.0); Mean Corpuscular Hemoglobin 32.8 pg (27.0-31.0); Mean Platelet Volume 8.9 fL (7.4-10.4); Platelet Count 134 thou/uL (130-400); RBC Distribution Width 12.1 % (11.5-14.5); Red Blood Cell (RBC) Count 4.92 mill/uL (4.70-6.10)
[2021-12-07 03:50] LABS: Anion Gap 14 mmol/L (10-20); BUN (Urea Nitrogen) 18 mg/dL (8.4-25.7); Calc. Creatinine Clearance 101 mL/min (70-130); Calcium 8.3 mg/dL (7.8-10.44); Carbon Dioxide 23 mmol/L (23-31); Chloride 105 mmol/L (98-107); Glucose 126 mg/dL (83-110); Potassium 4.5 mmol/L (3.5-5.1); Sodium 137 mmol/L (136-145)
[2021-12-07] MEDS ORDERED: Labetalol HCl 100 MG/20 ML VIAL SLOW IVP PRN (08:52)
[2021-12-07] MEDS ORDERED: Non-Formulary Item 1 EACH (Tumeric/Ging/Olive/Oreg/Capryl [Candicidal Capsule] 1 EACH Cap PO SCH (09:00)
[2021-12-07] MEDS ORDERED: Non-Formulary Item 1 EACH (Cholecalciferol (Vitamin D3) [Vitamin D3] 5,000 UNITS Capsule) PO SCH (09:00)
[2021-12-07] MEDS ORDERED: Tumeric/Ging/Olive/Oreg/Capryl [Candicidal Capsule] PO SCH (09:00)
[2021-12-07] MEDS ORDERED: Non-Formulary Item 1 EACH (Zinc [Zinc] 50 MG Tablet) PO SCH (09:00)
[2021-12-07] MEDS ORDERED: ASCORBIC ACID 1000 MG PO SCH (09:00)
[2021-12-07] MEDS: Ascorbic Acid 500 mg Chewable Tablet PO SCH (09:11)
[2021-12-07] MEDS: Cholecalciferol 1,000 UNITS (25 MCG) TAB PO SCH (09:12)
[2021-12-07] MEDS: Levothyroxine Sodium 75 MCG TAB PO SCH (09:12)
[2021-12-07] MEDS: Brinzolamide 1% Ophth SUSP 10 ml Bottle EA EYE SCH ×2 (09:13→20:36)
[2021-12-07] MEDS: levETIRAcetam in NS 500 MG in Premix Bag 1 BAG IVPB SCH ×2 (09:13→20:35)
[2021-12-07] MEDS: Lisinopril 20 MG TAB PO SCH (09:13)
[2021-12-07] MEDS: Latanoprost 0.005% Ophth Soln 2.5 ml Bottle EA EYE SCH ×2 (09:13→20:37)
[2021-12-07] MEDS: Timolol 0.5% Ophth Soln 5 ml Bottle EA EYE SCH ×2 (09:14→20:36)
[2021-12-07] MEDS: Citalopram 20 MG TAB PO SCH (09:15)
[2021-12-07] MEDS: Zinc Sulfate 220 MG CAP PO SCH (09:18)
[2021-12-07] MEDS ORDERED: Dexamethasone 4 mg/ml Vial SLOW IVP SCH (12:00)
[2021-12-07] MEDS: Dexamethasone 1 MG TAB PO SCH ×2 (12:23→18:01)
[2021-12-08] MEDS: Dexamethasone 1 MG TAB PO SCH ×5 (00:53→17:36)
[2021-12-08] MEDS: Sodium Chloride 0.9% 1,000 ML IV SCH ×2 (00:54→16:22)
[2021-12-08] MEDS: Metoclopramide HCl 10 MG TAB PO PRN ×2 (09:12→22:24)
[2021-12-08] MEDS: Ascorbic Acid 500 mg Chewable Tablet PO SCH (09:13)
[2021-12-08] MEDS: Zinc Sulfate 220 MG CAP PO SCH (09:14)
[2021-12-08] MEDS: Lisinopril 20 MG TAB PO SCH (09:14)
[2021-12-08] MEDS: Cholecalciferol 1,000 UNITS (25 MCG) TAB PO SCH (09:15)
[2021-12-08] MEDS: Levothyroxine Sodium 75 MCG TAB PO SCH (09:17)
[2021-12-08] MEDS: Citalopram 20 MG TAB PO SCH (09:17)
[2021-12-08] MEDS: levETIRAcetam in NS 500 MG in Premix Bag 1 BAG IVPB SCH ×2 (09:18→22:24)
[2021-12-08] MEDS: Latanoprost 0.005% Ophth Soln 2.5 ml Bottle EA EYE SCH ×2 (09:25→22:25)
[2021-12-08] MEDS: Timolol 0.5% Ophth Soln 5 ml Bottle EA EYE SCH ×2 (09:25→22:24)
[2021-12-08] MEDS: Brinzolamide 1% Ophth SUSP 10 ml Bottle EA EYE SCH ×2 (09:26→22:25)
[2021-12-08] MEDS ORDERED: Dexamethasone 4 mg/ml Vial SLOW IVP SCH (12:00)
[2021-12-09] MEDS: Dexamethasone 1 MG TAB PO SCH ×3 (00:28→13:24)
[2021-12-09 05:12] VITALS: BMI 31.8
[2021-12-09] MEDS: Sodium Chloride 0.9% 1,000 ML IV SCH (05:21)
[2021-12-09] MEDS: Ascorbic Acid 500 mg Chewable Tablet PO SCH (08:41)
[2021-12-09] MEDS: Lisinopril 20 MG TAB PO SCH (08:42)
[2021-12-09] MEDS: Zinc Sulfate 220 MG CAP PO SCH (08:43)
[2021-12-09] MEDS: Citalopram 20 MG TAB PO SCH (08:43)
[2021-12-09] MEDS: Levothyroxine Sodium 75 MCG TAB PO SCH (08:43)
[2021-12-09] MEDS: Cholecalciferol 1,000 UNITS (25 MCG) TAB PO SCH (08:43)
[2021-12-09] MEDS: levETIRAcetam in NS 500 MG in Premix Bag 1 BAG IVPB SCH (08:44)
[2021-12-09] MEDS ORDERED: Dexamethasone 4 mg/ml Vial SLOW IVP SCH (12:00)
[2021-12-09] MEDS ORDERED: Dexamethasone 1 MG TAB PO SCH (12:00)
[2021-12-09 12:15] VITALS: BP 159/91; TEMP 97.4
[2021-12-09] MEDS: Timolol 0.5% Ophth Soln 5 ml Bottle EA EYE SCH (12:32)
[2021-12-09] MEDS: Latanoprost 0.005% Ophth Soln 2.5 ml Bottle EA EYE SCH ×2 (12:43→13:24)
[2021-12-09] MEDS: Brinzolamide 1% Ophth SUSP 10 ml Bottle EA EYE SCH (12:44)
[2021-12-10] MEDS ORDERED: Dexamethasone 1 MG TAB PO SCH (17:00)
== END 2021-12-09 15:35 | disposition home health service (06) | DRG 27 ==
LOC: SURG A 12-06 06:13 → EDSTATUS 12-06 07:45 → CCU 12-06 19:59 → SURG B 12-07 13:22
PROVIDERS: ADMIT Surgery; ATTEND Surgery
PROC: 00B70ZZ Excision of Cerebral Hemisphere, Open Approach (ICD-10-PCS; principal; 2021-12-06)
DX: C71.1 Malignant neoplasm of frontal lobe (principal); Z20.822 Contact with and (suspected) exposure to COVID-19; I10 Essential (primary) hypertension; E78.5 Hyperlipidemia, unspecified; E03.9 Hypothyroidism, unspecified; N40.0 Benign prostatic hyperplasia without lower urinary tract symptoms; H35.30 Unspecified macular degeneration; Z85.841 Personal history of malignant neoplasm of brain; Z85.820 Personal history of malignant melanoma of skin; Z98.890 Other specified postprocedural states; Z79.899 Other long term (current) drug therapy; Z79.890 Hormone replacement therapy
CPT/HCPCS: 36415; 36416; 70450; 80048; 85025; 86850; 86900; 86901; 88307; 88331; 88334; 93970; C1713; C1769; J0690; J1100; J1953; J2001; J2250; J2405; J2704; J3010; J3370; J3490; J7050; J8540

== ENCOUNTER 2021-12-02 10:26 | Outpatient (CLI) | payer MEDICARE ==
[2021-12-02 12:18] LABS: Anion Gap 14 mmol/L (10-20); BUN (Urea Nitrogen) 20 mg/dL (8.4-25.7); Calc. Creatinine Clearance 0 mL/min (70-130); Calcium 9.2 mg/dL (7.8-10.44); Carbon Dioxide 27 mmol/L (23-31); Chloride 101 mmol/L (98-107); Glucose 143 mg/dL (83-110); Hemoglobin 16.8 g/dL (13.5-17.5); Mean Corpuscular HGB CONC 33.7 g/dL (32.0-36.0); Mean Corpuscular Hemoglobin 32.8 pg (27.0-33.0); Mean Corpuscular Volume 97.3 fl (81.2-95.1); Mean Platelet Volume 11.4 fl (7.4-10.4); Platelet Count 154 10x3/uL (150-450); Potassium 4.5 mmol/L (3.5-5.1); RBC Distribution Width 12.3 % (11.5-14.5); Red Blood Cell (RBC) Count 5.12 10x6/uL (4.32-5.72); Sodium 137 mmol/L (136-145); White Blood Cell (WBC) Count 8.9 10x3/uL (3.5-10.5)
[2021-12-02 12:26] LABS: PTT 25.6 sec (22.0-33.0); Prothrombin Time 11.3 sec (9.5-12.1)
[2021-12-03 12:54] LABS: SARS-CoV-2 PCR by NAA Not Detected (NotDetected)
== END 2021-12-02 10:27 | disposition home or self-care (01) ==
LOC: LABBT 10:26
PROVIDERS: ATTEND Surgery
DX: Z01.818 Encounter for other preprocedural examination (principal); C71.9 Malignant neoplasm of brain, unspecified; Z20.822 Contact with and (suspected) exposure to COVID-19
CPT/HCPCS: 80048; 85027; 85610; 85730; 93005; U0003; U0005; 93010